=== PATIENT | female | born 1940 | race Two or more races ===

== ENCOUNTER 2017-05-28 17:39 | Inpatient (IN) | payer OTHER ==
--- NOTE | 2017-05-28 17:54 | PDOC ---
History of Present Illness - General History Source: Patient, EMS, Family Exam Limitations: No Limitations - History of Present Illness Initial Comments: 05/28/17 19:16 The patient is a 76 female with past medical history of who arrives to the ED via EMS with altered mental status that occurred today. As per patients family members they received a call from the sales expert home theater at 2:00 pm today who stated that the patient was speaking gibberish, referring to herself in third person, was not acting at her baseline, and felt feverish. The aid had stated that the patient also slipped out of bed today, at which the timing of this occurrence is not clear. She denies any LOC or head trauma. In the ED, the patients only complaint is of her chronic back pain. She denies any fever. She denies any numbness or tingling or incontinence. PCP: Dr. Anum Gee Allergies: N/A Social: Patient lives at home and has an aide <Leah Sánchez - Last Filed: 05/28/17 21:25> <Caridad Patel - Last Filed: 05/29/17 01:57> - General Chief Complaint: Injury Stated Complaint: FALL Time Seen by Provider: 05/28/17 17:53 Past History <Leah Sánchez - Last Filed: 05/28/17 21:25> - Past Medical History DVT: Yes (2 years ago, on coumadin) Diabetes: Yes GI Disorders: (colitis 07/04) HTN: Yes Hypercholesterolemia: Yes - Surgical History Cholecystectomy: Yes - Immunization History Immunization Up to Date: Yes - Psycho/Social/Smoking Cessation Hx Anxiety: No Suicidal Ideation: No Smoking Status: No Smoking History: Never smoked Have you smoked in the past 12 months: No Number of Cigarettes Smoked Daily: 0 Hx Alcohol Use: No <Caridad Patel - Last Filed: 05/29/17 01:57> - Past Medical History Allergies/Adverse Reactions: Allergies Allergy/AdvReac Type Severity Reaction Status Date / Time No Known Allergies Allergy Verified 05/28/17 17:58 Home Medications: Ambulatory Orders Ergocalciferol (Vitamin D2) [Vitamin D] 50,000 unit PO WEEKLY 01/08/15 Gabapentin 300 mg PO ASDIR 01/08/15 Insulin Glargine,Hum.rec.anlog [Lantus Solostar PEN (NF)] 20 units SQ HS Insulin NPL/Insulin Lispro [Humalog Mix 50-50 Kwikpen] 30 unit SQ BID 01/08/15 Metoprolol Tartrate [Lopressor -] 100 mg PO BID 01/08/15 Acetaminophen [Tylenol] 500 mg PO QID PRN 05/28/17 Aspirin [ASA -] 81 mg PO DAILY 05/28/17 Fluoxetine HCl 20 mg PO DAILY 05/28/17 Hydrocodone/Acetaminophen [Lorcet 5-325 mg Tablet] 1 each PO DAILY PRN 05/28/17 Memantine HCl [Namenda Xr] 7 mg PO DAILY 05/28/17 Nifedipine [Procardia Xl] 30 mg PO DAILY 05/28/17 Olmesartan Medoxomil 20 mg PO DAILY 05/28/17 Rosuvastatin [Crestor -] 20 mg PO HS 05/28/17 Tramadol HCl 50 mg PO TID 05/28/17 Review of Systems - Review of Systems Able to Perform ROS?: Yes Comments:: 05/28/17 19:18 CONSTITUTIONAL: Absent: fever, chills, diaphoresis, generalized weakness, malaise, loss of appetite HEENT: Absent: rhinorrhea, nasal congestion, throat pain, throat swelling, difficulty swallowing, mouth swelling, ear pain, eye pain, visual Changes CARDIOVASCULAR: Absent: chest pain, syncope, palpitations, irregular heart rate, lightheadedness , peripheral edema RESPIRATORY: Absent: cough, shortness of breath, dyspnea with exertion, orthopnea, wheezing, stridor, hemoptysis GASTROINTESTINAL: Absent: abdominal pain, abdominal distension, nausea, vomiting, diarrhea, constipation, melena, hematochezia GENITOURINARY: Absent: dysuria, frequency, urgency, hesitancy, hematuria, flank pain, genital pain MUSCULOSKELETAL: Present; chronic back pain SKIN: Absent: rash, itching, pallor HEMATOLOGIC/IMMUNOLOGIC: Absent: easy bleeding, easy bruising, lymphadenopathy, frequent infections ENDOCRINE: Absent: unexplained weight gain, unexplained weight loss, heat intolerance, cold intolerance NEUROLOGIC: Present: change in mental status Absent: headache,dizziness, unsteady gait, seizure, bladder or bowel incontinence PSYCHIATRIC: Absent: anxiety, depression, suicidal or homicidal ideation, hallucinations. <Leah Sánchez - Last Filed: 05/28/17 21:25> *Physical Exam - Vital Signs Last Vital Signs Temp Pulse Resp BP Pulse Ox 98.4 F 105 H 18 154/92 96 05/28/17 17:55 05/28/17 17:55 05/28/17 17:55 05/28/17 17:55 05/28/17 17:55 - Physical Exam Comments: 05/28/17 19:21 GENERAL: Obese. Awake, confused, not oriented to person. Follows commands. No acute distress. HEENT: Normocephalic, atraumatic. PERRLA, EOMI. No conjunctival pallor. Sclera are non- icteric. Moist mucous membranes. Oropharynx is clear. NECK: Supple. Full ROM. No JVD. Carotid pulses 2+ and symmetric, without bruits. No thyromegaly. No lymphadenopathy. CARDIOVASCULAR: Regular rate and rhythm. No murmurs, rubs, or gallops. Distal pulses are 2+ and symmetric. PULMONARY: No evidence of respiratory distress. Lungs clear to auscultation bilaterally. No wheezing, rales or rhonchi. ABDOMINAL: Soft. Non-tender. Non-distended. No rebound or guarding. No organomegaly. Normoactive bowel sounds. MUSCULOSKELETAL Normal range of motion at all joints. No bony deformities or tenderness. No CVA tenderness. EXTREMITIES: No cyanosis. No clubbing. No edema. No calf tenderness. SKIN: Warm and dry. Normal capillary refill. No rashes. No jaundice. NEUROLOGICAL: Alert, awake, appropriate. Cranial nerves 2-12 intact. No deficits to light touch and temperature in face, upper extremities and lower extremities. No motor deficits in the in face, upper extremities and lower extremities. Normoreflexic in the upper and lower extremities. Normal speech. Toes are down- going bilaterally. No pronator drift. No ataxia. PSYCHIATRIC: Cooperative. Good eye contact. Appropriate mood and affect. <PrincessLeah - Last Filed: 05/28/17 21:25> NIH Stroke Scale - Last Known Well Date/Time & Onset Date Last Known Well: 05/28/17 Time Last Known Well: 14:00 - Initial Evaluation Level of consciousness: Alert Ask patient the month and their age: Both incorrect Ask patient to open & close eyes; make fist and let go: Obeys both correctly Best gaze (horizontal eye movement): Normal Visual field testing: No visual field loss Facial paresis (Show teeth/raise eyebrows/close eyes tight): Normal symmetrical movement Motor Function: Left Arm: Normal Motor Function: Right Arm: Normal (extends arm 90 (or 45) degrees for 10 seconds without drift Motor Function: Left Leg: Normal (extends leg 30 degrees for 5 seconds without drift) Motor Function: Right Leg: Normal (extends leg 30 degrees for 5 seconds without drift) Limb Ataxia: No ataxia Sensory(Use pinprick test arms,legs,trunk,face/side to side): Normal Best language (Describe picture, name items, read sentences): No Aphasia Dysarthria (read several words): Mild to moderate slurring of words Extinction and Inattention: No abnormality - Total Score NIH Stroke Scale Score: 3 <Caridad Patel - Last Filed: 05/29/17 01:57> tPA Exclusion checklist 3-4.5h - Time Elapsed Date last known well: 05/28/17 Time last known well: 14:00 Elaspsed time: Day(s) and 11 Hour(s) and 55 Minutes - Thrombolytic Therapy Candidate Is patient eligible for thrombolytic therapy: No - Exclusion Criteria 3-4.5 hr SBP greater than 185 or DBP greater than 110mmHg despite tx: No Recent IC/spinal surgery,head trauma or stroke<3mos.: No Hx IC hemorrhage, IC neoplasm, AV malformation or aneurysm: No Active internal bleeding: No Blding diathesis(low plt ct, inc PTT,INR>1.7 or use of NOAC): No Symptoms suggest subarachnoid hemorrhage: No CT demonstrates multilobar infarct(>1/3 cerebral hemiphere): No Arterial puncture at noncompressible site in previous 7 days: No Blood glucose concentration less than 50mg/dL (2.7mmol/L): No - Relative Exclusion Criteria 3-4.5 hr Life expectancy <1 yr or severe co-morbid illness: No : No Patient/family refused: No Rapid improvement: No Stroke severity too mild: Yes Recent acute VA (w/in previous 3 months): No Seizure at onset with postictal residual neuro impairments: No Major surgery or serious trauma w/in previous 14 days: No Recent GI or hemorrhage (w/in previous 21 days): No - Add'l Relative Exclusion 3-4.5 hr Age > 80: No Hx of both diabetes AND prior ischemic stroke: No - Ineligibility reason(s) Reasons No tPA given: See reason(s) noted above <Caridad Patel - Last Filed: 05/29/17 01:57> Critical Care Time/MDM Note - Medical Decision Making Note: 05/28/17 19:[address] as reviewed by Dr. Carmona reports no evidence of acute intracranial pathology. Phone call placed to Dr. Santos, admitting physician for Dr. Gee. Case was discussed. Phone call placed to Dr. Greer, sewer separation designer neurologist and case was discussed. Documentation prepared by Leah Sánchez, acting as medical editor for Caridad Patel MD. <Leah Sánchez - Last Filed: 05/28/17 21:25> - Medical Decision Making Note: 05/29/17 01:55 76-year-old female brought in by ambulance due to confusion. It started at 2 PM in the afternoon. Her daughter said that her speech was garbled. The home health aide mention this when the daughter came home with in the afternoon at about 5:00. NIH score 3 No TPA due to mildness of the deficits and being out of the window for TPA CT of the head did not show any acute intracranial pathology, CBC and chemistries were reviewed. Patient does not have any infiltrates on the chest x -ray and is no evidence of a urinary tract infection Case is discussed with Dr. Hansen neurologist and the patient was given [address] Santos is the admitting physician <Caridad Patel - Last Filed: 05/29/17 01:57> Discharge Disposition <Leah Sánchez - Last Filed: 05/28/17 21:25> - Discharge Dispostion Admit: Yes <Caridad Patel - Last Filed: 05/29/17 01:57> - Diagnosis Hyperglycemia, Hypercholesteremia Altered mental status Qualifiers: Altered mental status type: unspecified Qualified Code(s): R41.82 - Altered mental status, unspecified Hypertension Qualifiers: Hypertension type: essential hypertension Qualified Code(s): I10 - Essential ( primary) hypertension TIA (transient ischemic attack) Qualifiers: Transient cerebral ischemia type: unspecified Qualified Code(s): G45.9 - Transient cerebral ischemic attack, unspecified - Discharge Dispostion Condition at time of disposition: Stable - Referrals
[2017-05-28] MEDS ORDERED: SODIUM CHLORIDE 1,000 ML IV SCH (18:00)
[2017-05-28 18:49] LABS: BASOPHIL 0.6 % (0-2.0); EOSINOPHIL 0.1 % (0-4.5); MCH 28.7 pg (25.7-33.7); MCHC 33.3 g/dl (32.0-36.0); MEAN CELL VOLUME 86.1 fl (80-96); MEAN PLT VOLUME 9.8 fl (7.5-11.1); NEUTROPHILS 76.9 % (42.8-82.8); PLATELET COUNT 170 K/MM3 (134-434); RDW 15.6 % (11.6-15.6); WHITE BLOOD COUNT 7.2 K/mm3 (4.0-10.0)
[2017-05-28 19:04] LABS: INR 1.11 (0.82-1.09); PROTHROMBIN TIME (PATIENT) 12.2 SEC (9.98-11.88)
[2017-05-28 19:22] LABS: ALBUMIN 3.6 g/dl (3.4-5.0); ALK PHOS 82 U/L (45-117); ANION GAP 8 (8-16); BILIRUBIN,TOTAL 0.4 mg/dL (0.2-1.0); CHOLESTEROL 207 mg/dL (50-200); CO2 28 mmol/L (21-32); CPK 82 IU/L (26-192); CREATININE 1.5 mg/dL (0.55-1.02); GLUCOSE,RANDOM 201 mg/dL (74-106); LDL CHOLESTEROL (ONLY SJRH) 130 mg/dL (5-100); SGOT/AST 19 U/L (15-37); SGPT/ALT 23 U/L (12-78); TOT PROT 7.1 g/dl (6.4-8.2); TROPONIN I < 0.02 ng/ml (0.00-0.05)
[2017-05-28 20:48] LABS: URINE APPEARANCE CLEAR; URINE BILIRUBIN NEGATIVE (NEGATIVE); URINE BLOOD NEGATIVE (NEGATIVE); URINE COLOR LTYELLOW; URINE GLUCOSE (UA) NEGATIVE (NEGATIVE); URINE KETONE NEGATIVE (NEGATIVE); URINE LEUK ESTERASE NEGATIVE (NEGATIVE); URINE NITRITE NEGATIVE (NEGATIVE); URINE UROBILINOGEN NEGATIVE mg/dL (0.2-1.0)
[2017-05-28 21:04] LABS: URINE PROTEIN 2+ (NEGATIVE)
[2017-05-28 21:05] LABS: URINE MUCUS RARE; URINE RBC <1 /hpf (0-3); URINE WBC <1 /hpf (3-5)
[2017-05-28] MEDS ORDERED: ASPIRIN 325 MG TABLET PO ONE (21:20)
[2017-05-28] MEDS ORDERED: ASPIRIN 325 MG TABLET ONE (21:33)
[2017-05-28] MEDS ORDERED: traMADol HCL 50 MG TABLET PO PRN (22:53)
[2017-05-28] MEDS: ACETAMINOPHEN 325 MG TABLET (FP) PO PRN (23:11)
[2017-05-28] MEDS ORDERED: ACETAMINOPHEN 325 MG TABLET (FP) ONE (23:12)
[2017-05-29 05:19] VITALS: BMI 41.1
[2017-05-29] MEDS ORDERED: METOPROLOL SUCCINATE 50 MG TAB.SR.24H (FP) ONE (05:51)
[2017-05-29] MEDS ORDERED: PROCHLORPERAZINE MALEATE 5 MG TABLET PO PRN (05:52)
[2017-05-29] MEDS ORDERED: METOPROLOL TARTRATE 50 MG TABLET (FP) PO ONE (05:52)
[2017-05-29] MEDS ORDERED: FUROSEMIDE 40 MG TABLET (FP) PO ONE (05:53)
[2017-05-29] MEDS ORDERED: FUROSEMIDE 40 MG/4 ML INJECTABLE VIAL IVPUSH ONE (05:54)
--- NOTE | 2017-05-29 06:10 | RAPID ---
<Jabari Flynn - Last Filed: 05/29/17 06:12> Physical Examination Vital Signs: Vital Signs Temperature 98.2 F 05/29/17 05:05 Pulse Rate 88 05/29/17 05:05 Respiratory Rate 20 05/29/17 05:05 Blood Pressure 142/72 05/29/17 05:05 O2 Sat by Pulse Oximetry (%) 96 05/29/17 05:05 Constitutional: Yes: Mild Distress, Obese, Other (Altered mentation) Neck: Yes: Supple, Trachea Midline Cardiovascular: Yes: Tachycardia, Other (regular rhythm) Respiratory: Yes: Regular, On Nasal O2, SOB. No: Accessory Muscle Use Neurological: Yes: Alert, Oriented (x2), Other (No focal deficits) Rapid Response - Rapid Response Assessment: Rapid response called at 0530. When team arrived pt was sitting at beside with nursing staff around her. She was mentally altered however was oriented x2. Nursing staff informed team that she had an elevated BP of 210/103, she had been vomiting, and she became short of breath. Pt confirmed increased work of breathing and was already on nasal cannula. Pt denied any chest pain. SpO2 on 2L NC: 98% EKG ordered showing sinus tachycardia with pre-existing 1st degree AV block. No ST abnormalities noted Lopressor 100mg PO standing dose was then administered Repeat BP taken was 159/94 P: Pt on admission had altered mental status which seemed unchanged on exam with being alert and oriented x2. Increased work of breathing noted; however O2sat okay on NC. 1) Hypertensive urgency with response to Lopressor 100mg PO --Repeat BP 159/94 --Troponin I ordered 2) Fluid overload on previous CXR --Lasix 40 IVP administered <Dwayne Sr - Last Filed: 05/29/17 06:15> Physical Examination Vital Signs: Vital Signs Temperature 98.2 F 05/29/17 05:05 Pulse Rate 88 05/29/17 05:05 Respiratory Rate 20 05/29/17 05:05 Blood Pressure 142/72 05/29/17 05:05 O2 Sat by Pulse Oximetry (%) 96 05/29/17 05:05 Findings/Remarks: Toprol XL 50 given BY Nurse instead of Lopressor. Will hold Metoprolol 100mg bid for now
[2017-05-29] MEDS: INSULIN SLIDING SCALE (NOVOLOG) 1 VIAL SQ SCH ×4 (06:27→22:19)
[2017-05-29] MEDS ORDERED: SODIUM CHLORIDE 0.45% 1,000 ML IV SCH (06:55)
[2017-05-29] MEDS ORDERED: ONDANSETRON 4 MG/2 ML VIAL IVPB PRN (06:55)
[2017-05-29] MEDS ORDERED: METOPROLOL TARTRATE 5 MG/5 ML VIAL IVPB PRN (07:05)
--- NOTE | 2017-05-29 08:49 | HP ---
Admitting History and Physical - Primary Care Physician PCP: Sendy Santos - Admission Chief Complaint: AMS History of Present Illness: The patient is a 76 female with past medical history of who arrives to the ED via EMS with altered mental status that occurred today. As per patients family members they received a call from the nursing home administrator at 2:00 pm today who stated that the patient was speaking gibberish, referring to herself in third person, was not acting at her baseline, and felt feverish. The aid had stated that the patient also slipped out of bed today, at which the timing of this occurrence is not clear. She denies any LOC or head trauma. In the ED, the patients only complaint is of her chronic back pain. She denies any fever. She denies any numbness or tingling or incontinence. 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 Cardiovascular: Yes: HTN Gastrointestinal: Yes: Other - Smoking History Smoking history: Never smoked Have you smoked in the past 12 months: No Aproximately how many cigarettes per day: 0 - Alcohol/Substance Use Hx Alcohol Use: No Home Medications - Allergies Allergies/Adverse Reactions: Allergies Allergy/AdvReac Type Severity Reaction Status Date / Time No Known Allergies Allergy Verified 05/28/17 17:58 - Home Medications Home Medications: Ambulatory Orders Ergocalciferol (Vitamin D2) [Vitamin D] 50,000 unit PO WEEKLY 01/08/15 Gabapentin 300 mg PO ASDIR 01/08/15 Insulin Glargine,Hum.rec.anlog [Lantus Solostar PEN (NF)] 20 units SQ HS Insulin NPL/Insulin Lispro [Humalog Mix 50-50 Kwikpen] 30 unit SQ BID 01/08/15 Metoprolol Tartrate [Lopressor -] 100 mg PO BID 01/08/15 Acetaminophen [Tylenol] 500 mg PO QID PRN 05/28/17 Aspirin [ASA -] 81 mg PO DAILY 05/28/17 Fluoxetine HCl 20 mg PO DAILY 05/28/17 Hydrocodone/Acetaminophen [Lorcet 5-325 mg Tablet] 1 each PO DAILY PRN 05/28/17 Memantine HCl [Namenda Xr] 7 mg PO DAILY 05/28/17 Nifedipine [Procardia Xl] 30 mg PO DAILY 05/28/17 Olmesartan Medoxomil 20 mg PO DAILY 05/28/17 Rosuvastatin [Crestor -] 20 mg PO HS 05/28/17 Tramadol HCl 50 mg PO TID 05/28/17 Review of Systems - Review of Systems Constitutional: reports: Weakness Eyes: reports: No Symptoms HENT: reports: No Symptoms Neck: reports: No Symptoms Cardiovascular: reports: No Symptoms Respiratory: reports: No Symptoms Gastrointestinal: reports: Abdominal Pain, Dysphagia, Nausea, Vomiting Genitourinary: reports: Incontinence Musculoskeletal: reports: Muscle Weakness Integumentary: reports: No Symptoms Neurological: reports: Pre-Existing Deficit, Unsteady Gait, Weakness Endocrine: reports: No Symptoms Hematology/Lymphatic: reports: No Symptoms Psychiatric: reports: Other Physical Examination Vital Signs: Vital Signs Temperature 98.2 F 05/29/17 05:05 Pulse Rate 88 05/29/17 05:05 Respiratory Rate 20 05/29/17 05:05 Blood Pressure 142/72 05/29/17 05:05 O2 Sat by Pulse Oximetry (%) 96 05/29/17 05:05 Constitutional: Yes: Mild Distress Eyes: Yes: WNL HENT: Yes: WNL Neck: Yes: WNL Cardiovascular: Yes: WNL Respiratory: Yes: WNL Gastrointestinal: Yes: Other Renal/: Yes: WNL Musculoskeletal: Yes: WNL Extremities: Yes: WNL Edema: No Peripheral Pulses WNL: Yes Integumentary: Yes: WNL Wound/Incision: Yes: Clean/Dry Neurological: Yes: Pre-Existing Deficit ...Motor Strength: LLE, RLE Psychiatric: Yes: Other Imaging - Results Cat Scan: Report Reviewed Problem List - Problems (1) Altered mental status Code(s): R41.82 - ALTERED MENTAL STATUS, UNSPECIFIED Qualifiers: Altered mental status type: unspecified Qualified Code(s): R41.82 - Altered mental status, unspecified (2) TIA (transient ischemic attack) Code(s): G45.9 - TRANSIENT CEREBRAL ISCHEMIC ATTACK, UNSPECIFIED Qualifiers: Transient cerebral ischemia type: unspecified Qualified Code(s): G45.9 - Transient cerebral ischemic attack, unspecified (3) Weakness Code(s): R53.1 - WEAKNESS (4) Vomiting Code(s): R11.10 - VOMITING, UNSPECIFIED Assessment/Plan ABD XRAY FOR VOMITING TRANSFER TELEMETRY CARDIO AND GI EVAL NEURO CHECKS FOR TIA LIPID PANEL PT EVAL [facility]
[2017-05-29 09:11] LABS: MCH 28.3 pg (25.7-33.7); MCHC 32.9 g/dl (32.0-36.0); MEAN CELL VOLUME 86.2 fl (80-96); MEAN PLT VOLUME 9.7 fl (7.5-11.1); PLATELET COUNT 159 K/MM3 (134-434); RDW 15.1 % (11.6-15.6); WHITE BLOOD COUNT 5.3 K/mm3 (4.0-10.0)
[2017-05-29] MEDS ORDERED: METOPROLOL SUCCINATE 50 MG TAB.SR.24H (FP) PO ONE (09:15)
[2017-05-29 09:56] LABS: ALBUMIN 3.6 g/dl (3.4-5.0); AMYLASE 30 U/L (25-115); ANION GAP 9 (8-16); CALCIUM 8.7 mg/dL (8.5-10.1); CO2 28 mmol/L (21-32); GLUCOSE,RANDOM 208 mg/dL (74-106)
[2017-05-29] MEDS ORDERED: METOPROLOL TARTRATE 50 MG TABLET (FP) PO SCH (10:00)
[2017-05-29] MEDS ORDERED: VALSARTAN 80 MG TABLET (UD) PO SCH (10:00)
[2017-05-29] MEDS ORDERED: ASPIRIN COATED 81 MG TABLET.EC PO SCH (10:00)
[2017-05-29] MEDS ORDERED: NIFEdipine E.R. 30 MG TABLET (FP) PO SCH (10:00)
[2017-05-29] MEDS ORDERED: FLUoxetine HCL 10 MG CAPSULE (FP) PO SCH (10:00)
[2017-05-29 10:03] LABS: ALK PHOS 77 U/L (45-117); BILIRUBIN,TOTAL 0.5 mg/dL (0.2-1.0); CREATININE 1.6 mg/dL (0.55-1.02); SGOT/AST 23 U/L (15-37); SGPT/ALT 26 U/L (12-78); TOT PROT 7.4 g/dl (6.4-8.2); TROPONIN I 0.02 ng/ml (0.00-0.05)
--- NOTE | 2017-05-29 10:38 | CONSULT ---
Admitting History and Physical - Primary Care Physician PCP: Sendy Santos - Admission History of Present Illness: Per EMR: "- Admission Chief Complaint: AMS History of Present Illness: The patient is a 76 female with past medical history of who arrives to the ED via EMS with altered mental status that occurred today. As per patients family members they received a call from the home service demonstrator at 2:00 pm today who stated that the patient was speaking gibberish, referring to herself in third person, was not acting at her baseline, and felt feverish. The aid had stated that the patient also slipped out of bed today, at which the timing of this occurrence is not clear. She denies any LOC or head trauma. In the ED, the patients only complaint is of her chronic back pain. She denies any fever. She denies any numbness or tingling or incontinence." Pt vomited x 3 at 5 am today. Selected Entries 05/28/17 05/28/17 05/29/17 17:55 22:34 05:05 Temperature 98.4 F 99.7 F H 98.2 F Laboratory Tests 05/28/17 05/29/17 18:20 08:30 WBC 7.2 5.3 History Source: Medical Record Limitations to Obtaining History: Clinical Condition - Past Medical History Cardiovascular: Yes: HTN Gastrointestinal: Yes: Other - Smoking History Smoking history: Never smoked Have you smoked in the past 12 months: No Aproximately how many cigarettes per day: 0 - Alcohol/Substance Use Hx Alcohol Use: No History - Admission Reason For Visit: GENERALIZED WEAKNESS,HYPERCHOLESTEROLEMIA - Diagnostics X-ray: Report Reviewed CT Scan: Report Reviewed - General Mental Status: Awake and Alert Attention: Intact Ability to Follow Directions: Fair (follows 1 stage by not simple 2 stage commands) Head/Neck Control: WFL - Hearing Hearing: Functional Hearing Aide: No Speech Evaluation - Communication 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) Communication: Yes: Simple Responses, Aphasia, Language Barrier Oral Expression Ability: Yes: Moderate Impairment - Speech Production Apraxia: No Able to Make Needs Known: Yes: Moderately Impaired - Speech Characteristics Voice Loudness: Normal Voice Pitch: Yes: Normal Voice Phonatory-based Quality: Yes: Normal Speech Pattern: Impaired Speech Clarity: < 25% Nasal Resonance: Normal Articulation: Yes: Precise - Language/Auditory Comprehension Follows: Yes: 1 Stage Simple Commands Observation: Able to respond to yes/no queries: No (inconsistent on simple level ), Comprehends Conversational Speech: No (simple ), Benefits from Slow Speech: Yes, Benefits from Repetiton: Yes, Benefits from Increased Volume of Speech: No - Language/Verbal Expression Aphasia: Yes: Paraphrasic Errors, Neologisms Able to Respond to Simple Queries: Yes: Moderately Impaired Able to Communicate Wants and Needs: Yes: Moderately Impaired Functional Communication Status: Yes: Moderately Impaired - Swallow Evaluation/Bedside Assessment Current Nutritional Intake: Regular, Thin Liquids Oral Secretions: Yes: WFL Dentition: Yes: Missing Teeth Facial Symmetry at Rest: Symmetrical Facial Symmetry on Retraction: Symmetrical Against Resistance Opening: Normal Against Resistance Closing: Normal Pucker Lips: Normal Smile: Normal Lingual Movement: Normal Lingual Speed of Movement: Normal Lingual Movement Strgth Against Opposition: Normal Lingual Movement Characteristics: Normal Velopharyngeal Movement: Normal Laryngeal Movement: Able to Palpate Labial Seal: WFL Chewing: WFL (missing dentition) Oral Prep Time: WFL A-P Transit: WFL Pocketing: None Timing of Swallow: WFL Coughing/Throat Clear: No Change in Voice: No Recommendations - Speech Evaluation, Impression/Plan Impression: Pt presents with moderate receptive and expressive language deficits - She follows 1 stage by not simple 2 stage commands. She can name and repeat, sometimes respond to simple questions eg function of a chair. Prpositional speech is impaired, generally with neologisms and paraphasic errors with occasional word interspersed in unintelligible, nonfunctional language. She demonstrates no frustration or awareness and denies difficulty. No dysarthria or dysphagia evident. She is Setswana speaking.Seems confused as well, with impaired memory and insight. Continuously getting OOB unattended. 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 First CT head (-). Pending neurology consult. - Dysphagia Impressions/Plan Swallowing Skills: WFL Dysphagia Impressions: No Impairment *Silent aspiration: cannot be R/O at bedside Dysphagia Treatment Plan: Safe Rate, 1/2 tsp. at a time, Elevate HOB during feed - Recommendations Diet Consistency: Regular (soft, easy to chew due to missing dentition) Liquids: Thin Liquids
[2017-05-29] MEDS ORDERED: PT OWN MED DRAWER 7, Y5N ONE ×2 (11:18→11:34)
[2017-05-29] MEDS: MEMANTINE HCL 5 MG TABLET (UD) PO SCH ×2 (11:23→22:19)
[2017-05-29] MEDS ORDERED: INSULIN (NOVOLOG) ASPART 100 UNITS/ML 10ML VIAL ONE ×2 (11:33→19:20)
[2017-05-29] MEDS ORDERED: PNEUMOC 13-VAL CONJ-DIP CRM/PF 0.5 ML DISP.SYRIN IM ONE (12:15)
--- NOTE | 2017-05-29 13:34 | CONSULT ---
Consultation: REQUESTING PROVIDER: CONSULT REQUEST: We have been asked to medically evaluate this patient for ( Nephrology). HISTORY OF PRESENT ILLNESS: History obtained from previous er and h/p. Patient is sinhala speaking and is restless, not oriented. The patient is a 76 female with past medical history of who arrives to the ED via EMS with altered mental status that occurred today. As per patients family members they received a call from the salesperson trailers and motor homes at 2:00 pm today who stated that the patient was speaking gibberish, referring to herself in third person, was not acting at her baseline, and felt feverish. The aid had stated that the patient also slipped out of bed today, at which the timing of this occurrence is not clear. She denies any LOC or head trauma. In the ED, the patients only complaint is of her chronic back pain. She denies any fever. She denies any numbness or tingling or incontinence. REVIEW OF SYSTEMS: unobtainable. PHYSICAL EXAMINATION Vital Signs - 24 hr 05/28/17 05/29/17 05/29/17 22:34 02:16 05:05 Temperature 99.7 F H 98.2 F Pulse Rate 88 Pulse Rate [ 111 H 92 H Apical] Respiratory 20 27 H 20 Rate Blood Pressure 142/72 Blood Pressure 127/78 [Right Arm] O2 Sat by Pulse 97 93 L 96 Oximetry (%) 05/29/17 05/29/17 09:00 11:31 Temperature 98.8 F Pulse Rate 99 H Pulse Rate [ Apical] Respiratory 20 20 Rate Blood Pressure 178/86 Blood Pressure [Right Arm] O2 Sat by Pulse 96 Oximetry (%) GENERAL: Awake, HEAD: Normal with no signs of trauma. EYES: conjunctiva clear. No lid lag. EARS, NOSE, THROAT: dry mucous membranes. LUNGS: Breath sounds equal, clear to auscultation bilaterally. No wheezes, and no crackles. No accessory muscle use. HEART: regular, s1s2 normal ABDOMEN: Soft, nontender, not distended, normoactive bowel sounds, no guarding, no rebound, MUSCULOSKELETAL: Normal range of motion at all joints. No bony deformities or tenderness. No CVA tenderness. UPPER EXTREMITIES: 2+ pulses, warm, well-perfused. No cyanosis. LOWER EXTREMITIES:warm, well-perfused. No calf tenderness. No peripheral edema. SKIN: Warm, dry, Laboratory Results - last 24 hr 05/28/17 05/29/17 05/29/17 21:21 06:27 08:30 WBC 5.3 RBC 4.80 Hgb 13.6 Hct 41.4 MCV 86.2 MCH 28.3 MCHC 32.9 RDW 15.1 Plt Count 159 MPV 9.7 Sodium Potassium Chloride Carbon Dioxide Anion Gap BUN Creatinine Creat Clearance w eGFR POC Glucometer 195 Random Glucose Hemoglobin A1c % Calcium Total Bilirubin AST ALT Alkaline Phosphatase Troponin I B-Natriuretic Peptide 773.04 H Total Protein Albumin Total Amylase Lipase Vitamin B12 Serum Folate RPR Titer 05/29/17 05/29/17 05/29/17 08:30 08:30 08:30 WBC RBC Hgb Hct MCV MCH MCHC RDW Plt Count MPV Sodium 134 L Potassium 3.7 Chloride 97 L Carbon Dioxide 28 Anion Gap 9 BUN 20 H Creatinine 1.6 H Creat Clearance w eGFR 31.51 POC Glucometer Random Glucose 208 H Hemoglobin A1c % Calcium 8.7 Total Bilirubin 0.5 D AST 23 D ALT 26 Alkaline Phosphatase 77 Troponin I 0.02 B-Natriuretic Peptide Total Protein 7.4 Albumin 3.6 Total Amylase 30 Lipase 91 Vitamin B12 604 Serum Folate 39 H RPR Titer Nonreactive 05/29/17 05/29/17 05/29/17 08:30 08:30 08:35 WBC RBC Hgb Hct MCV MCH MCHC RDW Plt Count MPV Sodium Potassium Chloride Carbon Dioxide Anion Gap BUN Creatinine Creat Clearance w eGFR POC Glucometer Random Glucose Hemoglobin A1c % 8.5 H D Calcium Total Bilirubin AST ALT Alkaline Phosphatase Troponin I Cancelled B-Natriuretic Peptide Total Protein Albumin Total Amylase Cancelled Lipase Cancelled Vitamin B12 Serum Folate RPR Titer 05/29/17 11:26 WBC RBC Hgb Hct MCV MCH MCHC RDW Plt Count MPV Sodium Potassium Chloride Carbon Dioxide Anion Gap BUN Creatinine Creat Clearance w eGFR POC Glucometer 236 Random Glucose Hemoglobin A1c % Calcium Total Bilirubin AST ALT Alkaline Phosphatase Troponin I B-Natriuretic Peptide Total Protein Albumin Total Amylase Lipase Vitamin B12 Serum Folate RPR Titer Active Medications Generic Name Dose Route Start Last Admin Trade Name Freq PRN Reason Stop Dose Admin Acetaminophen 650 mg 05/28/17 22:53 05/28/17 23:11 Tylenol - PO 650 mg Q6H PRN Administration FEVER OR PAIN Aspirin 81 mg 05/29/17 10:00 08/08/17 11:23 Ecotrin - PO 81 mg DAILY GORGE Administration Fluoxetine HCl 10 mg 05/29/17 10:00 05/29/17 12:21 Prozac - PO 10 mg DAILY GORGE Administration Sodium Chloride 1,000 mls @ 40 mls/hr 05/29/17 06:55 05/29/17 09:05 1/2 Normal Saline IV 40 mls/hr ASDIR GORGE Administration Insulin Aspart 1 vial 05/29/17 07:00 05/29/17 11:34 Novolog Vial Sliding Scale - SQ 4 unit ACHS GORGE Administration Protocol Insulin Detemir 20 units 05/29/17 22:00 Levemir Vial SQ HS GORGE Memantine 5 mg 05/29/17 10:00 05/29/17 11:23 Namenda - PO 5 mg BID GORGE Administration Metoprolol Tartrate 100 mg 05/29/17 10:00 Lopressor - PO BID GORGE Metoprolol Tartrate 5 mg 05/29/17 07:05 Lopressor Injection - IVPB Q6H PRN SBP >120 Nifedipine 30 mg 05/29/17 10:00 05/29/17 11:23 Procardia Xl - PO 30 mg DAILY GORGE Administration Ondansetron HCl 4 mg 05/29/17 06:55 05/29/17 09:05 Zofran Injection IVPB 4 mg Q6H PRN Administration NAUSEA AND/OR VOMITING Prochlorperazine Maleate 5 mg 05/29/17 05:52 Compazine - PO Q4H PRN NAUSEA AND/OR VOMITING Rosuvastatin Calcium 20 mg 05/29/17 22:00 Crestor - PO HS GORGE Tramadol HCl 50 mg 05/28/17 22:53 Ultram - PO Q8H PRN PAIN Valsartan 80 mg 05/29/17 10:00 05/29/17 11:23 Diovan - PO 80 mg DAILY GORGE Administration ASSESSMENT/PLAN: CKD Pseudohyponatremia. Altered mental status Weakness DM Dementia Plan patient is at her base line cr and bun. Her base line is 1.5-1.6 Pseudohypontremia is due to hyperglycemia, corrected Na is more than 135 Monitor renal function. Monitor electrolytes. Avoid nephrotoxic drugs. Monitor and control BP. Monitor and control blood sugar Monitor intake and output. Dispo: We will continue to follow the patient. Thank you for this consultative opportunity. Visit type - Emergency Visit Emergency Visit: Yes ED Registration Date: 05/28/17 Care time: The patient presented to the Emergency Department on the above date and was hospitalized for further evaluation of their emergent condition. - New Patient This patient is new to me today: Yes Date on this admission: 05/29/17 - Critical Care Critical Care patient: No
--- NOTE | 2017-05-29 13:56 | EKG ---
Test Reason : Blood Pressure : / mmHG Vent. Rate : 101 BPM Atrial Rate : 101 BPM P-R Int : 218 ms QRS Dur : 104 ms QT Int : 370 ms P-R-T Axes : 052 -61 080 degrees QTc Int : 479 ms SINUS TACHYCARDIA WITH 1ST DEGREE A-V BLOCK LEFT AXIS DEVIATION ( LAFB). PULMONARY DISEASE PATTERN ABNORMAL ECG WHEN COMPARED WITH ECG OF 17-MAR-2014 03:48, VENT. RATE HAS INCREASED BY 46 BPM INCOMPLETE RIGHT BUNDLE BRANCH BLOCK IS NO LONGER PRESENT T WAVE AMPLITUDE HAS INCREASED IN ANTERIOR LEADS BASELINE ARTIFACTS REPEAT EKG IF CLINICALLY INDICATED Confirmed by SADIE GRANDE MD ([id number]) on 05/29/2017 1:56:00 PM Referred By: Confirmed By:SADIE GRANDE MD
[2017-05-29 14:00] LABS: ERYTHROCYTE SEDIMENTATION RATE 35 mm/hr (0-30)
[2017-05-29] MEDS: ACETAMINOPHEN 325 MG TABLET (FP) PO PRN (15:41)
[2017-05-29] MEDS: SODIUM CHLORIDE 0.45% 1,000 ML IV SCH (15:43)
--- NOTE | 2017-05-29 16:14 | CON.CARD ---
Consult Consult Specialty:: Cardiology Reason for Consultation:: HTN. TIA - History of Present Illness Chief Complaint: Change in mental status History of Present Illness: This is a 76 year old female with a PMH of HTN. She presented to the ED with a change in mental status and an expressive aphasia. EKG showed sinus tachycardia at 101 BPM with LAD, PRWP across the anterior precordial leads, and NSSTTW changes. Initial Head CT was without acuter pathology. BP was elevated to 178/86 mmHg but reduced to 157/77 mmHg. 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 Cardio/Vascular: Yes: HTN Gastrointestinal: Yes: Other - Alcohol/Substance Use Hx Alcohol Use: No - Smoking History Smoking history: Never smoked Have you smoked in the past 12 months: No Aproximately how many cigarettes per day: 0 Home Medications - Allergies Allergies/Adverse Reactions: Allergies Allergy/AdvReac Type Severity Reaction Status Date / Time No Known Allergies Allergy Verified 05/28/17 17:58 - Home Medications Home Medications: Ambulatory Orders Ergocalciferol (Vitamin D2) [Vitamin D] 50,000 unit PO WEEKLY 01/08/15 Gabapentin 300 mg PO ASDIR 01/08/15 Insulin Glargine,Hum.rec.anlog [Lantus Solostar PEN (NF)] 20 units SQ HS Insulin NPL/Insulin Lispro [Humalog Mix 50-50 Kwikpen] 30 unit SQ BID 01/08/15 Metoprolol Tartrate [Lopressor -] 100 mg PO BID 01/08/15 Acetaminophen [Tylenol] 500 mg PO QID PRN 05/28/17 Aspirin [ASA -] 81 mg PO DAILY 05/28/17 Fluoxetine HCl 20 mg PO DAILY 05/28/17 Hydrocodone/Acetaminophen [Lorcet 5-325 mg Tablet] 1 each PO DAILY PRN 05/28/17 Memantine HCl [Namenda Xr] 7 mg PO DAILY 05/28/17 Nifedipine [Procardia Xl] 30 mg PO DAILY 05/28/17 Olmesartan Medoxomil 20 mg PO DAILY 05/28/17 Rosuvastatin [Crestor -] 20 mg PO HS 05/28/17 Tramadol HCl 50 mg PO TID 05/28/17 Review of Systems Unable to obtain ROS, reason: As per HPI Vital Signs: Vital Signs Temperature 103.7 F H 05/29/17 15:50 Pulse Rate 99 H 05/29/17 15:50 Respiratory Rate 20 05/29/17 11:31 Blood Pressure 157/77 05/29/17 15:50 O2 Sat by Pulse Oximetry (%) 96 05/29/17 09:00 Constitutional: Yes: No Distress Neck: Yes: WNL Respiratory: Yes: CTA Bilaterally Gastrointestinal: Yes: Soft Cardiovascular: Yes: Regular Rate and Rhythm Heart Sounds: Yes: S1, S2 (No MRHG) Extremities: Yes: WNL Edema: No - Other Data Labs, Other Data: CBC, BMP 05/29/17 08:30 05/29/17 08:30 INR, PTT INR 1.11 (0.82-1.09) 05/28/17 18:20 Troponin, BNP 05/28/17 05/29/17 05/29/17 21:21 08:30 08:35 Troponin I 0.02 Cancelled B-Natriuretic Peptide 773.04 H Troponin, BNP 05/28/17 05/29/17 05/29/17 21:21 08:30 08:35 Troponin I 0.02 Cancelled B-Natriuretic Peptide 773.04 H Assessment/Plan Change in Mental Status TIA/CVA Monitor for atrial arrhythmias Obtain and Echocardiogram Obtain Carotid Dopplers Current BP 157/77 mmHg and would continue current BP meds including: Metoprolol Tartate 100 mg PO BID Nifedipine XL 30 mg daily Olmesartan 20 mg daily Continue for secondary prevention: Aspirin 81 mg PO daily Crestor 20 mg PO daily Will follow with you.
--- NOTE | 2017-05-29 16:50 | CON.GI ---
Consult Consult Specialty:: GI: For Dr. Fu Referred by:: Aaliyah Botello NP Reason for Consultation:: Vomiting - History of Present Illness Chief Complaint: Patient confused, cannot give CC. Admitted for change in mental status History of Present Illness: 76F admitted through [facility] ER for evaluation of altered mental status. Patient' s family was present at bedside to give history. Her son tells me that she was in her usual state of health up until Sunday, when she began speaking incoherently at times, became more forgetful and lethargic/somnolent. While he describes Ms. Mccormick as being mildly forgetful at times as her baseline mental status, she had a major change in her overall status. While confused, she had a bowel movement in the bed and then subsequently confused, prompting further evaluation. Called now to evaluate an episode of vomiting. This occurred early this morning at around 5 AM. There has been no further vomiting today and she denies abdominal pain. She has a reported temp of 103.7 per her nurse around the time of my evaluation. Ms. Mccormick's son tells me that prior to admission, a tactile fever was described by her home health aid however a temperature was not taken. There has been no reported complaints of headache, cough, abdominal pain. She does have a chronic lower back pain and per her family, they believe that Ms. Mccormick has been complaining about it moreso of late. There has been no reported diarrhea since admission. There has been no recent travel or sick contacts with similar complaints. 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 Cardio/Vascular: Yes: HTN Gastrointestinal: Yes: Other - Past Surgical History Past Surgical History: Yes: Cholecystectomy (Laparoscopic), Tubal Ligation ( possible per the family) - Alcohol/Substance Use Hx Alcohol Use: No - Smoking History Smoking history: Never smoked Have you smoked in the past 12 months: No Aproximately how many cigarettes per day: 0 - Social History Usual Living Arrangement: Alone ADL: Support Services Place of : Other History of Recent Travel: No Home Medications - Allergies Allergies/Adverse Reactions: Allergies Allergy/AdvReac Type Severity Reaction Status Date / Time No Known Allergies Allergy Verified 05/28/17 17:58 - Home Medications Home Medications: Ambulatory Orders Ergocalciferol (Vitamin D2) [Vitamin D] 50,000 unit PO WEEKLY 01/08/15 Gabapentin 300 mg PO ASDIR 01/08/15 Insulin Glargine,Hum.rec.anlog [Lantus Solostar PEN (NF)] 20 units SQ HS Insulin NPL/Insulin Lispro [Humalog Mix 50-50 Kwikpen] 30 unit SQ BID 01/08/15 Metoprolol Tartrate [Lopressor -] 100 mg PO BID 01/08/15 Acetaminophen [Tylenol] 500 mg PO QID PRN 05/28/17 Aspirin [ASA -] 81 mg PO DAILY 05/28/17 Fluoxetine HCl 20 mg PO DAILY 05/28/17 Hydrocodone/Acetaminophen [Lorcet 5-325 mg Tablet] 1 each PO DAILY PRN 05/28/17 Memantine HCl [Namenda Xr] 7 mg PO DAILY 05/28/17 Nifedipine [Procardia Xl] 30 mg PO DAILY 05/28/17 Olmesartan Medoxomil 20 mg PO DAILY 05/28/17 Rosuvastatin [Crestor -] 20 mg PO HS 05/28/17 Tramadol HCl 50 mg PO TID 05/28/17 Family Disease History - Family Disease History Other Family History: Non-contriubuatory Review of Systems - Review of Systems Constitutional: reports: Fever, Lethargy. denies: Unintentional Wgt. Loss Cardiovascular: denies: Chest Pain Respiratory: reports: SOB (baseline, worse when laying flat) Gastrointestinal: reports: Vomiting. denies: Abdominal Pain, Constipation, Diarrhea, Melena, Rectal Bleeding, Vomiting Blood Genitourinary: denies: Frequency, Urgency Musculoskeletal: reports: Back Pain (lower back pain) Neurological: reports: Confusion Physical Exam-GI Vital Signs: Vital Signs Temperature 103.7 F H 05/29/17 15:50 Pulse Rate 99 H 05/29/17 15:50 Respiratory Rate 20 05/29/17 11:31 Blood Pressure 157/77 05/29/17 15:50 O2 Sat by Pulse Oximetry (%) 96 05/29/17 09:00 Constitutional: Yes: Calm Eyes: No: Sclera Icterus Cardiovascular: Yes: Tachycardia. No: Murmur Respiratory: Yes: CTA Bilaterally Gastrointestinal Inspection: Yes: Scars (healed trochar scars, healed small midline pelvic surgical scar) ...Auscultate: Yes: Normoactive Bowel Sounds ...Palpate: No: Tenderness ...Percussion: Yes: Tympanitic ( mild tympany LUQ) Edema: No (No LE edema) Neurological: Yes: Alert, Confusion Labs: CBC, BMP 05/29/17 08:30 05/29/17 08:30 INR, PTT INR 1.11 (0.82-1.09) 05/28/17 18:20 05/28/17 20:30 Urine Color Ltyellow Urine Appearance Clear Urine pH 7.0 D Ur Specific [place] 1.020 Urine Protein 2+ H Urine Glucose (UA) Negative Urine Ketones Negative Urine Blood Negative Urine Nitrite Negative Urine Bilirubin Negative Urine Urobilinogen Negative Ur Leukocyte Esterase Negative Urine RBC <1 Urine WBC <1 Ur Epithelial Cells Rare Urine Mucus Rare Imaging - Results X-ray: Report Reviewed (suboptimal study) Problem List - Problems (1) Vomiting Assessment/Plan: No further vomiting at this time. ? if secondary to ongoing systemic process such as infection, secondary to pain or secondary to gastroparesis elevated blood glucose in the setting of systemic process as opposed to primary GI etiology. Hold opiate analgesics Aspiration precautions CT scan of the abdomen and pelvis has been ordered to evaluate for ileus / gastric distention CT scan of the Chest / L-Spine ordered as well to assess for a source of infection in the setting of marked fever. This was discussed with Dr. Santos ID evaluation has been requested by Dr. Santos Consider neuro eval Await abd/pelvis CT scan results Clear liquids for now Code(s): R11.10 - VOMITING, UNSPECIFIED Qualifiers: Vomiting type: unspecified
--- NOTE | 2017-05-29 17:32 | PN ---
Teaching Attending Note Name of Resident: Tristan Shaikh (Nephrology) ATTENDING PHYSICIAN STATEMENT I saw and evaluated the patient. I reviewed the resident's note and discussed the case with the resident. I agree with the resident's findings and plan as documented. Nephrology Consult Please see consult filled out by resident. Called to evaluate pt for elevated creatinine. She is awake but not able to give full history. She complains of generalized malaise. She denies dysuria or hematuria. pmhx dm htn chol nkda family hx unable to obtain social neg Current Medications Generic Name Dose Route Start Last Admin Trade Name Freq PRN Reason Stop Dose Admin Acetaminophen 650 mg 05/28/17 22:53 05/29/17 15:41 Tylenol - PO 650 mg Q6H PRN Administration FEVER OR PAIN Aspirin 81 mg 05/29/17 10:00 05/29/17 11:23 Ecotrin - PO 81 mg DAILY GORGE Administration Fluoxetine HCl 10 mg 05/29/17 10:00 05/29/17 12:21 Prozac - PO 10 mg DAILY GORGE Administration Sodium Chloride 1,000 mls @ 75 mls/hr 05/29/17 15:03 05/29/17 15:43 1/2 Normal Saline IV 75 mls/hr ASDIR GORGE Administration Insulin Aspart 1 vial 05/29/17 07:00 05/29/17 11:34 Novolog Vial Sliding Scale - SQ 4 unit ACHS GORGE Administration Protocol Insulin Detemir 20 units 05/29/17 22:00 Levemir Vial SQ HS GORGE Memantine 5 mg 05/29/17 10:00 05/29/17 11:23 Namenda - PO 5 mg BID GORGE Administration Metoprolol Tartrate 100 mg 05/29/17 10:00 Lopressor - PO BID GORGE Metoprolol Tartrate 5 mg 05/29/17 07:05 Lopressor Injection - IVPB Q6H PRN SBP >120 Nifedipine 30 mg 05/29/17 10:00 05/29/17 11:23 Procardia Xl - PO 30 mg DAILY GORGE Administration Ondansetron HCl 4 mg 05/29/17 06:55 05/29/17 09:05 Zofran Injection IVPB 4 mg Q6H PRN Administration NAUSEA AND/OR VOMITING Prochlorperazine Maleate 5 mg 05/29/17 05:52 Compazine - PO Q4H PRN NAUSEA AND/OR VOMITING Rosuvastatin Calcium 20 mg 05/29/17 22:00 Crestor - PO HS GORGE Tramadol HCl 50 mg 05/28/17 22:53 Ultram - PO Q8H PRN PAIN Valsartan 80 mg 05/29/17 10:00 05/29/17 11:23 Diovan - PO 80 mg DAILY GORGE Administration Last Vital Signs Temp Pulse Resp BP Pulse Ox 103.7 F H 99 H 20 157/77 96 05/29/17 15:50 05/29/17 15:50 05/29/17 11:31 05/29/17 15:50 05/29/17 09:00 Laboratory Tests 12/18/14 01/08/15 05/28/17 13:55 22:57 18:20 WBC Hgb Creatinine 1.4 H 1.6 H 1.5 H Urine Protein 05/28/17 05/29/17 05/29/17 20:30 08:30 08:30 WBC 5.3 Hgb 13.6 Creatinine 1.6 H Urine Protein 2+ H cardio s1s2 reg pulm on nc GI soft, obese ext neg edema neuro awake skin neg rash Impression 1. CKD 2. DM 3. HTN 4. altered mental status 5. vomiting Plan - renal function is not far from baseline - monitor creatinine - gentle hydration - hold sedatives - follow cultures Dr Salmon
--- NOTE | 2017-05-29 17:47 | CON.NEURO ---
Consult - History of Present Illness History of Present Illness: brought for confusion and fall HPI 76 year old female history of DM, HTN, Alzheimer disease , brought to hospital for mental status change. Ct head was unremarkable. She was felt feverish and at hospital she is found to have 103 fever. She is sitting on chair. As per family she is confused and not able to communicate in swiss. She is more communicative in bermudian and she is not very coherent in bermudian either. 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 Cardio/Vascular: Yes: HTN Gastrointestinal: Yes: Other - Past Surgical History Past Surgical History: Yes: Cholecystectomy (Laparoscopic), Tubal Ligation ( possible per the family) - Alcohol/Substance Use Hx Alcohol Use: No - Smoking History Smoking history: Never smoked Have you smoked in the past 12 months: No Aproximately how many cigarettes per day: 0 - Social History Usual Living Arrangement: Alone ADL: Support Services History of Recent Travel: No Home Medications - Allergies Allergies/Adverse Reactions: Allergies Allergy/AdvReac Type Severity Reaction Status Date / Time No Known Allergies Allergy Verified 05/28/17 17:58 - Home Medications Home Medications: Ambulatory Orders Ergocalciferol (Vitamin D2) [Vitamin D] 50,000 unit PO WEEKLY 01/08/15 Gabapentin 300 mg PO ASDIR 01/08/15 Insulin Glargine,Hum.rec.anlog [Lantus Solostar PEN (NF)] 20 units SQ HS Insulin NPL/Insulin Lispro [Humalog Mix 50-50 Kwikpen] 30 unit SQ BID 01/08/15 Metoprolol Tartrate [Lopressor -] 100 mg PO BID 01/08/15 Acetaminophen [Tylenol] 500 mg PO QID PRN 05/28/17 Aspirin [ASA -] 81 mg PO DAILY 05/28/17 Fluoxetine HCl 20 mg PO DAILY 05/28/17 Hydrocodone/Acetaminophen [Lorcet 5-325 mg Tablet] 1 each PO DAILY PRN 05/28/17 Memantine HCl [Namenda Xr] 7 mg PO DAILY 05/28/17 Nifedipine [Procardia Xl] 30 mg PO DAILY 05/28/17 Olmesartan Medoxomil 20 mg PO DAILY 05/28/17 Rosuvastatin [Crestor -] 20 mg PO HS 05/28/17 Tramadol HCl 50 mg PO TID 05/28/17 Family Disease History - Family Disease History Other Family History: Non-contriubuatory Physical Exam-Neuro Vital Signs: Vital Signs Temperature 103.7 F H 05/29/17 15:50 Pulse Rate 99 H 05/29/17 15:50 Respiratory Rate 20 05/29/17 11:31 Blood Pressure 157/77 05/29/17 15:50 O2 Sat by Pulse Oximetry (%) 96 05/29/17 09:00 Labs: CBC, BMP 05/29/17 08:30 05/29/17 08:30 INR, PTT INR 1.11 (0.82-1.09) 05/28/17 18:20 NIH Stroke Scale - Total Score NIH Stroke Scale Score: 0 Imaging - Results Cat Scan: Report Reviewed Assessment/Plan cc brought for confusion and fall HPI 76 year old female history of DM, HTN, Alzheimer disease , brought to hospital for mental status change. Ct head was unremarkable. She was felt feverish and at hospital she is found to have 103 fever. She is sitting on chair. As per family she is confused and not able to communicate in swiss. She is more communicative in bermudian and she is not very coherent in bermudian either. Past Medical History DM, HTN and Dmentia Home Medication Ergocalciferol (Vitamin D2) [Vitamin D] 50,000 unit PO WEEKLY 01/08/15 Gabapentin 300 mg PO ASDIR 01/08/15 Insulin Glargine,Hum.rec.anlog [Lantus Solostar PEN (NF)] 20 units SQ HS Insulin NPL/Insulin Lispro [Humalog Mix 50-50 Kwikpen] 30 unit SQ BID 01/08/15 Metoprolol Tartrate [Lopressor -] 100 mg PO BID 01/08/15 Acetaminophen [Tylenol] 500 mg PO QID PRN 05/28/17 Aspirin [ASA -] 81 mg PO DAILY 05/28/17 Fluoxetine HCl 20 mg PO DAILY 05/28/17 Hydrocodone/Acetaminophen [Lorcet 5-325 mg Tablet] 1 each PO DAILY PRN 05/28/17 Memantine HCl [Namenda Xr] 7 mg PO DAILY 05/28/17 Nifedipine [Procardia Xl] 30 mg PO DAILY 05/28/17 Olmesartan Medoxomil 20 mg PO DAILY 05/28/17 Rosuvastatin [Crestor -] 20 mg PO HS 05/28/17 Tramadol HCl 50 mg PO TID 05/28/17 Physical Examination 103 temperature alert follow command, sitting in chair, able to track objects, and opens eye spontaneously she is oriented x 0 eomi, no face asymmetry, moving all extremity sensation is grossly normal ct head is unremarkable Assessment- Disorientation due to medical condition ( fever , etiology of fever is being investigated) , other possibility of stroke cant be rule out , Unlikley to be meningiits ( thereis no neck stiffness or headache ) Plan-- agree with MRI of brain - work up for fever - continue supportive treatment and current treatment Thanks for consult Jatin Greer MD Neurology Attending
[2017-05-29 20:37] LABS: BASOPHIL 0.5 % (0-2.0); EOSINOPHIL 0.1 % (0-4.5); MCH 28.9 pg (25.7-33.7); MEAN CELL VOLUME 87.6 fl (80-96); MEAN PLT VOLUME 10.7 fl (7.5-11.1); NEUTROPHILS 65.4 % (42.8-82.8); PLATELET COUNT 157 K/MM3 (134-434); RDW 15.3 % (11.6-15.6); WHITE BLOOD COUNT 5.7 K/mm3 (4.0-10.0)
[2017-05-29] MEDS ORDERED: ALPRAZolam 2 MG TABLET PO ONE (20:45)
[2017-05-29 21:07] LABS: ALBUMIN 3.5 g/dl (3.4-5.0); ANION GAP 9 (8-16); BILIRUBIN,TOTAL 0.5 mg/dL (0.2-1.0); CALCIUM 9.1 mg/dL (8.5-10.1); CO2 28 mmol/L (21-32); CREATININE 1.9 mg/dL (0.55-1.02); GLUCOSE,RANDOM 240 mg/dL (74-106); SGOT/AST 28 U/L (15-37); SGPT/ALT 27 U/L (12-78); TOT PROT 7.2 g/dl (6.4-8.2)
[2017-05-29 21:08] LABS: ALK PHOS 72 U/L (45-117)
[2017-05-29] MEDS ORDERED: ROSUVASTATIN CA 20 MG TABLET (FP) PO SCH (22:00)
[2017-05-29] MEDS ORDERED: INSULIN DETEMIR 100 UNITS/ML MDV SQ SCH (22:00)
[2017-05-30 00:27] LABS: ALLENS TEST POSITIVE; ART PUNCT SITE RIGHT RADIAL; ARTERIAL BLD GAS O2 SATURATION 28.7 % (90-98.9); ARTERIAL BLOOD GAS BASE EXCESS 3.5 meq/l (-2-2); ARTERIAL BLOOD GAS HCO3 28.4 meq/L (22-26); ARTERIAL BLOOD GAS PO2 24.3 mmHg (70-100); LPM/O2% 100; PT'S TEMP 103; PT. ON O2? YES; TYPE OF O2 NONREBREATHER
[2017-05-30 00:29] LABS: ARTERIAL BLOOD GAS pH 7.37 (7.35-7.45)
[2017-05-30] MEDS ORDERED: ACETAMINOPHEN 1000 MG/100 ML VIAL (NON FORMULARY) IVPB ONE ×3 (00:30→17:48)
--- NOTE | 2017-05-30 00:39 | HOSP ---
Subjective - Review of Symptoms Events since last encounter: Rapid response was initiated at around 12:10am for desaturation and altered mental status. Arrived at scene and found patient combative, altered, fevr 103F and hypoxic (81% on room air). For rest of the vitals, refer to the rapid sheet. Started 100% non-rebreather and sat improved to 98%. Also started on heparin gtt and obtained stat labs, UA, UX, lactic acid, stat duplex b/l LE. Physical Examination Vital Signs: Vital Signs Temperature 99.1 F 05/29/17 21:05 Pulse Rate 84 05/29/17 21:05 Respiratory Rate 20 05/29/17 21:05 Blood Pressure 124/71 05/29/17 21:05 O2 Sat by Pulse Oximetry (%) 96 05/29/17 21:00 Constitutional: Yes: Anxious, Diaphoresis, Moderate Distress Cardiovascular: Yes: Tachycardia, Murmur (ejection), S1, S2 Respiratory: Yes: CTA Bilaterally Neurological: Yes: Confusion. No: Oriented Labs: CBC, BMP 05/29/17 20:25 05/29/17 20:25 Hospitalist Encounter Assessment: Acute hypoxemic respiratory distress - sepsis vs. PE - UA and UX - f/u CT chest official report - Vanc + zosyn renally dosed x 1 - Tynelol for fever - Stat doppler for b/l LE - Start heparin gtt - Transfer to ICU Visit type - Emergency Visit Emergency Visit: No - New Patient This patient is new to me today: Yes Date on this admission: 05/30/17 - Critical Care Critical Care patient: No
[2017-05-30] MEDS ORDERED: HEPARIN NA (PORCINE) 5,000 UNITS/ML 1ML VIAL IVPUSH PRN ×2 (00:41)
--- NOTE | 2017-05-30 00:42 | HOSP ---
Subjective - Review of Symptoms Subjective: Pt. seen at bedside for AMS VS @ Bedside 02 81 RR 22 BP 157/75 T103.4, placed on 100% NRB with improvement to 98 GEN: Elderly female in moderate distress HEENT: NCAT, PERRL, CARD: RRR S1, S2 RESP: Decreased BS @bases EXT: - C/C/E CBCD WBC 5.7 K/mm3 (4.0-10.0) 05/29/17 20:25 RBC 4.73 M/mm3 (3.60-5.2) 05/29/17 20:25 Hgb 13.7 GM/dL (10.7-15.3) 05/29/17 20:25 Hct 41.4 % (32.4-45.2) 05/29/17 20:25 MCV 87.6 fl (80-96) 05/29/17 20:25 MCHC 33.0 g/dl (32.0-36.0) 05/29/17 20:25 RDW 15.3 % (11.6-15.6) 05/29/17 20:25 Plt Count 157 K/MM3 (134-434) 05/29/17 20:25 MPV 10.7 fl (7.5-11.1) D 05/29/17 20:25 CMP Sodium 132 mmol/L (136-145) L 05/29/17 20:25 Potassium 3.5 mmol/L (3.5-5.1) 05/29/17 20:25 Chloride 95 mmol/L (98-107) L 05/29/17 20:25 Carbon Dioxide 28 mmol/L (21-32) 05/29/17 20:25 Anion Gap 9 (8-16) 05/29/17 20:25 BUN 26 mg/dL (7-18) H D 05/29/17 20:25 Creatinine 1.9 mg/dL (0.55-1.02) H 05/29/17 20:25 Creat Clearance w eGFR 25.84 (>60) 05/29/17 20:25 Random Glucose 240 mg/dL (74-106) H 05/29/17 20:25 Calcium 9.1 mg/dL (8.5-10.1) 05/29/17 20:25 Total Bilirubin 0.5 mg/dL (0.2-1.0) 05/29/17 20:25 AST 28 U/L (15-37) D 05/29/17 20:25 ALT 27 U/L (12-78) 05/29/17 20:25 Alkaline Phosphatase 72 U/L (45-117) 05/29/17 20:25 Total Protein 7.2 g/dl (6.4-8.2) 05/29/17 20:25 Albumin 3.5 g/dl (3.4-5.0) 05/29/17 20:25 CARDIAC ENZYMES Creatine Kinase 82 IU/L (26-192) 05/28/17 18:20 Troponin I 0.02 ng/ml (0.00-0.05) 05/29/17 08:30 CT CHEST/ABDOMEN/PELVIS_- PENDING A/P.) AMS/Fever- DDx: SEPSIS VS. PE - ABG - [place] cx - LA - VANCO/ZOSYN- renally dosed, ID already on consult, needs UA/Ucx - REPEAT cbc/bmp - TYLENOL IV - Heparin gtt, pt. cannot get CTA (inc. Cr)- Wells 3(HR may be blunted due to BB ) - DUPLEX bilateral LE - Pt. already has MRI brain ordered fu for AMS CC Time: 30 minutes - Case discussed with ICU Warehouse Shipper and PCP Physical Examination Vital Signs: Vital Signs Temperature 99.1 F 05/29/17 21:05 Pulse Rate 84 05/29/17 21:05 Respiratory Rate 20 05/29/17 21:05 Blood Pressure 124/71 05/29/17 21:05 O2 Sat by Pulse Oximetry (%) 96 05/29/17 21:00 Labs: CBC, BMP 05/29/17 20:25 05/29/17 20:25
[2017-05-30] MEDS ORDERED: PIPERACILLIN/TAZOB 3.375 GM 3.375 GM in DEXTROSE 5%-WATER - 50 ML IVPB ONE (00:46)
[2017-05-30] MEDS ORDERED: VANCOMYCIN 1,000 MG in DEXTROSE 5%-WATER - 250 ML IVPB ONE (00:46)
[2017-05-30] MEDS ORDERED: PIPERACILLIN/TAZOB 3.375 GM/50 ML PRE-DOCKED IVPB ONE (01:00)
[2017-05-30] MEDS ORDERED: VANCOMYCIN 1 GRAM (PRE-DOCKED) 1,000 MG/250 ML BAG IVPB ONE (01:00)
[2017-05-30 01:01] LABS: ARTERIAL BLD GAS O2 SATURATION 97.3 % (90-98.9); ARTERIAL BLOOD GAS BASE EXCESS 2.7 meq/l (-2-2); ARTERIAL BLOOD GAS HCO3 26.1 meq/L (22-26); ARTERIAL BLOOD GAS pH 7.46 (7.35-7.45)
[2017-05-30 01:04] LABS: ALLENS TEST POSITIVE; ART PUNCT SITE RIGHT BRACHIAL; LPM/O2% 4 LPM; PT. ON O2? YES; TYPE OF O2 NASAL O2
--- NOTE | 2017-05-30 01:11 | CONSULT ---
Consult - text type - Consultation Consultation Note: PULM/CCM Pt seen and examined in ICU Reason for ICU admission: ? hypoxia CC: confusion HPI: Briefly Ms Mccormick is a 76 yo primarily slovenian speaking woman with hx of Alzheimers dementia, CKD and hypertension who was admitted ~ 48hrs ago with subjective fever and confusion. She was hemodynamically stable and without localizing source of infection (cxr unremarkable, UA clean). She underwent CT head which was negative and was admitted to the floor. Tonight a MEDICAL TRANSCRIPTION SUPERVISOR was called for hypoxia. She was found to have Spo2 of 81% on RA. Placed on NRB and then dropped down to 4LNC with abg on NC 7.46/37/135 (slightly elevated A-a of 68 by my calculation). She had a fever (oral) to 103. Plan made to transfer to ICU for monitoring. Abx (vanco and P/T) were ordered and repeat UA. Started on empiric anticoagulation for presumed Pulm embolism, LE duplex ordered as well. Had been seen by Neuro, GI, and Renal while on floor. On arrival in ICU pt awake, mioderately confused, hemodynamically stable, Spo2 97% on NC. 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 Other Cardio/Vascular HTN Gastrointestinal Other Past Surgical History Past Surgical History Cholecystectomy (Laparoscopic),Tubal Ligation ( possible per the family) Smoking History Smoking history Never smoked Aproximately how many 0 cigarettes per day Alcohol/Substance Use Hx Alcohol Use No Social History Usual Living Arrangement Alone ADL Support Services History of Recent Travel No Ambulatory Orders Ergocalciferol (Vitamin D2) [Vitamin D] 50,000 unit PO WEEKLY 01/08/15 Gabapentin 300 mg PO ASDIR 01/08/15 Insulin Glargine,Hum.rec.anlog [Lantus Solostar PEN (NF)] 20 units SQ HS Insulin NPL/Insulin Lispro [Humalog Mix 50-50 Kwikpen] 30 unit SQ BID 01/08/15 Metoprolol Tartrate [Lopressor -] 100 mg PO BID 01/08/15 Acetaminophen [Tylenol] 500 mg PO QID PRN 05/28/17 Aspirin [ASA -] 81 mg PO DAILY 05/28/17 Fluoxetine HCl 20 mg PO DAILY 05/28/17 Hydrocodone/Acetaminophen [Lorcet 5-325 mg Tablet] 1 each PO DAILY PRN 05/28/17 Memantine HCl [Namenda Xr] 7 mg PO DAILY 05/28/17 Nifedipine [Procardia Xl] 30 mg PO DAILY 05/28/17 Olmesartan Medoxomil 20 mg PO DAILY 05/28/17 Rosuvastatin [Crestor -] 20 mg PO HS 05/28/17 Tramadol HCl 50 mg PO TID 05/28/17 CBC, BMP 05/29/17 20:25 05/29/17 20:25 INR, PTT INR 1.11 (0.82-1.09) 05/28/17 18:20 Troponin, BNP 05/29/17 05/29/17 08:30 08:35 Troponin I 0.02 Cancelled Vital Signs Temp 103.1 F H 05/30/17 00:21 Pulse 95 H 05/30/17 00:21 Resp 22 05/30/17 00:21 BP 150/77 05/30/17 00:21 Pulse Ox 96 05/29/17 21:00 Intake & Output 05/29/17 05/29/17 05/30/17 11:59 23:59 11:59 Intake Total 126 325 Balance 126 325 Weight 119.249 kg Intake: IV 126 75 Normal Saline - 1,000 ml 126 @ 42 mls/hr IV ASDIR GORGE Rx#:[id number] 1/2 Normal Saline 1,000 75 ml @ 75 mls/hr IV ASDIR GORGE Rx#:[id number] Oral 250 Other: Voiding Method Toilet Toilet # Unmeasured Voids Void 1 Bowel Movement No Height 5 ft 7 in Body Mass Index (BMI) 41.1 Weight Measurement Method Standing Scale ROS: unable confused PE: Gen: eld woman, confused, trying to exit bed, not distressed HEENT: PERRL, no nuchal rigidity, EOMI, atraumatic PULM: diminished bases, no accessory muscle, no wheezes CV: RRR, no m/r/g appreciated ABD: obese, soft EXT: trace edema NEURO: non-focal exam, ELKINS X 4 with equal strength, no facial asymetery, No rash or breakdown EKG with LAD and poor R wave progression but no ischemic changes CXR: without focal infiltrate A/ 76 y/o woman with hx of dementia, HTN, DM p/w confusion up from baseline now with fever and intermittent hypoxia P/ -hypoxia w/u --> LE duplex, TTE - started on empirc anti-coagulation with hep gtt, holding off on CTA given rising Cr -Fio2 as needed for Spo2 93% -empiric abx for fever, covering lung/urine for now -neurology felt meningitis low likelihood and no meningeal signs but if no source found on repeat eval would tap and cover CLINIC DIRECTOR -MRI when stable -cont anti-HTN and BB -closely follow UOP and Cr, Nephrology following -ICU monitoring Mitch Torres ACNP [id number] -
[2017-05-30 02:32] LABS: BASOPHIL 0.5 % (0-2.0); EOSINOPHIL 0.1 % (0-4.5); MCH 28.8 pg (25.7-33.7); MCHC 33.4 g/dl (32.0-36.0); MEAN CELL VOLUME 86.3 fl (80-96); MEAN PLT VOLUME 9.8 fl (7.5-11.1); PLATELET COUNT 146 K/MM3 (134-434); RDW 15.6 % (11.6-15.6); WHITE BLOOD COUNT 4.6 K/mm3 (4.0-10.0)
[2017-05-30 02:34] LABS: URINE APPEARANCE SLCLOUDY; URINE BILIRUBIN NEGATIVE (NEGATIVE); URINE BLOOD 1+ (NEGATIVE); URINE COLOR YELLOW; URINE GLUCOSE (UA) NEGATIVE (NEGATIVE); URINE KETONE NEGATIVE (NEGATIVE); URINE LEUK ESTERASE NEGATIVE (NEGATIVE); URINE NITRITE NEGATIVE (NEGATIVE); URINE UROBILINOGEN NEGATIVE mg/dL (0.2-1.0)
[2017-05-30 02:44] LABS: URINE PROTEIN 2+ (NEGATIVE)
[2017-05-30 02:48] LABS: URINE BACTERIA RARE /hpf (NONE SEEN); URINE HYALINE CAST 1 /lpf; URINE MUCUS RARE; URINE RBC 1 /hpf (0-3); URINE WBC 1 /hpf (3-5)
[2017-05-30] MEDS ORDERED: PROCHLORPERAZINE MALEATE 5 MG TABLET PO PRN (03:00)
[2017-05-30] MEDS ORDERED: METOPROLOL TARTRATE 5 MG/5 ML VIAL IVPB PRN (03:00)
[2017-05-30] MEDS ORDERED: ONDANSETRON 4 MG/2 ML VIAL IVPB PRN (03:00)
[2017-05-30 03:04] LABS: ALBUMIN 3.3 g/dl (3.4-5.0); ALK PHOS 75 U/L (45-117); ANION GAP 10 (8-16); BILIRUBIN,TOTAL 0.4 mg/dL (0.2-1.0); CALCIUM 8.3 mg/dL (8.5-10.1); CO2 28 mmol/L (21-32); CREATININE 1.9 mg/dL (0.55-1.02); GLUCOSE,RANDOM 191 mg/dL (74-106); SGOT/AST 27 U/L (15-37); SGPT/ALT 27 U/L (12-78); TOT PROT 6.7 g/dl (6.4-8.2)
[2017-05-30] MEDS: HEPARIN - 25,000 UNIT in SODIUM CHLORIDE 495 ML IV SCH (04:00)
[2017-05-30] MEDS: INSULIN SLIDING SCALE (NOVOLOG) 1 VIAL SQ SCH ×4 (06:42→22:07)
[2017-05-30] MEDS: ACETAMINOPHEN 325 MG TABLET (FP) PO PRN ×2 (06:43→22:23)
[2017-05-30 07:00] LABS: MCH 28.4 pg (25.7-33.7); MCHC 32.7 g/dl (32.0-36.0); MEAN CELL VOLUME 86.8 fl (80-96); MEAN PLT VOLUME 9.9 fl (7.5-11.1); PLATELET COUNT 135 K/MM3 (134-434); RDW 15.7 % (11.6-15.6); WHITE BLOOD COUNT 6.2 K/mm3 (4.0-10.0)
[2017-05-30 07:25] LABS: ALBUMIN 3.2 g/dl (3.4-5.0); ANION GAP 10 (8-16); CALCIUM 8.7 mg/dL (8.5-10.1); CO2 30 mmol/L (21-32); GLUCOSE,RANDOM 221 mg/dL (74-106); SGPT/ALT 26 U/L (12-78)
--- NOTE | 2017-05-30 07:25 | PN ---
Progress Note (short form) - Note Progress Note: PATIENT SEEN AGAIN BECAUSE OF FEVER 103.7, I EXAMINED THE PATIENT WITH GI SPECIALIST DR PEREZ, FAMILY BEDSIDE. PHYSICAL EXAM: IN CHAIR SITTIN GUP ON NORMAL ROOM AIR NO APPARENT DISTRESS AWAKE, ALERT WITH SLOW VERBAL RESPONSES WHICH FAMILY SAYS IS BASELINE HEENT: NC, PERRLA, NECK IS SUPPLE, ABLE TO MOVE HER MOUTH NO DROOP CHEST: RR, S1S2, NO LOUD MURMURS, CLEAR LUNG FIELD ABD: SOFT OBESE, NOT MILD TENDERNESS EPIGASTRIC AREA NO MASSES EXT: NO EDEMA, POOR ROM UNSTEADY GAIT USING FAMILY TO BALANCE NEURO: NO DEFECITS, NO FACIAL DROOP PSYCH: MOOD IS GOOD, NO DEPRESSION A/P: AFTER DISCUSSING WITH FAMILY AND HER PMD DR ANNABEL ARMSTRONG ON THE PHONE, DR PEREZ AND I HAVE ORDERED AN INFECTIOUS DISEASE CONSULT, GORE CULTURE WITH BLOOD AND URINE CULTURE, CT SCAN CHEST , ABD , PELVIS, LUMBAR SPINE TO R/O AN ACUTE INFECTIOUS PROCESS. NEUROLOGY HAS SEEN PATIENT SINCE I LAST SAW PATIENT THIS AM. PATIENT REFUSES MRI BECAUSE OF OBESE BODY HABITAT AND PHOBIA OF CLOSED MRI. [facility] DOES NOT HAVE A CLOSED MRI, HOWEVER I CAN SPEAK TO ADMINISTRATION TO TRANSFER OUTPATIENT FOR OPEN MRI WHEN MEDICALLY STABLE. FAMILY BEDSIDE, I DISCUSSED WITH THEM OUR PLAN AND THEY ARE IN AGREEMENT. I WILL TRANSFER THE PATIENT TO DR TOM HOLLAND AND I HAVE SIGNED OUT TO HIM. IVF, ZOFRAN IV, LIQUID DIET, TYLENOL PRN, FALL PRECAUTIONS, NEURO CHECKS Q4HRS, CT HEAD NO ACUTE BLEED. Problem List - Problems (1) Altered mental status Code(s): R41.82 - ALTERED MENTAL STATUS, UNSPECIFIED Qualifiers: Altered mental status type: unspecified Qualified Code(s): R41.82 - Altered mental status, unspecified (2) TIA (transient ischemic attack) Code(s): G45.9 - TRANSIENT CEREBRAL ISCHEMIC ATTACK, UNSPECIFIED Qualifiers: Transient cerebral ischemia type: unspecified Qualified Code(s): G45.9 - Transient cerebral ischemic attack, unspecified (3) Weakness Code(s): R53.1 - WEAKNESS (4) Vomiting Code(s): R11.10 - VOMITING, UNSPECIFIED Qualifiers: Vomiting type: unspecified
[2017-05-30 07:30] LABS: ALK PHOS 73 U/L (45-117); BILIRUBIN,TOTAL 0.6 mg/dL (0.2-1.0); SGOT/AST 27 U/L (15-37); TOT PROT 6.5 g/dl (6.4-8.2)
--- NOTE | 2017-05-30 07:50 | PN ---
Progress Note (short form) - Note Progress Note: ID Full note dictated Brought with altered mental status couph and found to desaturate Febrile 103 Poor historian No obvious distress cannot follow directions well Selected Entries 05/30/17 05/30/17 05/30/17 00:21 06:31 07:29 Temperature 103.1 F H Pulse Rate 95 H Respiratory 22 Rate Blood Pressure 150/77 Oxygen Flow 2 Rate Weight 271 lb Neck supple full ROM Lung Clear Cor S1 S2 Abd obese nontender Ext NO edema Microbiology Laboratory Tests 05/29/17 05/30/17 05/30/17 08:30 01:00 05:20 WBC Hgb Plt Count ESR 35 H ABG pH 7.46 H Oxygen Flow Rate 4 lpm BUN 29 H Creatinine 2.0 H Creat Clearance w eGFR 24.36 Total Bilirubin 0.6 D AST 27 ALT 26 Alkaline Phosphatase 73 05/30/17 05:20 WBC 6.2 D Hgb 12.5 Plt Count 135 ESR ABG pH Oxygen Flow Rate BUN Creatinine Creat Clearance w eGFR Total Bilirubin AST ALT Alkaline Phosphatase Assessment Sepsis syndrome altered mental status ? metabolic related No obvious source Possible Viral illness NO pneumonia or UTI seen initially ABd appears benign Plan Pending cultures adequate Vancomycin and Ceftriaxone Chari VACA
--- NOTE | 2017-05-30 08:15 | PN ---
Progress Note, Physician History of Present Illness: 76 yo primarily turkmen speaking woman with hx of Alzheimers dementia, CKD and hypertension who was admitted ~ 48hrs ago with subjective fever and confusion. She was hemodynamically stable and without localizing source of infection (cxr unremarkable, UA clean). She underwent CT head which was negative and was admitted to the floor. Tonight a FUR FLOOR WORKER was called for hypoxia. She was found to have Spo2 of 81% on RA. Placed on NRB and then dropped down to 4LNC with abg on NC 7.46/37/135 (slightly elevated A-a of 68 by my calculation). She had a fever (oral) to 103. Plan made to transfer to ICU for monitoring. Abx (vanco and P/T) were ordered and repeat UA. Started on empiric anticoagulation for presumed Pulm embolism, LE duplex ordered as well. Had been seen by Neuro, GI, and Renal while on floor. On arrival in ICU pt awake, mioderately confused, hemodynamically stable, Spo2 97% on NC. - Current Medication List Current Medications: Active Medications Acetaminophen (Tylenol -) 650 mg PO Q6H PRN PRN Reason: FEVER OR PAIN Last Admin: 05/30/17 06:43 Dose: 650 mg Aspirin (Ecotrin -) 81 mg PO DAILY GORGE Fluoxetine HCl (Prozac -) 10 mg PO DAILY [facility] Heparin Sodium (Porcine) (Heparin -) 1,000 unit IVPUSH PRN PRN PRN Reason: Heparin Heparin Sodium (Porcine) (Heparin -) 5,000 unit IVPUSH PRN PRN PRN Reason: Heparin Sodium Chloride (1/2 Normal Saline) 1,000 mls @ 75 mls/hr IV ASDIR GORGE Last Admin: 05/29/17 15:43 Dose: 75 mls/hr Heparin Sodium (Porcine) 25, (000 unit/ Sodium Chloride) 500 mls @ 20 mls/hr IV TITR GORGE; 1,000 UNIT/HR PRN Reason: Protocol Last Admin: 05/30/17 04:00 Dose: 20 mls/hr Vancomycin HCl (Vancomycin (Pre-Docked)) 250 mls @ 250 mls/hr IVPB ONCE ONE PRN Reason: Protocol Stop: 05/30/17 10:59 Ceftriaxone Sodium (Rocephin 2gm Ivpb (Pre-Docked)) 100 mls @ 200 mls/hr IVPB DAILY [facility] Insulin Aspart (Novolog Vial Sliding Scale -) 1 vial SQ ACHS GORGE PRN Reason: Protocol Last Admin: 05/30/17 06:42 Dose: Not Given Insulin Detemir (Levemir Vial) 20 units SQ HS [facility] Memantine (Namenda -) 5 mg PO BID [facility] Metoprolol Tartrate (Lopressor Injection -) 5 mg IVPB Q6H PRN PRN Reason: SBP >120 Nifedipine (Procardia Xl -) 30 mg PO DAILY [facility] Ondansetron HCl (Zofran Injection) 4 mg IVPB Q6H PRN PRN Reason: NAUSEA AND/OR VOMITING Prochlorperazine Maleate (Compazine -) 5 mg PO Q4H PRN PRN Reason: NAUSEA AND/OR VOMITING Rosuvastatin Calcium (Crestor -) 20 mg PO HS [facility]OR[facility] Valsartan (Diovan -) 80 mg PO DAILY [facility] - Objective Vital Signs: Vital Signs Temperature 102.4 F H 05/30/17 08:00 Pulse Rate 82 05/30/17 08:00 Respiratory Rate 20 05/30/17 08:00 Blood Pressure 103/64 05/30/17 08:00 O2 Sat by Pulse Oximetry (%) 96 05/29/17 21:00 Cardiovascular: Yes: Murmur, S1, S2 Respiratory: Yes: Regular, CTA Bilaterally, On Nasal O2 Gastrointestinal: Yes: Normal Bowel Sounds, Soft. No: Tenderness Edema: No Neurological: Yes: Alert, Oriented, Weakness Labs: CBC, BMP 05/30/17 05:20 05/30/17 05:20 INR, PTT INR 1.11 (0.82-1.09) 05/28/17 18:20 Problem List - Problems (1) Altered mental status Assessment/Plan: CT OF HEAD NEGATIVE MRI OF HEAD NEURO FOLLOW UP POSSIBLE--TOXIC-METABOLIC Code(s): R41.82 - ALTERED MENTAL STATUS, UNSPECIFIED Qualifiers: Altered mental status type: unspecified Qualified Code(s): R41.82 - Altered mental status, unspecified (2) Hypertension Assessment/Plan: MONITOR BP Code(s): I10 - ESSENTIAL (PRIMARY) HYPERTENSION Qualifiers: Hypertension type: essential hypertension Qualified Code(s): I10 - Essential (primary) hypertension (3) Fever Assessment/Plan: CULTURES DONE-NEG TO DATE D/W DR MIRAMONTES--ABX Code(s): R50.9 - FEVER, UNSPECIFIED (4) Hypoxemia Assessment/Plan: CT OF HEAD NEGATIVE DUPLEX NEGATIVE R/O PE HEPARIN DRIP PULM CONSULT Code(s): R09.02 - HYPOXEMIA
--- NOTE | 2017-05-30 09:57 | CONS ---
DATE OF CONSULTATION: DATE OF DICTATION: 05/30/2017 HISTORY OF PRESENT ILLNESS: This is a 76-year-old [place] female with history of Alzheimer's dementia, chronic kidney disease, and hypertension, apparently brought from home with altered mental status having been found by her family. The patient is alert, but a poor historian. When asked why she was brought to the hospital, she stated she had been coughing. In fact, she had fever documented here to 103 in addition to her apparent confusion. She was hemodynamically stable, but then desaturated to pO2 of 81% on room air. She was given a nonrebreather mask and treated for possible sepsis with vancomycin and piperacillin tazobactam. Currently, the patient denies any abdominal pain or urinary complaints. PAST MEDICAL HISTORY: As noted above. SOCIAL HISTORY: She is a nonsmoker, lives alone, a [place] immigrant living in the [facility] for many years. FAMILY HISTORY: Unobtainable. REVIEW OF SYSTEMS: Respiratory: Cough, shortness of breath. No obvious sputum production. Cardiac: No chest pain, palpitations, or syncope. Gastrointestinal: Denies abdominal pain, nausea, vomiting, or diarrhea. Genitourinary: No dysuria, hematuria, or urinary frequency. MEDICATIONS AT HOME: Include gabapentin, insulin, metoprolol, aspirin, hydrocodone, Namenda, nifedipine, Crestor, tramadol. PHYSICAL EXAMINATION: General: She was an alert female, confused, with difficulty following simple commands. Vital signs: The temperature was 103, pulse 95, blood pressure 150/77, respirations 20. Neck: Supple, no adenopathy. Lungs: Clear to percussion and auscultation. Heart: S1, S2, regular rhythm, no audible murmur. Abdomen: Obese, soft, positive bowel sounds, nontender. Extremities: No clubbing, cyanosis, or edema. LABORATORY DATA: BUN 29, creatinine 2.0. Liver enzymes within normal limits. The white count 6.2, hemoglobin 12.5, platelets 135. Sedimentation rate 35. Urinalysis 1 RBC, [address] of the chest unofficially report no acute infiltrates seen. CT of the head shows no evidence of intracranial pathology. ASSESSMENT: This 76-year-old female, a diabetic, with history of hypertension, was admitted with altered mental status, cough, and 103 fever. No obvious pneumonia seen or evidence for urinary tract infection. Abdominal examination benign. Thus, source of fever unclear. Given her history of recent cough, possibility of a viral illness is considered, particularly given her normal white count. For now, she needs to be treated empirically for possible sepsis. Will give vancomycin adjusted for creatinine clearance along with ceftriaxone 2 g pending cultures. Remote likelihood of influenza, but will order a viral culture of the sputum. Will order viral culture swab. Await final blood and urine cultures. No obvious evidence of meningitis based on clinical examination. RANDY BEATTY M.D. JARED/[id number]
[2017-05-30] MEDS ORDERED: VANCOMYCIN 1 GRAM (PRE-DOCKED) 250 ML IVPB ONE (10:00)
[2017-05-30] MEDS: CEFTRIAXONE 100 ML IVPB SCH (10:20)
[2017-05-30] MEDS ORDERED: PT OWN MED DRAWER 7, Y5N ONE ×2 (10:23→21:31)
[2017-05-30] MEDS: NIFEdipine E.R. 30 MG TABLET (FP) PO SCH (10:24)
[2017-05-30] MEDS: ASPIRIN COATED 81 MG TABLET.EC PO SCH (10:24)
[2017-05-30] MEDS: VALSARTAN 80 MG TABLET (UD) PO SCH (10:25)
[2017-05-30 11:31] LABS: PLATELET ESTIMATE SLT DECREASED (NORMAL)
--- NOTE | 2017-05-30 11:45 | PN ---
GI Progress Note Subjective: Had CT scan chest performed yesterday however could not perform MRI brain / CT scan abd/pelvis and L-Spine. Continued fevers/confusions. No further vomiting - Objective Vital Signs: Vital Signs Temperature 102.5 F H 05/30/17 10:00 Pulse Rate 86 05/30/17 11:19 Respiratory Rate 24 05/30/17 10:00 Blood Pressure 127/75 05/30/17 10:00 O2 Sat by Pulse Oximetry (%) 100 05/30/17 11:19 Constitutional: Anxious Eyes: No: Sclera Icterus Cardiovascular: Yes: Regular Rate and Rhythm Respiratory: Yes: Diminished (at bases, however poor inspiratory effort) Gastrointestinal Inspection: No: Distention ...Auscultate: Yes: Normoactive Bowel Sounds ...Palpate: No: Tenderness (No grimacing upon palpation) ...Percussion: No: Tympanitic Edema: No Neurological: Yes: Other (awake) Labs: CBC, BMP 05/30/17 05:20 05/30/17 05:20 INR, PTT INR 1.11 (0.82-1.09) 05/28/17 18:20 Problem List - Problems (1) Vomiting Assessment/Plan: No further vomiting In review of [facility], her vomiting occurred when her SBP exceeded 200. Suspect that may have precipitated the event No focal GI findings to explain current clinical condition. Will likely not tolerate CT scan abd/pelvis. Can have bedside ABD US performed. Still likely needs complaints of back pain evaluated. ? infectious source. Discussed with resident Fever w/u per ID / Primary team Code(s): R11.10 - VOMITING, UNSPECIFIED Qualifiers: Vomiting type: unspecified
[2017-05-30] MEDS: MEMANTINE HCL 5 MG TABLET (UD) PO SCH ×2 (11:46→22:08)
[2017-05-30] MEDS: FLUoxetine HCL 10 MG CAPSULE (FP) PO SCH (11:46)
[2017-05-30] MEDS ORDERED: ALBUTEROL SO4 0.083% IH SOL 2.5 MG/3 ML VIAL.NEB. NEB PRN (13:28)
[2017-05-30] MEDS: SODIUM CHLORIDE 0.45% 1,000 ML IV SCH ×2 (13:31→15:03)
--- NOTE | 2017-05-30 13:49 | PN ---
Physical Exam: SUBJECTIVE: Patient seen and examined at bed side this morning. Complaints of back pain but denies chest pain, sob, cough, palpitation, abdominal pain, nausea or vomiting. Yesterday there were two rapid responses called. The first one was for Hypertensive urgency and the second one was for desaturation to 81 %, hence transferred to the ICU for further monitoring. Patient's family members at bed side (HCP-daughter Alie Moore [phone]); Daughter Cornelius and Son Dinesh Moore). They mentioned that patient lives alone at home, has 8 hours home health aid, who mentioned that she had fever since 3 days ago, was found laying on the floor by her aid, hence brought here to the ED. Daughter mentions that since few years, patient has been gaining a lot of weight, has difficulty walking due to her back but is able to walk independently with the help of a cane, also has a walker. Patient has been complaining of severe back pain for which an MRI was done [address] Anum Mendoza's office, (they don't know the report yet) will try to get records from his office. Patient has decreased socializing since few years, sleeps in the recliner and is laying most of the time, doesn't get up although she can walk. Quit smoking 35 years ago, was an occasional smoker, was diagnosed to have Asthma, uses inhalers PRN at home, hasn't had acute exacerbation of asthma for years, as per the family. Family also mentions that she is claustrophobic and will require sedatives for an MRI. HCP gave verbal consent of MRI of Lumbar and spine, will get written consent and attach it in the chart. OBJECTIVE: Vital Signs Period Temp Pulse Resp BP Sys/Francis Pulse Ox Last 24 Hr 99.1 F-103.7 F 82-99 20-26 103-157/64-89 95-100 GENERAL: The patient is awake, alert, and fully oriented, in no acute distress. HEAD: Normal with no signs of trauma. EYES: PERRL, extraocular movements intact, Mild Pallor but no icterus. ENT: Ears normal, moist mucous membranes. NECK: Trachea midline, full range of motion, supple, no JVD. LUNGS: B/L scattered wheezing, Breath sounds equal, no crackles, no accessory muscle use. HEART: Regular rate and rhythm, S1, S2 without murmur, rub or gallop. ABDOMEN: Soft, nontender, nondistended, normoactive bowel sounds, no guarding, no rebound, no hepatosplenomegaly, no masses. EXTREMITIES: 2+ pulses, warm, well-perfused, no edema. BACK: Tenderness in the lumbar area, no bruises, no erythema. NEUROLOGICAL: No facial droop, Cranial nerves II through XII grossly intact. Power 5/5 in all extremities, reflexes intact. Normal speech, gait not observed. PSYCH: Normal mood, normal affect. SKIN: Warm, dry, normal turgor, no rashes or lesions noted Laboratory Results - last 24 hr 05/29/17 05/29/17 05/29/17 08:30 16:45 19:19 WBC 5.3 RBC 4.80 Hgb 13.6 Hct 41.4 MCV 86.2 MCH 28.3 MCHC 32.9 RDW 15.1 Plt Count 159 MPV 9.7 Neutrophils % Lymphocytes % Monocytes % Eosinophils % Basophils % Differential Comment Platelet Estimate ESR 35 H PTT (Actin FS) Anticoagulation Therapy Puncture Site Patient Temperature ABG pH ABG pCO2 at Pt Temp ABG pO2 at Pt Temp ABG HCO3 ABG O2 Sat (Measured) ABG O2 Content ABG Base Excess Juanjo Test O2 Delivery Device Oxygen Flow Rate Vent Mode Vent Rate Mechanical Rate PEEP Pressure Support Vent Sodium Potassium Chloride Carbon Dioxide Anion Gap BUN Creatinine Creat Clearance w eGFR POC Glucometer 242 Random Glucose Lactic Acid 1.4 Calcium Total Bilirubin AST ALT Alkaline Phosphatase B-Natriuretic Peptide Total Protein Albumin Urine Color Urine Appearance Urine pH Ur Specific [place] Urine Protein Urine Glucose (UA) Urine Ketones Urine Blood Urine Nitrite Urine Bilirubin Urine Urobilinogen Ur Leukocyte Esterase Urine RBC Urine WBC Ur Epithelial Cells Urine Bacteria Hyaline Casts Urine Mucus U Random Total Protein Ur Random Sodium Ur Random Potassium Ur Random Chloride Urine Creatinine Protein/Creatinin Ratio 05/29/17 05/29/17 05/29/17 20:25 20:25 22:26 WBC 5.7 RBC 4.73 Hgb 13.7 Hct 41.4 MCV 87.6 MCH 28.9 MCHC 33.0 RDW 15.3 Plt Count 157 MPV 10.7 D Neutrophils % 65.4 Lymphocytes % 21.1 D Monocytes % 12.9 H Eosinophils % 0.1 Basophils % 0.5 Differential Comment Platelet Estimate ESR PTT (Actin FS) Anticoagulation Therapy Puncture Site Patient Temperature ABG pH ABG pCO2 at Pt Temp ABG pO2 at Pt Temp ABG HCO3 ABG O2 Sat (Measured) ABG O2 Content ABG Base Excess Juanjo Test O2 Delivery Device Oxygen Flow Rate Vent Mode Vent Rate Mechanical Rate PEEP Pressure Support Vent Sodium 132 L Potassium 3.5 Chloride 95 L Carbon Dioxide 28 Anion Gap 9 BUN 26 H D Creatinine 1.9 H Creat Clearance w eGFR 25.84 POC Glucometer 206 Random Glucose 240 H Lactic Acid Calcium 9.1 Total Bilirubin 0.5 AST 28 D ALT 27 Alkaline Phosphatase 72 B-Natriuretic Peptide Total Protein 7.2 Albumin 3.5 Urine Color Urine Appearance Urine pH Ur Specific [place] Urine Protein Urine Glucose (UA) Urine Ketones Urine Blood Urine Nitrite Urine Bilirubin Urine Urobilinogen Ur Leukocyte Esterase Urine RBC Urine WBC Ur Epithelial Cells Urine Bacteria Hyaline Casts Urine Mucus U Random Total Protein Ur Random Sodium Ur Random Potassium Ur Random Chloride Urine Creatinine Protein/Creatinin Ratio 05/30/17 05/30/17 05/30/17 00:14 00:22 01:00 WBC RBC Hgb Hct MCV MCH MCHC RDW Plt Count MPV Neutrophils % Lymphocytes % Monocytes % Eosinophils % Basophils % Differential Comment Platelet Estimate ESR PTT (Actin FS) Anticoagulation Therapy Y Puncture Site Right radial Right brachial Patient Temperature 103 ABG pH 7.37 7.46 H ABG pCO2 at Pt Temp 52.6 H 37.6 D ABG pO2 at Pt Temp 24.3 L* 135.0 H D ABG HCO3 28.4 H 26.1 H ABG O2 Sat (Measured) 28.7 L* 97.3 ABG O2 Content 5.1 L* 17.8 ABG Base Excess 3.5 H 2.7 H Juanjo Test Positive Positive O2 Delivery Device Nonrebreather Nasal o2 Oxygen Flow Rate 100 4 lpm Vent Mode Y Vent Rate Y Mechanical Rate Y PEEP 0.0 0.0 Pressure Support Vent Y Sodium Potassium Chloride Carbon Dioxide Anion Gap BUN Creatinine Creat Clearance w eGFR POC Glucometer 178 Random Glucose Lactic Acid Calcium Total Bilirubin AST ALT Alkaline Phosphatase B-Natriuretic Peptide Total Protein Albumin Urine Color Urine Appearance Urine pH Ur Specific [place] Urine Protein Urine Glucose (UA) Urine Ketones Urine Blood Urine Nitrite Urine Bilirubin Urine Urobilinogen Ur Leukocyte Esterase Urine RBC Urine WBC Ur Epithelial Cells Urine Bacteria Hyaline Casts Urine Mucus U Random Total Protein Ur Random Sodium Ur Random Potassium Ur Random Chloride Urine Creatinine Protein/Creatinin Ratio 05/30/17 05/30/17 05/30/17 02:00 02:00 02:00 WBC 4.6 RBC 4.32 Hgb 12.5 Hct 37.3 MCV 86.3 MCH 28.8 MCHC 33.4 RDW 15.6 Plt Count 146 MPV 9.8 Neutrophils % 65.0 Lymphocytes % 19.4 Monocytes % 15.0 H Eosinophils % 0.1 Basophils % 0.5 Differential Comment Platelet Estimate ESR PTT (Actin FS) Anticoagulation Therapy Puncture Site Patient Temperature ABG pH ABG pCO2 at Pt Temp ABG pO2 at Pt Temp ABG HCO3 ABG O2 Sat (Measured) ABG O2 Content ABG Base Excess Juanjo Test O2 Delivery Device Oxygen Flow Rate Vent Mode Vent Rate Mechanical Rate PEEP Pressure Support Vent Sodium 134 L Potassium 3.5 Chloride 96 L Carbon Dioxide 28 Anion Gap 10 BUN 27 H Creatinine 1.9 H Creat Clearance w eGFR 25.84 POC Glucometer Random Glucose 191 H D Lactic Acid Calcium 8.3 L Total Bilirubin 0.4 AST 27 ALT 27 Alkaline Phosphatase 75 B-Natriuretic Peptide Total Protein 6.7 Albumin 3.3 L Urine Color Urine Appearance Urine pH Ur Specific [place] Urine Protein 125 Urine Glucose (UA) Urine Ketones Urine Blood Urine Nitrite Urine Bilirubin Urine Urobilinogen Ur Leukocyte Esterase Urine RBC Urine WBC Ur Epithelial Cells Urine Bacteria Hyaline Casts Urine Mucus U Random Total Protein 125 H Ur Random Sodium 38 Ur Random Potassium 55.8 Ur Random Chloride 25 Urine Creatinine 239.0 Protein/Creatinin Ratio 0.52 05/30/17 05/30/17 05/30/17 02:00 02:00 05:20 WBC RBC Hgb Hct MCV MCH MCHC RDW Plt Count MPV Neutrophils % Lymphocytes % Monocytes % Eosinophils % Basophils % Differential Comment Platelet Estimate ESR PTT (Actin FS) 31.0 Anticoagulation Therapy Puncture Site Patient Temperature ABG pH ABG pCO2 at Pt Temp ABG pO2 at Pt Temp ABG HCO3 ABG O2 Sat (Measured) ABG O2 Content ABG Base Excess Juanjo Test O2 Delivery Device Oxygen Flow Rate Vent Mode Vent Rate Mechanical Rate PEEP Pressure Support Vent Sodium 135 L Potassium 4.0 Chloride 95 L Carbon Dioxide 30 Anion Gap 10 BUN 29 H Creatinine 2.0 H Creat Clearance w eGFR 24.36 POC Glucometer Random Glucose 221 H Lactic Acid Calcium 8.7 Total Bilirubin 0.6 D AST 27 ALT 26 Alkaline Phosphatase 73 B-Natriuretic Peptide 965.49 H Total Protein 6.5 Albumin 3.2 L Urine Color Yellow Urine Appearance Slcloudy Urine pH 5.0 D Ur Specific [place] 1.025 Urine Protein 2+ H Urine Glucose (UA) Negative Urine Ketones Negative Urine Blood 1+ H Urine Nitrite Negative Urine Bilirubin Negative Urine Urobilinogen Negative Ur Leukocyte Esterase Negative Urine RBC 1 Urine WBC 1 Ur Epithelial Cells Rare Urine Bacteria Rare Hyaline Casts 1 Urine Mucus Rare U Random Total Protein Ur Random Sodium Ur Random Potassium Ur Random Chloride Urine Creatinine Protein/Creatinin Ratio 05/30/17 05/30/17 05/30/17 05:20 05:20 05:20 WBC 6.2 D RBC 4.41 Hgb 12.5 Hct 38.3 MCV 86.8 MCH 28.4 MCHC 32.7 RDW 15.7 H Plt Count 135 MPV 9.9 Neutrophils % 64.0 Lymphocytes % 24.0 D Monocytes % 12.0 H Eosinophils % Basophils % Differential Comment Manual diff done Platelet Estimate Slt decreased ESR PTT (Actin FS) Anticoagulation Therapy Puncture Site Patient Temperature ABG pH ABG pCO2 at Pt Temp ABG pO2 at Pt Temp ABG HCO3 ABG O2 Sat (Measured) ABG O2 Content ABG Base Excess Juanjo Test O2 Delivery Device Oxygen Flow Rate Vent Mode Vent Rate Mechanical Rate PEEP Pressure Support Vent Sodium Potassium Chloride Carbon Dioxide Anion Gap BUN Creatinine Creat Clearance w eGFR POC Glucometer Random Glucose Lactic Acid 1.4 Calcium Total Bilirubin AST ALT Alkaline Phosphatase B-Natriuretic Peptide Cancelled Total Protein Albumin Urine Color Urine Appearance Urine pH Ur Specific [place] Urine Protein Urine Glucose (UA) Urine Ketones Urine Blood Urine Nitrite Urine Bilirubin Urine Urobilinogen Ur Leukocyte Esterase Urine RBC Urine WBC Ur Epithelial Cells Urine Bacteria Hyaline Casts Urine Mucus U Random Total Protein Ur Random Sodium Ur Random Potassium Ur Random Chloride Urine Creatinine Protein/Creatinin Ratio 05/30/17 05/30/17 05/30/17 06:38 10:29 11:10 WBC RBC Hgb Hct MCV MCH MCHC RDW Plt Count MPV Neutrophils % Lymphocytes % Monocytes % Eosinophils % Basophils % Differential Comment Platelet Estimate ESR PTT (Actin FS) 39.3 H Anticoagulation Therapy Puncture Site Patient Temperature ABG pH ABG pCO2 at Pt Temp ABG pO2 at Pt Temp ABG HCO3 ABG O2 Sat (Measured) ABG O2 Content ABG Base Excess Juanjo Test O2 Delivery Device Oxygen Flow Rate Vent Mode Vent Rate Mechanical Rate PEEP Pressure Support Vent Sodium Potassium Chloride Carbon Dioxide Anion Gap BUN Creatinine Creat Clearance w eGFR POC Glucometer 190.34938 228.54236 Random Glucose Lactic Acid Calcium Total Bilirubin AST ALT Alkaline Phosphatase B-Natriuretic Peptide Total Protein Albumin Urine Color Urine Appearance Urine pH Ur Specific [place] Urine Protein Urine Glucose (UA) Urine Ketones Urine Blood Urine Nitrite Urine Bilirubin Urine Urobilinogen Ur Leukocyte Esterase Urine RBC Urine WBC Ur Epithelial Cells Urine Bacteria Hyaline Casts Urine Mucus U Random Total Protein Ur Random Sodium Ur Random Potassium Ur Random Chloride Urine Creatinine Protein/Creatinin Ratio Active Medications Generic Name Dose Route Start Last Admin Trade Name Freq PRN Reason Stop Dose Admin Acetaminophen 650 mg 05/30/17 03:00 05/30/17 06:43 Tylenol - PO 650 mg Q6H PRN Administration FEVER OR PAIN Albuterol Sulfate 1 amp 05/30/17 13:28 Ventolin 0.083% Nebulizer Soln - NEB Q4H PRN SHORT OF BREATH/WHEEZING Aspirin 81 mg 05/30/17 10:00 05/30/17 10:24 Ecotrin - PO 81 mg DAILY GORGE Administration Fluoxetine HCl 10 mg 05/30/17 10:00 05/30/17 11:46 Prozac - PO 10 mg DAILY GORGE Administration Heparin Sodium (Porcine) 1,000 unit 05/30/17 00:41 Heparin - IVPUSH PRN PRN Heparin Heparin Sodium (Porcine) 5,000 unit 05/30/17 00:41 05/30/17 11:00 Heparin - IVPUSH 5,000 unit PRN PRN Administration Heparin Sodium Chloride 1,000 mls @ 75 mls/hr 05/29/17 15:03 05/30/17 13:31 1/2 Normal Saline IV 75 mls/hr ASDIR GORGE Administration Heparin Sodium (Porcine) 25, 500 mls @ 20 mls/hr 05/30/17 00:45 05/30/17 10:56 000 unit/ Sodium Chloride IV 1,150 unit/hr TITR GORGE Titration Protocol 1,000 UNIT/HR Ceftriaxone Sodium 100 mls @ 200 mls/hr 05/30/17 10:00 05/30/17 10:20 Rocephin 2gm Ivpb (Pre-Docked) IVPB 200 mls/hr DAILY GORGE Administration Insulin Aspart 1 vial 05/30/17 07:00 05/30/17 11:12 Novolog Vial Sliding Scale - SQ 2 units ACHS GORGE Administration Protocol Insulin Detemir 20 units 05/30/17 22:00 Levemir Vial SQ HS GORGE Memantine 5 mg 05/30/17 10:00 05/30/17 11:46 Namenda - PO 5 mg BID GORGE Administration Metoprolol Tartrate 5 mg 05/30/17 03:00 Lopressor Injection - IVPB Q6H PRN SBP >120 Nifedipine 30 mg 05/30/17 10:00 05/30/17 10:24 Procardia Xl - PO 30 mg DAILY GORGE Administration Ondansetron HCl 4 mg 05/30/17 03:00 Zofran Injection IVPB Q6H PRN NAUSEA AND/OR VOMITING Prochlorperazine Maleate 5 mg 05/30/17 03:00 Compazine - PO Q4H PRN NAUSEA AND/OR VOMITING Rosuvastatin Calcium 20 mg 05/30/17 22:00 Crestor - PO HS GORGE Valsartan 80 mg 05/30/17 10:00 05/30/17 10:25 Diovan - PO 80 mg DAILY GORGE Administration ASSESSMENT/PLAN: Patient is a 76 yo primarily german speaking woman with significant past medical hx of Alzheimers dementia, CKD and hypertension admitted for evaluation of altered mental status and fever, transferred to the ICU for evaluation of change in AMS and desaturation. Neurology Altered Mental Status: Improved as compared to this morning, AAO x 3 Now at baseline as per the family CT head negative MRI of head couldn't be done as patient was agitated and had to be returned from the radiology dept. Alzheimers COntinue Memantine 5mg PO BID Sepsis unknown etiology Fever + Tmax 103.2, UA is normal, unlikely due to UTI, less likely due to PNA Highly suspicious of spinal abscess, MRI of thoracic and lumbar spine to be ordered, consent from family attached in the chart. Less likely abdominal source since abdominal exam is benign. R.O any abd source, abdominal USG ordered. Chest CT showed B/L Atelectasis and less likely a small infiltrate. IV Fluids IV Ceftriaxone 2gm Daily and one dose of Vancomycin given today Blood culture/urine culture pending MRI of lumbar spine without contrast was done on 05/03/[address] 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 Annular disc bulging L3-L4 with facet hypertrophy and mild central spinal stenosis. Central disc herniation L4-L5 with facet hypertrophy with moerate to severe central spinal stenosis. Right lateral disc herniation also felt present at this level. Suspicious for Pulmonary Embolism Was found to be hypoxic, sob, tachycardic yesterday, CTA couldn't be done due to CKD, hence empirically treated with Heparin Drip Duplex of lower ext-negative. Cardiology Echo done, report pending Hypertensive urgency, now hypertension-Controlled Continue IV Metoprolol 5 mg IVPG Q6H PRN; Valsartain 80mg PO Daily, Nifedipine 30mg Daily CAD/Hyperlipidemia Continue Rosuvastatin 20mg PO HS; Aspirin 81mg PO daily Endocrinology HbA1c 8.5 % Continue Insulin sliding scale Finger stick glucose monitoring Watch for Hypoglycemic episodes FEN Gentle hydration Electrolytes to be repeated tomorrow Diabetic diet Prophylaxis For DVT: Already on heparin Drip For GI: On protonix 40mg Daily Code Status: Full Code Home Medication: Confirmed with pharmacy and updated in the chart. Illness, Investigation and Plan of care explained to the patient and her family. They verbalized understanding. Case seen and discussed with Dr. Grant. Visit type - Emergency Visit Emergency Visit: Yes ED Registration Date: 05/28/17 Care time: The patient presented to the Emergency Department on the above date and was hospitalized for further evaluation of their emergent condition. - New Patient This patient is new to me today: Yes Date on this admission: 05/30/17 - Critical Care Critical Care patient: Yes Total Critical Care Time (in minutes): 35 Critical Care Statement: The care of this patient involved high complexity decision making to prevent further life threatening deterioration of the patient 's condition and/or to evalute & treat vital organ system(s) failure or risk of failure.
--- NOTE | 2017-05-30 14:04 | PN ---
Teaching Attending Note Name of Resident: Yenifer Bhakta ATTENDING PHYSICIAN STATEMENT I saw and evaluated the patient. I reviewed the resident's note and discussed the case with the resident. I agree with the resident's findings and plan as documented. SUBJECTIVE: Patient seen and examined in the ICU. Awake and interactive, but very poor historian. She denies CP or SOB. Still febrile. Cultures are pending. Noted on broad spectrum ABX per ID. Intake & Output 05/27/17 05/28/17 05/29/17 05/30/17 23:59 23:59 23:59 23:59 Intake Total 451 1165 Output Total 500 Balance 451 665 Weight 252 lb 262 lb 14.4 oz 271 lb Last Vital Signs Temp Pulse Resp BP Pulse Ox 101.8 F H 83 26 H 139/72 100 05/30/17 14:00 05/30/17 14:00 05/30/17 14:00 05/30/17 14:00 05/30/17 11:19 Active Medications Acetaminophen (Tylenol -) 650 mg PO Q6H PRN PRN Reason: FEVER OR PAIN Last Admin: 05/30/17 06:43 Dose: 650 mg Albuterol Sulfate (Ventolin 0.083% Nebulizer Soln -) 1 amp NEB Q4H PRN PRN Reason: SHORT OF BREATH/WHEEZING Aspirin (Ecotrin -) 81 mg PO DAILY [facility] Last Admin: 05/30/17 10:24 Dose: 81 mg Fluoxetine HCl (Prozac -) 10 mg PO DAILY [facility] Last Admin: 05/30/17 11:46 Dose: 10 mg Heparin Sodium (Porcine) (Heparin -) 1,000 unit IVPUSH PRN PRN PRN Reason: Heparin Heparin Sodium (Porcine) (Heparin -) 5,000 unit IVPUSH PRN PRN PRN Reason: Heparin Last Admin: 05/30/17 11:00 Dose: 5,000 unit Sodium Chloride (1/2 Normal Saline) 1,000 mls @ 75 mls/hr IV ASDIR [facility] Last Admin: 05/30/17 13:31 Dose: 75 mls/hr Heparin Sodium (Porcine) 25, (000 unit/ Sodium Chloride) 500 mls @ 20 mls/hr IV TITR [facility]; 1,000 UNIT/HR PRN Reason: Protocol Last Titration: 05/30/17 10:56 Dose: 1,150 unit/hr Ceftriaxone Sodium (Rocephin 2gm Ivpb (Pre-Docked)) 100 mls @ 200 mls/hr IVPB DAILY [facility] Last Admin: 05/30/17 10:20 Dose: 200 mls/hr Insulin Aspart (Novolog Vial Sliding Scale -) 1 vial SQ ACHS [facility] PRN Reason: Protocol Last Admin: 05/30/17 11:12 Dose: 2 units Insulin Detemir (Levemir Vial) 20 units SQ HS [facility] Memantine (Namenda -) 5 mg PO BID [facility] Last Admin: 05/30/17 11:46 Dose: 5 mg Metoprolol Tartrate (Lopressor Injection -) 5 mg IVPB Q6H PRN PRN Reason: SBP >120 Nifedipine (Procardia Xl -) 30 mg PO DAILY [facility] Last Admin: 05/30/17 10:24 Dose: 30 mg Ondansetron HCl (Zofran Injection) 4 mg IVPB Q6H PRN PRN Reason: NAUSEA AND/OR VOMITING Prochlorperazine Maleate (Compazine -) 5 mg PO Q4H PRN PRN Reason: NAUSEA AND/OR VOMITING Rosuvastatin Calcium (Crestor -) 20 mg PO HS [facility] Valsartan (Diovan -) 80 mg PO DAILY [facility] Last Admin: 05/30/17 10:25 Dose: 80 mg Gen: elderly woman, mildly confused, NAD HEENT: (-) nuchal rigidity, EOMI, atraumatic PULM: diminished bases, no accessory muscle, no wheezes CV: S1S2 regular, (-) ESM ABD: obese, soft, (+) BS EXT: trace edema NEURO: non-focal exam SKIN: No rash or breakdown Laboratory Results - last 24 hr 05/29/17 05/29/17 05/29/17 16:45 19:19 20:25 WBC 5.7 RBC 4.73 Hgb 13.7 Hct 41.4 MCV 87.6 MCH 28.9 MCHC 33.0 RDW 15.3 Plt Count 157 MPV 10.7 D Neutrophils % 65.4 Lymphocytes % 21.1 D Monocytes % 12.9 H Eosinophils % 0.1 Basophils % 0.5 Differential Comment Platelet Estimate PTT (Actin FS) Anticoagulation Therapy Puncture Site Patient Temperature ABG pH ABG pCO2 at Pt Temp ABG pO2 at Pt Temp ABG HCO3 ABG O2 Sat (Measured) ABG O2 Content ABG Base Excess Juanjo Test O2 Delivery Device Oxygen Flow Rate Vent Mode Vent Rate Mechanical Rate PEEP Pressure Support Vent Sodium Potassium Chloride Carbon Dioxide Anion Gap BUN Creatinine Creat Clearance w eGFR POC Glucometer 242 Random Glucose Lactic Acid 1.4 Calcium Total Bilirubin AST ALT Alkaline Phosphatase B-Natriuretic Peptide Total Protein Albumin Urine Color Urine Appearance Urine pH Ur Specific [place] Urine Protein Urine Glucose (UA) Urine Ketones Urine Blood Urine Nitrite Urine Bilirubin Urine Urobilinogen Ur Leukocyte Esterase Urine RBC Urine WBC Ur Epithelial Cells Urine Bacteria Hyaline Casts Urine Mucus U Random Total Protein Ur Random Sodium Ur Random Potassium Ur Random Chloride Urine Creatinine Protein/Creatinin Ratio 05/29/17 05/29/17 05/30/17 20:25 22:26 00:14 WBC RBC Hgb Hct MCV MCH MCHC RDW Plt Count MPV Neutrophils % Lymphocytes % Monocytes % Eosinophils % Basophils % Differential Comment Platelet Estimate PTT (Actin FS) Anticoagulation Therapy Puncture Site Patient Temperature ABG pH ABG pCO2 at Pt Temp ABG pO2 at Pt Temp ABG HCO3 ABG O2 Sat (Measured) ABG O2 Content ABG Base Excess Juanjo Test O2 Delivery Device Oxygen Flow Rate Vent Mode Vent Rate Mechanical Rate PEEP Pressure Support Vent Sodium 132 L Potassium 3.5 Chloride 95 L Carbon Dioxide 28 Anion Gap 9 BUN 26 H D Creatinine 1.9 H Creat Clearance w eGFR 25.84 POC Glucometer 206 178 Random Glucose 240 H Lactic Acid Calcium 9.1 Total Bilirubin 0.5 AST 28 D ALT 27 Alkaline Phosphatase 72 B-Natriuretic Peptide Total Protein 7.2 Albumin 3.5 Urine Color Urine Appearance Urine pH Ur Specific [place] Urine Protein Urine Glucose (UA) Urine Ketones Urine Blood Urine Nitrite Urine Bilirubin Urine Urobilinogen Ur Leukocyte Esterase Urine RBC Urine WBC Ur Epithelial Cells Urine Bacteria Hyaline Casts Urine Mucus U Random Total Protein Ur Random Sodium Ur Random Potassium Ur Random Chloride Urine Creatinine Protein/Creatinin Ratio 05/30/17 05/30/17 05/30/17 00:22 01:00 02:00 WBC RBC Hgb Hct MCV MCH MCHC RDW Plt Count MPV Neutrophils % Lymphocytes % Monocytes % Eosinophils % Basophils % Differential Comment Platelet Estimate PTT (Actin FS) Anticoagulation Therapy Y Puncture Site Right radial Right brachial Patient Temperature 103 ABG pH 7.37 7.46 H ABG pCO2 at Pt Temp 52.6 H 37.6 D ABG pO2 at Pt Temp 24.3 L* 135.0 H D ABG HCO3 28.4 H 26.1 H ABG O2 Sat (Measured) 28.7 L* 97.3 ABG O2 Content 5.1 L* 17.8 ABG Base Excess 3.5 H 2.7 H Juanjo Test Positive Positive O2 Delivery Device Nonrebreather Nasal o2 Oxygen Flow Rate 100 4 lpm Vent Mode Y Vent Rate Y Mechanical Rate Y PEEP 0.0 0.0 Pressure Support Vent Y Sodium Potassium Chloride Carbon Dioxide Anion Gap BUN Creatinine Creat Clearance w eGFR POC Glucometer Random Glucose Lactic Acid Calcium Total Bilirubin AST ALT Alkaline Phosphatase B-Natriuretic Peptide Total Protein Albumin Urine Color Urine Appearance Urine pH Ur Specific [place] Urine Protein 125 Urine Glucose (UA) Urine Ketones Urine Blood Urine Nitrite Urine Bilirubin Urine Urobilinogen Ur Leukocyte Esterase Urine RBC Urine WBC Ur Epithelial Cells Urine Bacteria Hyaline Casts Urine Mucus U Random Total Protein 125 H Ur Random Sodium 38 Ur Random Potassium 55.8 Ur Random Chloride 25 Urine Creatinine 239.0 Protein/Creatinin Ratio 0.52 05/30/17 05/30/17 05/30/17 02:00 02:00 02:00 WBC 4.6 RBC 4.32 Hgb 12.5 Hct 37.3 MCV 86.3 MCH 28.8 MCHC 33.4 RDW 15.6 Plt Count 146 MPV 9.8 Neutrophils % 65.0 Lymphocytes % 19.4 Monocytes % 15.0 H Eosinophils % 0.1 Basophils % 0.5 Differential Comment Platelet Estimate PTT (Actin FS) Anticoagulation Therapy Puncture Site Patient Temperature ABG pH ABG pCO2 at Pt Temp ABG pO2 at Pt Temp ABG HCO3 ABG O2 Sat (Measured) ABG O2 Content ABG Base Excess Juanjo Test O2 Delivery Device Oxygen Flow Rate Vent Mode Vent Rate Mechanical Rate PEEP Pressure Support Vent Sodium 134 L Potassium 3.5 Chloride 96 L Carbon Dioxide 28 Anion Gap 10 BUN 27 H Creatinine 1.9 H Creat Clearance w eGFR 25.84 POC Glucometer Random Glucose 191 H D Lactic Acid Calcium 8.3 L Total Bilirubin 0.4 AST 27 ALT 27 Alkaline Phosphatase 75 B-Natriuretic Peptide Total Protein 6.7 Albumin 3.3 L Urine Color Yellow Urine Appearance Slcloudy Urine pH 5.0 D Ur Specific [place] 1.025 Urine Protein 2+ H Urine Glucose (UA) Negative Urine Ketones Negative Urine Blood 1+ H Urine Nitrite Negative Urine Bilirubin Negative Urine Urobilinogen Negative Ur Leukocyte Esterase Negative Urine RBC 1 Urine WBC 1 Ur Epithelial Cells Rare Urine Bacteria Rare Hyaline Casts 1 Urine Mucus Rare U Random Total Protein Ur Random Sodium Ur Random Potassium Ur Random Chloride Urine Creatinine Protein/Creatinin Ratio 05/30/17 05/30/17 05/30/17 02:00 05:20 05:20 WBC 6.2 D RBC 4.41 Hgb 12.5 Hct 38.3 MCV 86.8 MCH 28.4 MCHC 32.7 RDW 15.7 H Plt Count 135 MPV 9.9 Neutrophils % 64.0 Lymphocytes % 24.0 D Monocytes % 12.0 H Eosinophils % Basophils % Differential Comment Manual diff done Platelet Estimate Slt decreased PTT (Actin FS) 31.0 Anticoagulation Therapy Puncture Site Patient Temperature ABG pH ABG pCO2 at Pt Temp ABG pO2 at Pt Temp ABG HCO3 ABG O2 Sat (Measured) ABG O2 Content ABG Base Excess Juanjo Test O2 Delivery Device Oxygen Flow Rate Vent Mode Vent Rate Mechanical Rate PEEP Pressure Support Vent Sodium 135 L Potassium 4.0 Chloride 95 L Carbon Dioxide 30 Anion Gap 10 BUN 29 H Creatinine 2.0 H Creat Clearance w eGFR 24.36 POC Glucometer Random Glucose 221 H Lactic Acid Calcium 8.7 Total Bilirubin 0.6 D AST 27 ALT 26 Alkaline Phosphatase 73 B-Natriuretic Peptide 965.49 H Total Protein 6.5 Albumin 3.2 L Urine Color Urine Appearance Urine pH Ur Specific [place] Urine Protein Urine Glucose (UA) Urine Ketones Urine Blood Urine Nitrite Urine Bilirubin Urine Urobilinogen Ur Leukocyte Esterase Urine RBC Urine WBC Ur Epithelial Cells Urine Bacteria Hyaline Casts Urine Mucus U Random Total Protein Ur Random Sodium Ur Random Potassium Ur Random Chloride Urine Creatinine Protein/Creatinin Ratio 05/30/17 05/30/17 05/30/17 05:20 05:20 06:38 WBC RBC Hgb Hct MCV MCH MCHC RDW Plt Count MPV Neutrophils % Lymphocytes % Monocytes % Eosinophils % Basophils % Differential Comment Platelet Estimate PTT (Actin FS) Anticoagulation Therapy Puncture Site Patient Temperature ABG pH ABG pCO2 at Pt Temp ABG pO2 at Pt Temp ABG HCO3 ABG O2 Sat (Measured) ABG O2 Content ABG Base Excess Juanjo Test O2 Delivery Device Oxygen Flow Rate Vent Mode Vent Rate Mechanical Rate PEEP Pressure Support Vent Sodium Potassium Chloride Carbon Dioxide Anion Gap BUN Creatinine Creat Clearance w eGFR POC Glucometer [phone] Random Glucose Lactic Acid 1.4 Calcium Total Bilirubin AST ALT Alkaline Phosphatase B-Natriuretic Peptide Cancelled Total Protein Albumin Urine Color Urine Appearance Urine pH Ur Specific [place] Urine Protein Urine Glucose (UA) Urine Ketones Urine Blood Urine Nitrite Urine Bilirubin Urine Urobilinogen Ur Leukocyte Esterase Urine RBC Urine WBC Ur Epithelial Cells Urine Bacteria Hyaline Casts Urine Mucus U Random Total Protein Ur Random Sodium Ur Random Potassium Ur Random Chloride Urine Creatinine Protein/Creatinin Ratio 05/30/17 05/30/17 10:29 11:10 WBC RBC Hgb Hct MCV MCH MCHC RDW Plt Count MPV Neutrophils % Lymphocytes % Monocytes % Eosinophils % Basophils % Differential Comment Platelet Estimate PTT (Actin FS) 39.3 H Anticoagulation Therapy Puncture Site Patient Temperature ABG pH ABG pCO2 at Pt Temp ABG pO2 at Pt Temp ABG HCO3 ABG O2 Sat (Measured) ABG O2 Content ABG Base Excess Juanjo Test O2 Delivery Device Oxygen Flow Rate Vent Mode Vent Rate Mechanical Rate PEEP Pressure Support Vent Sodium Potassium Chloride Carbon Dioxide Anion Gap BUN Creatinine Creat Clearance w eGFR POC Glucometer [phone] Random Glucose Lactic Acid Calcium Total Bilirubin AST ALT Alkaline Phosphatase B-Natriuretic Peptide Total Protein Albumin Urine Color Urine Appearance Urine pH Ur Specific [place] Urine Protein Urine Glucose (UA) Urine Ketones Urine Blood Urine Nitrite Urine Bilirubin Urine Urobilinogen Ur Leukocyte Esterase Urine RBC Urine WBC Ur Epithelial Cells Urine Bacteria Hyaline Casts Urine Mucus U Random Total Protein Ur Random Sodium Ur Random Potassium Ur Random Chloride Urine Creatinine Protein/Creatinin Ratio IMP: Fever -> Etiology to be determined (?) Viral Illness Bibasilar atelectasis -> Hypoxemia Do not have a high clinical suspicion of VTE Do not suspect PNA Thoracic spine abnormality noted on CT imaging -> needs further elucidation Morbid obesity Suspected OSAS (?) confusion DM HTN PLAN: MRI IVF ABX per ID Follow cultures O2 as needed Will need full sleep workup after discharge May need to hold ARB Dr Grant Critical Care Time Total Critical Care Time: 35 Critical Care Statement: The care of this patient involved high complexity decision making to prevent further life threatening deterioration of the patient 's condition and/or to evaluate & treat vital organ system(s) failure or risk of failure.
[2017-05-30 15:54] LABS: CPK 267 IU/L (26-192)
[2017-05-30] MEDS ORDERED: methylPREDNISolone NA SUCC 125 MG/2 ML VIAL IVPB ONE (16:03)
--- NOTE | 2017-05-30 16:26 | PN ---
Progress Note, Physician Chief Complaint: Presently resting comfortably History of Present Illness: This is a 76 year old female with a PMH of HTN. She presented to the ED with a change in mental status and an expressive aphasia. EKG showed sinus tachycardia at 101 BPM with LAD, PRWP across the anterior precordial leads, and NSSTTW changes. Initial Head CT was without acuter pathology. BP was elevated to 178/86 mmHg but reduced to 157/77 mmHg. 05/30/17 Rapid response called and found to be hypoxic with an O2 sat of 81 % on room air. Also found to have a fever to 103. Echocardiogram pending. - Current Medication List Current Medications: Active Medications Acetaminophen (Tylenol -) 650 mg PO Q6H PRN PRN Reason: FEVER OR PAIN Last Admin: 05/30/17 06:43 Dose: 650 mg Albuterol Sulfate (Ventolin 0.083% Nebulizer Soln -) 1 amp NEB Q4H PRN PRN Reason: SHORT OF BREATH/WHEEZING Aspirin (Ecotrin -) 81 mg PO DAILY [facility] Last Admin: 05/30/17 10:24 Dose: 81 mg Fluoxetine HCl (Prozac -) 10 mg PO DAILY [facility] Last Admin: 05/30/17 11:46 Dose: 10 mg Heparin Sodium (Porcine) (Heparin -) 1,000 unit IVPUSH PRN PRN PRN Reason: Heparin Heparin Sodium (Porcine) (Heparin -) 5,000 unit IVPUSH PRN PRN PRN Reason: Heparin Last Admin: 05/30/17 11:00 Dose: 5,000 unit Sodium Chloride (1/2 Normal Saline) 1,000 mls @ 75 mls/hr IV ASDIR [facility] Last Admin: 05/30/17 15:03 Dose: Not Given Heparin Sodium (Porcine) 25, (000 unit/ Sodium Chloride) 500 mls @ 20 mls/hr IV TITR [facility]; 1,000 UNIT/HR PRN Reason: Protocol Last Titration: 05/30/17 10:56 Dose: 1,150 unit/hr Ceftriaxone Sodium (Rocephin 2gm Ivpb (Pre-Docked)) 100 mls @ 200 mls/hr IVPB DAILY [facility] Last Admin: 05/30/17 10:20 Dose: 200 mls/hr Insulin Aspart (Novolog Vial Sliding Scale -) 1 vial SQ ACHS [facility] PRN Reason: Protocol Last Admin: 05/30/17 11:12 Dose: 2 units Insulin Detemir (Levemir Vial) 20 units SQ HS [facility] Memantine (Namenda -) 5 mg PO BID [facility] Last Admin: 05/30/17 11:46 Dose: 5 mg Metoprolol Tartrate (Lopressor Injection -) 5 mg IVPB Q6H PRN PRN Reason: SBP >120 Nifedipine (Procardia Xl -) 30 mg PO DAILY [facility] Last Admin: 05/30/17 10:24 Dose: 30 mg Ondansetron HCl (Zofran Injection) 4 mg IVPB Q6H PRN PRN Reason: NAUSEA AND/OR VOMITING Pantoprazole Sodium (Protonix -) 40 mg PO DAILY [facility] Prochlorperazine Maleate (Compazine -) 5 mg PO Q4H PRN PRN Reason: NAUSEA AND/OR VOMITING Rosuvastatin Calcium (Crestor -) 20 mg PO HS [facility] Valsartan (Diovan -) 80 mg PO DAILY [facility] Last Admin: 05/30/17 10:25 Dose: 80 mg - Objective Vital Signs: Vital Signs Temperature 103.3 F H 05/30/17 16:00 Pulse Rate 117 H 05/30/17 16:00 Respiratory Rate 32 H 05/30/17 16:00 Blood Pressure 166/91 05/30/17 16:00 O2 Sat by Pulse Oximetry (%) 100 05/30/17 11:19 Constitutional: Yes: No Distress Neck: Yes: WNL Cardiovascular: Yes: Regular Rate and Rhythm, S1, S2 (No MRHG) Respiratory: Yes: Other (Bibasilar crackles) Gastrointestinal: Yes: Soft Edema: LLE: Trace, RLE: Trace Neurological: Yes: Oriented (Speaks appropriately) Labs: CBC, BMP 05/30/17 05:20 05/30/17 05:20 INR, PTT INR 1.11 (0.82-1.09) 05/28/17 18:20 Assessment/Plan 76 year old female with a PMH of HTN. She presented to the ED with a change in mental status and an expressive aphasia. EKG showed sinus tachycardia at 101 BPM with LAD, PRWP across the anterior precordial leads, and NSSTTW changes. Initial Head CT was without acuter pathology. BP was elevated to 178/86 mmHg but reduced to 157/77 mmHg. 05/30/17 Rapid response called and found to be hypoxic with an O2 sat of 81 % on room air. Also found to have a fever to 103. ABX continued BNP 965 Given low BNP, no need for aggressive diuresis at this time Echocardiogram pending. Change in Mental Status Obtain Carotid Dopplers Current BP 166/91 mmHg Would increase Nifedipine XL to 60 mg daily Continue Diovan 80 mg daily Would also continue Metoprolol Tartrate Continue for secondary prevention: Aspirin 81 mg PO daily Crestor 20 mg PO daily Will follow with you.
--- NOTE | 2017-05-30 17:11 | PN ---
Progress Note, Physician History of Present Illness: Pt seen and examined at bedside. She was transferred to the ICU for hypoxia and closer monitoring. She however is more awake today than yesterday. She does complain of lower back pain. - Current Medication List Current Medications: Active Medications Acetaminophen (Tylenol -) 650 mg PO Q6H PRN PRN Reason: FEVER OR PAIN Last Admin: 05/30/17 06:43 Dose: 650 mg Albuterol Sulfate (Ventolin 0.083% Nebulizer Soln -) 1 amp NEB Q4H PRN PRN Reason: SHORT OF BREATH/WHEEZING Aspirin (Ecotrin -) 81 mg PO DAILY [facility] Last Admin: 05/30/17 10:24 Dose: 81 mg Fluoxetine HCl (Prozac -) 10 mg PO DAILY [facility] Last Admin: 05/30/17 11:46 Dose: 10 mg Heparin Sodium (Porcine) (Heparin -) 1,000 unit IVPUSH PRN PRN PRN Reason: Heparin Heparin Sodium (Porcine) (Heparin -) 5,000 unit IVPUSH PRN PRN PRN Reason: Heparin Last Admin: 05/30/17 11:00 Dose: 5,000 unit Sodium Chloride (1/2 Normal Saline) 1,000 mls @ 75 mls/hr IV ASDIR [facility] Last Admin: 05/30/17 15:03 Dose: Not Given Heparin Sodium (Porcine) 25, (000 unit/ Sodium Chloride) 500 mls @ 20 mls/hr IV TITR [facility]; 1,000 UNIT/HR PRN Reason: Protocol Last Titration: 05/30/17 10:56 Dose: 1,150 unit/hr Ceftriaxone Sodium (Rocephin 2gm Ivpb (Pre-Docked)) 100 mls @ 200 mls/hr IVPB DAILY [facility] Last Admin: 05/30/17 10:20 Dose: 200 mls/hr Insulin Aspart (Novolog Vial Sliding Scale -) 1 vial SQ ACHS [facility] PRN Reason: Protocol Last Admin: 05/30/17 16:30 Dose: Not Given Insulin Detemir (Levemir Vial) 20 units SQ HS [facility] Memantine (Namenda -) 5 mg PO BID [facility] Last Admin: 05/30/17 11:46 Dose: 5 mg Metoprolol Tartrate (Lopressor Injection -) 5 mg IVPB Q6H PRN PRN Reason: SBP >120 Nifedipine (Procardia Xl -) 30 mg PO DAILY [facility] Last Admin: 05/30/17 10:24 Dose: 30 mg Ondansetron HCl (Zofran Injection) 4 mg IVPB Q6H PRN PRN Reason: NAUSEA AND/OR VOMITING Pantoprazole Sodium (Protonix -) 40 mg PO DAILY [facility] Prochlorperazine Maleate (Compazine -) 5 mg PO Q4H PRN PRN Reason: NAUSEA AND/OR VOMITING Rosuvastatin Calcium (Crestor -) 20 mg PO [facility] Valsartan (Diovan -) 80 mg PO DAILY [facility] Last Admin: 05/30/17 10:25 Dose: 80 mg - Objective Vital Signs: Vital Signs Temperature 103.3 F H 05/30/17 16:00 Pulse Rate 117 H 05/30/17 16:00 Respiratory Rate 32 H 05/30/17 16:00 Blood Pressure 166/91 05/30/17 16:00 O2 Sat by Pulse Oximetry (%) 100 05/30/17 11:19 Constitutional: Yes: Calm Eyes: Yes: Conjunctiva Clear HENT: Yes: Atraumatic Neck: Yes: Supple Cardiovascular: Yes: S1, S2 Respiratory: Yes: CTA Bilaterally Gastrointestinal: Yes: Soft, Abdomen, Obese Musculoskeletal: Yes: WNL Edema: No Neurological: Yes: Oriented Labs: CBC, BMP 05/30/17 05:20 05/30/17 05:20 INR, PTT INR 1.11 (0.82-1.09) 05/28/17 18:20 Problem List - Problems (1) Altered mental status Code(s): R41.82 - ALTERED MENTAL STATUS, UNSPECIFIED Qualifiers: Altered mental status type: unspecified Qualified Code(s): R41.82 - Altered mental status, unspecified (2) Hypercholesteremia Code(s): E78.00 - PURE HYPERCHOLESTEROLEMIA, UNSPECIFIED (3) Hyperglycemia Code(s): R73.9 - HYPERGLYCEMIA, UNSPECIFIED (4) Hypertension Code(s): I10 - ESSENTIAL (PRIMARY) HYPERTENSION Qualifiers: Hypertension type: essential hypertension Qualified Code(s): I10 - Essential (primary) hypertension (5) Hypoxemia Code(s): R09.02 - HYPOXEMIA (6) CKD (chronic kidney disease) Code(s): N18.9 - CHRONIC KIDNEY DISEASE, UNSPECIFIED Assessment/Plan Current Medications Generic Name Dose Route Start Last Admin Trade Name Freq PRN Reason Stop Dose Admin Acetaminophen 650 mg 05/30/17 03:00 05/30/17 06:43 Tylenol - PO 650 mg Q6H PRN Administration FEVER OR PAIN Albuterol Sulfate 1 amp 05/30/17 13:28 Ventolin 0.083% Nebulizer Soln - NEB Q4H PRN SHORT OF BREATH/WHEEZING Aspirin 81 mg 05/30/17 10:00 05/30/17 10:24 Ecotrin - PO 81 mg DAILY [facility] Administration Fluoxetine HCl 10 mg 05/30/17 10:00 05/30/17 11:46 Prozac - PO 10 mg DAILY [facility] Administration Heparin Sodium (Porcine) 1,000 unit 05/30/17 00:41 Heparin - IVPUSH PRN PRN Heparin Heparin Sodium (Porcine) 5,000 unit 05/30/17 00:41 05/30/17 11:00 Heparin - IVPUSH 5,000 unit PRN PRN Administration Heparin Sodium Chloride 1,000 mls @ 75 mls/hr 05/29/17 15:03 05/30/17 15:03 1/2 Normal Saline IV Not Given ASDIR [facility] Heparin Sodium (Porcine) 25, 500 mls @ 20 mls/hr 05/30/17 00:45 05/30/17 10:56 000 unit/ Sodium Chloride IV 1,150 unit/hr TITR [facility] Titration Protocol 1,000 UNIT/HR Ceftriaxone Sodium 100 mls @ 200 mls/hr 05/30/17 10:00 05/30/17 10:20 Rocephin 2gm Ivpb (Pre-Docked) IVPB 200 mls/hr DAILY [facility] Administration Insulin Aspart 1 vial 05/30/17 07:00 05/30/17 16:30 Novolog Vial Sliding Scale - SQ Not Given ACHS [facility] Protocol Insulin Detemir 20 units 05/30/17 22:00 Levemir Vial SQ HS [facility] Memantine 5 mg 05/30/17 10:00 05/30/17 11:46 Namenda - PO 5 mg BID [facility] Administration Metoprolol Tartrate 5 mg 05/30/17 03:00 Lopressor Injection - IVPB Q6H PRN SBP >120 Nifedipine 30 mg 05/30/17 10:00 05/30/17 10:24 Procardia Xl - PO 30 mg DAILY [facility] Administration Ondansetron HCl 4 mg 05/30/17 03:00 Zofran Injection IVPB Q6H PRN NAUSEA AND/OR VOMITING Pantoprazole Sodium 40 mg 05/30/17 15:00 Protonix - PO DAILY [facility] Prochlorperazine Maleate 5 mg 05/30/17 03:00 Compazine - PO Q4H PRN NAUSEA AND/OR VOMITING Rosuvastatin Calcium 20 mg 05/30/17 22:00 Crestor - PO HS [facility] Valsartan 80 mg 05/30/17 10:00 05/30/17 10:25 Diovan - PO 80 mg DAILY [facility] Administration Impression 1. CKD 2. DM 3. HTN 4. altered mental status 5. vomiting 6. r/p sepsis 7. fever Plan - renal function is worsening - will hold diovan if renal function is worse in am - follow urine lytes to calc fena - asked family to bring in records - gentle hydration - hold sedatives - follow cultures - discussed with ICU team Dr Salmon
[2017-05-30] MEDS: PANTOPRAZOLE 40 MG TABLET (FP) PO SCH (17:56)
--- NOTE | 2017-05-30 20:10 | PN ---
Progress Note (short form) - Note Progress Note: HPI 76 year old female history of DM, HTN, Alzheimer disease , brought to hospital for mental status change adn fall. Inital Ct head was unremarkable. She was felt feverish at home and later at hospital she is found to have 103 fever. Last night she become hpoxic and was brought to icu for possible PE. She continue to spike fever. She is on iv heparin at this time. Patient is quite sleepy and on stimulating her she wakes up and then go back to sleep again Past Medical History DM, HTN and Dmentia Physical Examination 103 temperature 103 early at 4 pm and now 100.8 sleepy and have to stimulate her and she is able follow command, she is netta to tell it is 2017, and she is at [facility] she is able to tell her age and she denies any headhace eomi, no face asymmetry, moving all extremity ct head is unremarkable Assessment- Disorientation due to medical condition ( ? PE and Fever ), possibility of stroke cant be ruled out, 2. Less likely to be Meningitis ( no headhace, neck is supple) Plan-- mri of brain once stable - continue supportive treatment and consider LP ( IR Guided, given her size) if no other source cant identified and she continue to spike fever, clinically at this time less likely Jatin Greer MD Neurology Attending
[2017-05-30] MEDS ORDERED: INSULIN DETEMIR 100 UNITS/ML MDV SQ SCH (22:00)
[2017-05-30] MEDS ORDERED: ROSUVASTATIN CA 20 MG TABLET (FP) PO SCH (22:00)
[2017-05-31] MEDS: HEPARIN - 25,000 UNIT in SODIUM CHLORIDE 495 ML IV SCH ×2 (00:45→21:21)
[2017-05-31] MEDS ORDERED: HEMOQUE CONTROL SOLUTION ONE ×2 (03:05→06:40)
[2017-05-31] MEDS ORDERED: HEPARIN INFUSION - 500 ML IVPB ONE (03:15)
[2017-05-31 06:31] LABS: MCHC 33.3 g/dl (32.0-36.0); MEAN PLT VOLUME 10.2 fl (7.5-11.1); PLATELET COUNT 153 K/MM3 (134-434); RDW 15.1 % (11.6-15.6); WHITE BLOOD COUNT 4.1 K/mm3 (4.0-10.0)
[2017-05-31] MEDS: INSULIN SLIDING SCALE (NOVOLOG) 1 VIAL SQ SCH ×4 (06:52→21:27)
--- NOTE | 2017-05-31 07:28 | PN ---
Progress Note, Physician History of Present Illness: ID Degree of improvement today is remarkable Alert much more conversive and oriented though the etiology of 103 fever unclear. She is afebrile today. Ceftriaxone day 2 Rx Offers no complaints - Current Medication List Current Medications: Active Medications Acetaminophen (Tylenol -) 650 mg PO Q6H PRN PRN Reason: FEVER OR PAIN Last Admin: 05/30/17 22:23 Dose: 650 mg Albuterol Sulfate (Ventolin 0.083% Nebulizer Soln -) 1 amp NEB Q4H PRN PRN Reason: SHORT OF BREATH/WHEEZING Last Admin: 05/30/17 17:27 Dose: 1 amp Aspirin (Ecotrin -) 81 mg PO DAILY [facility] Last Admin: 05/30/17 10:24 Dose: 81 mg Fluoxetine HCl (Prozac -) 10 mg PO DAILY [facility] Last Admin: 05/30/17 11:46 Dose: 10 mg Heparin Sodium (Porcine) (Heparin -) 1,000 unit IVPUSH PRN PRN PRN Reason: Heparin Heparin Sodium (Porcine) (Heparin -) 5,000 unit IVPUSH PRN PRN PRN Reason: Heparin Last Admin: 05/30/17 11:00 Dose: 5,000 unit Sodium Chloride (1/2 Normal Saline) 1,000 mls @ 75 mls/hr IV ASDIR [facility] Last Admin: 05/30/17 15:03 Dose: Not Given Heparin Sodium (Porcine) 25, (000 unit/ Sodium Chloride) 500 mls @ 20 mls/hr IV TITR GORGE; 1,000 UNIT/HR PRN Reason: Protocol Last Admin: 05/31/17 00:45 Dose: 23 mls/hr Ceftriaxone Sodium (Rocephin 2gm Ivpb (Pre-Docked)) 100 mls @ 200 mls/hr IVPB DAILY [facility] Last Admin: 05/30/17 10:20 Dose: 200 mls/hr Insulin Aspart (Novolog Vial Sliding Scale -) 1 vial SQ ACHS [facility] PRN Reason: Protocol Last Admin: 05/31/17 06:52 Dose: 6 units Insulin Detemir (Levemir Vial) 20 units SQ HS [facility] Last Admin: 05/30/17 22:07 Dose: 20 units Memantine (Namenda -) 5 mg PO BID [facility] Last Admin: 05/30/17 22:08 Dose: 5 mg Metoprolol Tartrate (Lopressor Injection -) 5 mg IVPB Q6H PRN PRN Reason: SBP >120 Nifedipine (Procardia Xl -) 30 mg PO DAILY [facility] Last Admin: 05/30/17 10:24 Dose: 30 mg Ondansetron HCl (Zofran Injection) 4 mg IVPB Q6H PRN PRN Reason: NAUSEA AND/OR VOMITING Pantoprazole Sodium (Protonix -) 40 mg PO DAILY [facility] Last Admin: 05/30/17 17:56 Dose: Not Given Prochlorperazine Maleate (Compazine -) 5 mg PO Q4H PRN PRN Reason: NAUSEA AND/OR VOMITING Rosuvastatin Calcium (Crestor -) 20 mg PO HS [facility] Last Admin: 05/30/17 22:07 Dose: 20 mg Valsartan (Diovan -) 80 mg PO DAILY [facility] Last Admin: 05/30/17 10:25 Dose: 80 mg - Objective Vital Signs: Vital Signs Temperature 97.9 F 05/31/17 06:00 Pulse Rate 79 05/31/17 06:00 Respiratory Rate 16 05/31/17 06:00 Blood Pressure 106/55 05/31/17 06:00 O2 Sat by Pulse Oximetry (%) 95 05/30/17 20:27 Constitutional: Yes: No Distress, Obese Neck: Yes: WNL, Supple Cardiovascular: Yes: Regular Rate and Rhythm, S1, S2. No: Bruit, Gallop, Murmur Respiratory: Yes: WNL, Regular, CTA Bilaterally Gastrointestinal: Yes: WNL, Normal Bowel Sounds, Soft Extremities: No: Cold, Cool, Cyanosis Edema: No Labs: CBC, BMP 05/31/17 05:15 INR, PTT INR 1.11 (0.82-1.09) 05/28/17 18:20 Problem List - Problems (1) Altered mental status Code(s): R41.82 - ALTERED MENTAL STATUS, UNSPECIFIED Qualifiers: Altered mental status type: unspecified Qualified Code(s): R41.82 - Altered mental status, unspecified (2) Fever Code(s): R50.9 - FEVER, UNSPECIFIED (3) Diabetes Code(s): E11.9 - TYPE 2 DIABETES MELLITUS WITHOUT COMPLICATIONS (4) Sepsis Code(s): A41.9 - SEPSIS, UNSPECIFIED ORGANISM Assessment/Plan Microbiology 05/30/17 14:40 Nasopharyngeal Swab Influenza Types A,B Antigen (JENNIFER) - Final 05/30/17 14:40 Nasopharyngeal Swab - Final 05/29/17 16:45 Blood - Peripheral Venous Blood Culture - Preliminary NO GROWTH OBTAINED AFTER 24 HOURS, INCUBATION TO CONTINUE FOR 4 DAYS. 05/29/17 16:40 Blood - Peripheral Venous Blood Culture - Preliminary NO GROWTH OBTAINED AFTER 24 HOURS, INCUBATION TO CONTINUE FOR 4 DAYS. Laboratory Tests 05/30/17 05/31/17 01:00 05:15 WBC 4.1 D Plt Count 153 ABG pH 7.46 H ABG pCO2 at Pt Temp 37.6 D ABG pO2 at Pt Temp 135.0 H D Oxygen Flow Rate 4 lpm Assessment Sepsis syndrome unspecified etiology Consider viral illness with fever couph and thrombocytopenia Fever 103.7 resolved Metabolic encephalopathy severe improved Dementia Diabetes Plan Continue Ceftriaxone another 24 hours then stop depending on cultures Critical care time spent YES 39 minutes Chari VACA
[2017-05-31 07:33] LABS: ALBUMIN 2.8 g/dl (3.4-5.0); ALK PHOS 59 U/L (45-117); ANION GAP 10 (8-16); BILIRUBIN,TOTAL 0.4 mg/dL (0.2-1.0); CALCIUM 8.3 mg/dL (8.5-10.1); CO2 26 mmol/L (21-32); CREATININE 1.9 mg/dL (0.55-1.02); MAGNESIUM 2.1 mg/dL (1.8-2.4); PHOSPHOROUS 4.9 mg/dL (2.5-4.9); SGOT/AST 24 U/L (15-37); SGPT/ALT 27 U/L (12-78); TOT PROT 6.4 g/dl (6.4-8.2)
[2017-05-31 07:40] LABS: GLUCOSE,RANDOM 339 mg/dL (74-106)
--- NOTE | 2017-05-31 08:32 | PN ---
Progress Note, Physician History of Present Illness: 76 yo primarily greenlandic speaking woman with hx of Alzheimers dementia, CKD and hypertension who was admitted ~ 48hrs ago with subjective fever and confusion. She was hemodynamically stable and without localizing source of infection (cxr unremarkable, UA clean). She underwent CT head which was negative and was admitted to the floor. 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 She was found to have Spo2 of 81% on RA. Placed on NRB and then dropped down to 4LNC with abg on NC 7.46/37/135 (slightly elevated A-a of 68 by my calculation). She had a fever (oral) to 103. Plan made to transfer to ICU for monitoring. Abx (vanco and P/T) were ordered and repeat UA. Started on empiric anticoagulation for presumed Pulm embolism, LE duplex ordered as well. Had been seen by Neuro, GI, and Renal while on floor. On arrival in ICU pt awake, mioderately confused, hemodynamically stable, Spo2 97% on NC. This am pt feels better no cp or sob no connelly - Current Medication List Current Medications: Active Medications Acetaminophen (Tylenol -) 650 mg PO Q6H PRN PRN Reason: FEVER OR PAIN Last Admin: 05/30/17 22:23 Dose: 650 mg Albuterol Sulfate (Ventolin 0.083% Nebulizer Soln -) 1 amp NEB Q4H PRN PRN Reason: SHORT OF BREATH/WHEEZING Last Admin: 05/30/17 17:27 Dose: 1 amp Aspirin (Ecotrin -) 81 mg PO DAILY [facility] Last Admin: 05/30/17 10:24 Dose: 81 mg Fluoxetine HCl (Prozac -) 10 mg PO DAILY [facility] Last Admin: 05/30/17 11:46 Dose: 10 mg Heparin Sodium (Porcine) (Heparin -) 1,000 unit IVPUSH PRN PRN PRN Reason: Heparin Heparin Sodium (Porcine) (Heparin -) 5,000 unit IVPUSH PRN PRN PRN Reason: Heparin Last Admin: 05/30/17 11:00 Dose: 5,000 unit Sodium Chloride (1/2 Normal Saline) 1,000 mls @ 75 mls/hr IV ASDIR [facility] Last Admin: 05/30/17 15:03 Dose: Not Given Heparin Sodium (Porcine) 25, (000 unit/ Sodium Chloride) 500 mls @ 20 mls/hr IV TITR GORGE; 1,000 UNIT/HR PRN Reason: Protocol Last Admin: 05/31/17 00:45 Dose: 23 mls/hr Ceftriaxone Sodium (Rocephin 2gm Ivpb (Pre-Docked)) 100 mls @ 200 mls/hr IVPB DAILY [facility] Last Admin: 05/30/17 10:20 Dose: 200 mls/hr Insulin Aspart (Novolog Vial Sliding Scale -) 1 vial SQ ACHS [facility] PRN Reason: Protocol Last Admin: 05/31/17 06:52 Dose: 6 units Insulin Detemir (Levemir Vial) 20 units SQ HS [facility] Last Admin: 05/30/17 22:07 Dose: 20 units Memantine (Namenda -) 5 mg PO BID [facility] Last Admin: 05/30/17 22:08 Dose: 5 mg Metoprolol Tartrate (Lopressor Injection -) 5 mg IVPB Q6H PRN PRN Reason: SBP >120 Nifedipine (Procardia Xl -) 30 mg PO DAILY [facility] Last Admin: 05/30/17 10:24 Dose: 30 mg Ondansetron HCl (Zofran Injection) 4 mg IVPB Q6H PRN PRN Reason: NAUSEA AND/OR VOMITING Pantoprazole Sodium (Protonix -) 40 mg PO DAILY [facility] Last Admin: 05/30/17 17:56 Dose: Not Given Prochlorperazine Maleate (Compazine -) 5 mg PO Q4H PRN PRN Reason: NAUSEA AND/OR VOMITING Rosuvastatin Calcium (Crestor -) 20 mg PO [facility] Last Admin: 05/30/17 22:07 Dose: 20 mg Valsartan (Diovan -) 80 mg PO DAILY [facility] Last Admin: 05/30/17 10:25 Dose: 80 mg - Objective Vital Signs: Vital Signs Temperature 98.3 F 05/31/17 08:00 Pulse Rate 79 05/31/17 08:00 Respiratory Rate 16 05/31/17 08:00 Blood Pressure 123/72 05/31/17 08:00 O2 Sat by Pulse Oximetry (%) 95 05/30/17 20:27 Cardiovascular: Yes: Regular Rate and Rhythm, Murmur Respiratory: Yes: Regular, CTA Bilaterally Gastrointestinal: Yes: Normal Bowel Sounds, Soft Edema: No Labs: CBC, BMP 05/31/17 05:15 05/31/17 05:15 INR, PTT INR 1.11 (0.82-1.09) 05/28/17 18:20 Problem List - Problems (1) Altered mental status Assessment/Plan: IMPROVED CT OF HEAD NEGATIVE MRI OF HEAD--PENDING NEURO FOLLOW UP POSSIBLE--TOXIC-METABOLIC Code(s): R41.82 - ALTERED MENTAL STATUS, UNSPECIFIED Qualifiers: Altered mental status type: unspecified Qualified Code(s): R41.82 - Altered mental status, unspecified (2) Hypertension Assessment/Plan: MONITOR BP Code(s): I10 - ESSENTIAL (PRIMARY) HYPERTENSION Qualifiers: Hypertension type: essential hypertension Qualified Code(s): I10 - Essential (primary) hypertension (3) Fever Assessment/Plan: AFEBRILE THIS AM' ECHO NOTED--CARDIO F/U CULTURES DONE-NEG TO DATE D/W DR MIRAMONTES--ABX Code(s): R50.9 - FEVER, UNSPECIFIED (4) Hypoxemia Assessment/Plan: DUPLEX NEGATIVE R/O PE HEPARIN DRIP PULM CONSULT Code(s): R09.02 - HYPOXEMIA
--- NOTE | 2017-05-31 08:40 | PN ---
Progress Note (short form) - Note Progress Note: HPI 76 year old female history of DM, HTN, Alzheimer disease , brought to hospital for mental status change adn fall. Inital Ct head was unremarkable.She has high grade fever ( upto 103 f at hospital). day before yesterday she became hypoxic and was started on iv heparin on possible PE Today she looks very bright , and sitting in bed, opens her eye spontaneously. has been afebrile over night Physical Examination temp 98.3 and bp 123/72 alert and bright and able to follow command , she was able to tell me it is may, and name of hospital, hre name and her age she told me today si . She denies any headache no neck stiffness moving all extremity CN all intact ct head is unremarkable Assessment-Delirium due to medical condition ( ? PE and Fever ), as she has history of Dementia 2. Less likely to be Meningitis ( no headhace, neck is supple) now has been afebrile Plan-- mri of brain once stable - continue rest of treatment Jatin Greer MD Neurology Attending
[2017-05-31] MEDS ORDERED: PT OWN MED DRAWER 7, Y5N ONE ×2 (09:10→09:37)
[2017-05-31] MEDS: MEMANTINE HCL 5 MG TABLET (UD) PO SCH ×2 (09:16→21:20)
[2017-05-31] MEDS: PANTOPRAZOLE 40 MG TABLET (FP) PO SCH (09:16)
[2017-05-31] MEDS: NIFEdipine E.R. 30 MG TABLET (FP) PO SCH (09:16)
[2017-05-31] MEDS: VALSARTAN 80 MG TABLET (UD) PO SCH (09:16)
[2017-05-31] MEDS: ASPIRIN COATED 81 MG TABLET.EC PO SCH (09:16)
[2017-05-31] MEDS: CEFTRIAXONE 100 ML IVPB SCH (09:17)
[2017-05-31] MEDS: FLUoxetine HCL 10 MG CAPSULE (FP) PO SCH (09:17)
[2017-05-31] MEDS: ACETAMINOPHEN 325 MG TABLET (FP) PO PRN ×3 (09:38→22:30)
--- NOTE | 2017-05-31 11:02 | PN ---
Progress Note, APPRENTICE STYLIST - Note Progress Note: Selected Entries Pt was transferred to ICU for persistent temp and hypoxemia to 80's% 05/30/17 05/30/17 05/30/17 00:21 08:00 10:00 Breakfast Lunch 50% Temperature 103.1 F H 102.4 F H 102.5 F H 05/30/17 05/30/17 05/30/17 12:00 14:00 16:00 Breakfast Lunch Temperature 103.2 F H 101.8 F H 99.2 F 05/30/17 05/31/17 05/31/17 18:00 02:00 06:00 Breakfast Lunch Temperature 100.2 F H 97.9 F 97.9 F 05/31/17 08:00 Breakfast 25% Lunch 50% Temperature 98.3 F Laboratory Tests 05/29/17 05/30/17 05/31/17 08:30 02:00 05:15 WBC 5.3 4.6 4.1 D Spontaneous recovery of language deficits. Pt is verbal, fluent, appropriate, o x 3 (,Trump,76). 3 oz water test (-). Pt is on clear liquids. Diet upgrade per PMD/GI. No swallowing deficits suspected.
[2017-05-31] MEDS ORDERED: HEMOQUE TEST 1 EACH EACH ONE (11:16)
[2017-05-31] MEDS: SODIUM CHLORIDE 0.45% 1,000 ML IV SCH ×2 (13:30→15:03)
--- NOTE | 2017-05-31 14:48 | PN ---
Physical Exam: SUBJECTIVE: Patient seen and examined at bed side this morning. No complaints except for back pain. No acute overnight events. No fever. OBJECTIVE: Vital Signs Period Temp Pulse Resp BP Sys/Francis Pulse Ox Last 24 Hr 97.6 F-103.3 F 66-117 16-34 100-166/55-91 95-100 GENERAL: The patient is awake, alert, and fully oriented, in no acute distress. HEAD: Normal with no signs of trauma. EYES: PERRL, extraocular movements intact, Mild Pallor but no icterus. ENT: Ears normal, moist mucous membranes. NECK: Trachea midline, full range of motion, supple, no JVD. LUNGS: B/L scattered wheezing, Breath sounds equal, no crackles, no accessory muscle use. HEART: Regular rate and rhythm, S1, S2 without murmur, rub or gallop. ABDOMEN: Soft, nontender, nondistended, normoactive bowel sounds, no guarding, no rebound, no hepatosplenomegaly, no masses. EXTREMITIES: 2+ pulses, warm, well-perfused, no edema. BACK: Tenderness in the lumbar area, no bruises, no erythema. NEUROLOGICAL: No facial droop, Cranial nerves II through XII grossly intact. Power 5/5 in all extremities, reflexes intact. Normal speech, gait not observed. PSYCH: Normal mood, normal affect. SKIN: Warm, dry, normal turgor, no rashes or lesions noted Laboratory Results - last 24 hr 05/30/17 05/30/17 05/30/17 05:20 16:45 17:31 WBC RBC Hgb Hct MCV MCH MCHC RDW Plt Count MPV PTT (Actin FS) 67.7 H D Sodium 135 L Potassium 4.0 Chloride 95 L Carbon Dioxide 30 Anion Gap 10 BUN 29 H Creatinine 2.0 H Creat Clearance w eGFR 24.36 POC Glucometer 198.02221 Random Glucose 221 H Calcium 8.7 Phosphorus Magnesium Total Bilirubin 0.6 D AST 27 ALT 26 Alkaline Phosphatase 73 Creatine Kinase 267 H Creatine Kinase Index 0.4 CK-MB (CK-2) 1.099 B-Natriuretic Peptide 965.49 H Total Protein 6.5 Albumin 3.2 L 05/30/17 05/31/17 05/31/17 21:51 05:15 05:15 WBC 4.1 D RBC 4.24 Hgb 12.3 Hct 36.9 MCV 87.0 MCH 29.0 MCHC 33.3 RDW 15.1 Plt Count 153 MPV 10.2 PTT (Actin FS) Sodium 131 L Potassium 3.7 Chloride 95 L Carbon Dioxide 26 Anion Gap 10 BUN 29 H Creatinine 1.9 H Creat Clearance w eGFR 25.84 POC Glucometer [phone] Random Glucose 339 H* D Calcium 8.3 L Phosphorus 4.9 Magnesium 2.1 Total Bilirubin 0.4 D AST 24 ALT 27 Alkaline Phosphatase 59 Creatine Kinase Creatine Kinase Index CK-MB (CK-2) B-Natriuretic Peptide Total Protein 6.4 Albumin 2.8 L 05/31/17 05/31/17 05:15 06:48 WBC RBC Hgb Hct MCV MCH MCHC RDW Plt Count MPV PTT (Actin FS) 75.3 H Sodium Potassium Chloride Carbon Dioxide Anion Gap BUN Creatinine Creat Clearance w eGFR POC Glucometer [phone] Random Glucose Calcium Phosphorus Magnesium Total Bilirubin AST ALT Alkaline Phosphatase Creatine Kinase Creatine Kinase Index CK-MB (CK-2) B-Natriuretic Peptide Total Protein Albumin Active Medications Generic Name Dose Route Start Last Admin Trade Name Freq PRN Reason Stop Dose Admin Acetaminophen 650 mg 05/30/17 03:00 05/31/17 09:38 Tylenol - PO 650 mg Q6H PRN Administration FEVER OR PAIN Albuterol Sulfate 1 amp 05/30/17 13:28 05/30/17 17:27 Ventolin 0.083% Nebulizer Soln - NEB 1 amp Q4H PRN Administration SHORT OF BREATH/WHEEZING Aspirin 81 mg 05/30/17 10:00 05/31/17 09:16 Ecotrin - PO 81 mg DAILY [facility] Administration Fluoxetine HCl 10 mg 05/30/17 10:00 05/31/17 09:17 Prozac - PO 10 mg DAILY [facility] Administration Heparin Sodium (Porcine) 1,000 unit 05/30/17 00:41 Heparin - IVPUSH PRN PRN Heparin Heparin Sodium (Porcine) 5,000 unit 05/30/17 00:41 05/30/17 11:00 Heparin - IVPUSH 5,000 unit PRN PRN Administration Heparin Sodium Chloride 1,000 mls @ 75 mls/hr 05/29/17 15:03 05/31/17 13:30 1/2 Normal Saline IV 75 mls/hr ASDIR [facility] Administration Heparin Sodium (Porcine) 25, 500 mls @ 20 mls/hr 05/30/17 00:45 05/31/17 09:18 000 unit/ Sodium Chloride IV 1,150 unit/hr TITR GORGE Titration Protocol 1,000 UNIT/HR Ceftriaxone Sodium 100 mls @ 200 mls/hr 05/30/17 10:00 05/31/17 09:17 Rocephin 2gm Ivpb (Pre-Docked) IVPB 200 mls/hr DAILY [facility] Administration Insulin Aspart 1 vial 05/30/17 07:00 05/31/17 11:00 Novolog Vial Sliding Scale - SQ 6 units ACHS [facility] Administration Protocol Insulin Detemir 25 units 05/31/17 22:00 Levemir Vial SQ HS [facility] Memantine 5 mg 05/30/17 10:00 05/31/17 09:16 Namenda - PO 5 mg BID [facility] Administration Metoprolol Tartrate 5 mg 05/30/17 03:00 Lopressor Injection - IVPB Q6H PRN SBP >120 Nifedipine 30 mg 05/30/17 10:00 05/31/17 09:16 Procardia Xl - PO 30 mg DAILY [facility] Administration Ondansetron HCl 4 mg 05/30/17 03:00 Zofran Injection IVPB Q6H PRN NAUSEA AND/OR VOMITING Pantoprazole Sodium 40 mg 05/30/17 15:00 05/31/17 09:16 Protonix - PO 40 mg DAILY [facility] Administration Prochlorperazine Maleate 5 mg 05/30/17 03:00 Compazine - PO Q4H PRN NAUSEA AND/OR VOMITING Rosuvastatin Calcium 20 mg 05/30/17 22:00 05/30/17 22:07 Crestor - PO 20 mg HS [facility] Administration Valsartan 80 mg 05/30/17 10:00 05/31/17 09:16 Diovan - PO 80 mg DAILY [facility] Administration ASSESSMENT/PLAN: Patient is a 76 yo primarily turkish speaking woman with significant past medical hx of Alzheimers dementia, CKD and hypertension admitted for evaluation of altered mental status and fever, transferred to the ICU for evaluation of change in AMS and desaturation. Neurology Altered Mental Status:Improving AMS most likely related to high grade fevers as her mental status worsened with high grade fevers. Now at baseline as per the family CT head negative MRI of head couldn't be done as patient was agitated and had to be returned from the radiology dept. Alzheimers COntinue Memantine 5mg PO BID Sepsis unknown etiology Afebrile overnight and today. Highly suspicious of spinal abscess, MRI of thoracic and lumbar spine to be done today, consent from family attached in the chart. Less likely abdominal source, Abdominal USG showed diffuse fatty infiltration Chest CT showed B/L Atelectasis and less likely a small infiltrate. IV Fluids IV Ceftriaxone 2gm Daily Day 2 and one dose of Vancomycin given on 2016 Blood culture/urine culture negative MRI of lumbar spine without contrast was done on 05/03/[address] 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 Annular disc bulging L3-L4 with facet hypertrophy and mild central spinal stenosis. Central disc herniation L4-L5 with facet hypertrophy with moerate to severe central spinal stenosis. Right lateral disc herniation also felt present at this level. Suspicious for Pulmonary Embolism Was found to be hypoxic, sob, tachycardic- rapid response was called on 05/30/17, CTA couldn't be done due to CKD, hence empirically treated with Heparin Drip Duplex of lower ext-negative. Cardiology Echo done on 05/30/17- Focal nodular calcification on mitral valve leaflets, cannot r/o vegetation Given the negative blood cutlures, less likey patient has endocarditis, would consider a TONI. Hypertensive urgency, now hypertension-Controlled Continue IV Metoprolol 5 mg IVPG Q6H PRN; Valsartain 80mg PO Daily, Nifedipine 30mg Daily CAD/Hyperlipidemia Continue Rosuvastatin 20mg PO HS; Aspirin 81mg PO daily Endocrinology HbA1c 8.5 %, sugar above 300 in multiple readings. increased Levemir 20 to 25 U daily Takes Tresiba 100 U Am daily and Trulicity once a week at home. Continue Insulin sliding scale Finger stick glucose monitoring Watch for Hypoglycemic episodes FEN Gentle hydration Electrolytes to be repeated tomorrow Diabetic diet Prophylaxis For DVT: Already on heparin Drip For GI: On protonix 40mg Daily Code Status: Full Code Home Medication: Confirmed with pharmacy and updated in the chart. Illness, Investigation and Plan of care explained to the patient and her family. They verbalized understanding. Case seen and discussed with Dr. Grant. Visit type - Emergency Visit Emergency Visit: Yes ED Registration Date: 05/28/17 Care time: The patient presented to the Emergency Department on the above date and was hospitalized for further evaluation of their emergent condition. - New Patient This patient is new to me today: No - Critical Care Critical Care patient: Yes Total Critical Care Time (in minutes): 35 Critical Care Statement: The care of this patient involved high complexity decision making to prevent further life threatening deterioration of the patient 's condition and/or to evalute & treat vital organ system(s) failure or risk of failure.
--- NOTE | 2017-05-31 15:07 | PN ---
Teaching Attending Note Name of Resident: Yenifer Bhakta ATTENDING PHYSICIAN STATEMENT I saw and evaluated the patient. I reviewed the resident's note and discussed the case with the resident. I agree with the resident's findings and plan as documented. SUBJECTIVE: Patient seen and examined in the ICU. More awake and interactive. She denies CP or SOB. Fever curve has improved. Still with LBP. Intake & Output 05/28/17 05/29/17 05/30/17 05/31/17 23:59 23:59 23:59 23:59 Intake Total 451 2479 1065.2 Output Total 2300 250 Balance 451 179 815.2 Weight 252 lb 262 lb 14.4 oz 271 lb 274 lb 7.608 oz Last Vital Signs Temp Pulse Resp BP Pulse Ox 97.6 F 66 19 100/88 100 05/31/17 14:00 05/31/17 14:00 05/31/17 14:00 05/31/17 14:00 05/31/17 08:00 Active Medications Acetaminophen (Tylenol -) 650 mg PO Q6H PRN PRN Reason: FEVER OR PAIN Last Admin: 05/31/17 09:38 Dose: 650 mg Albuterol Sulfate (Ventolin 0.083% Nebulizer Soln -) 1 amp NEB Q4H PRN PRN Reason: SHORT OF BREATH/WHEEZING Last Admin: 05/30/17 17:27 Dose: 1 amp Aspirin (Ecotrin -) 81 mg PO DAILY [facility] Last Admin: 05/31/17 09:16 Dose: 81 mg Fluoxetine HCl (Prozac -) 10 mg PO DAILY [facility] Last Admin: 05/31/17 09:17 Dose: 10 mg Heparin Sodium (Porcine) (Heparin -) 1,000 unit IVPUSH PRN PRN PRN Reason: Heparin Heparin Sodium (Porcine) (Heparin -) 5,000 unit IVPUSH PRN PRN PRN Reason: Heparin Last Admin: 05/30/17 11:00 Dose: 5,000 unit Sodium Chloride (1/2 Normal Saline) 1,000 mls @ 75 mls/hr IV ASDIR [facility] Last Admin: 05/31/17 13:30 Dose: 75 mls/hr Heparin Sodium (Porcine) 25, (000 unit/ Sodium Chloride) 500 mls @ 20 mls/hr IV TITR [facility]; 1,000 UNIT/HR PRN Reason: Protocol Last Titration: 05/31/17 09:18 Dose: 1,150 unit/hr Ceftriaxone Sodium (Rocephin 2gm Ivpb (Pre-Docked)) 100 mls @ 200 mls/hr IVPB DAILY [facility] Last Admin: 05/31/17 09:17 Dose: 200 mls/hr Insulin Aspart (Novolog Vial Sliding Scale -) 1 vial SQ ACHS [facility] PRN Reason: Protocol Last Admin: 05/31/17 11:00 Dose: 6 units Insulin Detemir (Levemir Vial) 25 units SQ [facility] Memantine (Namenda -) 5 mg PO BID [facility] Last Admin: 05/31/17 09:16 Dose: 5 mg Metoprolol Tartrate (Lopressor Injection -) 5 mg IVPB Q6H PRN PRN Reason: SBP >120 Nifedipine (Procardia Xl -) 30 mg PO DAILY [facility] Last Admin: 05/31/17 09:16 Dose: 30 mg Ondansetron HCl (Zofran Injection) 4 mg IVPB Q6H PRN PRN Reason: NAUSEA AND/OR VOMITING Pantoprazole Sodium (Protonix -) 40 mg PO DAILY [facility] Last Admin: 05/31/17 09:16 Dose: 40 mg Prochlorperazine Maleate (Compazine -) 5 mg PO Q4H PRN PRN Reason: NAUSEA AND/OR VOMITING Rosuvastatin Calcium (Crestor -) 20 mg PO [facility] Last Admin: 05/30/17 22:07 Dose: 20 mg Valsartan (Diovan -) 80 mg PO DAILY [facility] Last Admin: 05/31/17 09:16 Dose: 80 mg Gen: elderly woman, Less confused, NAD HEENT: (-) nuchal rigidity, EOMI, atraumatic PULM: diminished bases, no accessory muscle, no wheezes CV: S1S2 regular, (-) ESM ABD: obese, soft, (+) BS EXT: trace edema NEURO: non-focal exam SKIN: No rash or breakdown Laboratory Results - last 24 hr 05/30/17 05/30/17 05/30/17 05:20 16:45 17:31 WBC RBC Hgb Hct MCV MCH MCHC RDW Plt Count MPV PTT (Actin FS) 67.7 H D Sodium 135 L Potassium 4.0 Chloride 95 L Carbon Dioxide 30 Anion Gap 10 BUN 29 H Creatinine 2.0 H Creat Clearance w eGFR 24.36 POC Glucometer [phone] Random Glucose 221 H Calcium 8.7 Phosphorus Magnesium Total Bilirubin 0.6 D AST 27 ALT 26 Alkaline Phosphatase 73 Creatine Kinase 267 H Creatine Kinase Index 0.4 CK-MB (CK-2) 1.099 B-Natriuretic Peptide 965.49 H Total Protein 6.5 Albumin 3.2 L 05/30/17 05/31/17 05/31/17 21:51 05:15 05:15 WBC 4.1 D RBC 4.24 Hgb 12.3 Hct 36.9 MCV 87.0 MCH 29.0 MCHC 33.3 RDW 15.1 Plt Count 153 MPV 10.2 PTT (Actin FS) Sodium 131 L Potassium 3.7 Chloride 95 L Carbon Dioxide 26 Anion Gap 10 BUN 29 H Creatinine 1.9 H Creat Clearance w eGFR 25.84 POC Glucometer [phone] Random Glucose 339 H* D Calcium 8.3 L Phosphorus 4.9 Magnesium 2.1 Total Bilirubin 0.4 D AST 24 ALT 27 Alkaline Phosphatase 59 Creatine Kinase Creatine Kinase Index CK-MB (CK-2) B-Natriuretic Peptide Total Protein 6.4 Albumin 2.8 L 05/31/17 05/31/17 05:15 06:48 WBC RBC Hgb Hct MCV MCH MCHC RDW Plt Count MPV PTT (Actin FS) 75.3 H Sodium Potassium Chloride Carbon Dioxide Anion Gap BUN Creatinine Creat Clearance w eGFR POC Glucometer [phone] Random Glucose Calcium Phosphorus Magnesium Total Bilirubin AST ALT Alkaline Phosphatase Creatine Kinase Creatine Kinase Index CK-MB (CK-2) B-Natriuretic Peptide Total Protein Albumin IMP: Fever -> Etiology to be determined (?) Viral Illness Bibasilar atelectasis -> Hypoxemia Do not have a high clinical suspicion of VTE Do not suspect PNA Thoracic spine abnormality noted on CT imaging -> needs further elucidation Morbid obesity Suspected OSAS (?) confusion DM HTN PLAN: MRI if family/patient is willing IVF ABX per ID Follow cultures O2 as needed Will need full sleep workup after discharge May need to hold ARB Dr Grant Critical Care Time Total Critical Care Time: 35 Critical Care Statement: The care of this patient involved high complexity decision making to prevent further life threatening deterioration of the patient 's condition and/or to evaluate & treat vital organ system(s) failure or risk of failure.
--- NOTE | 2017-05-31 16:29 | PN ---
Progress Note, Physician Chief Complaint: Presently resting comfortably History of Present Illness: This is a 76 year old female with a PMH of HTN. She presented to the ED with a change in mental status and an expressive aphasia. EKG showed sinus tachycardia at 101 BPM with LAD, PRWP across the anterior precordial leads, and NSSTTW changes. Initial Head CT was without acuter pathology. BP was elevated to 178/86 mmHg but reduced to 157/77 mmHg. 05/30/17 Rapid response called and found to be hypoxic with an O2 sat of 81 % on room air. Also found to have a fever to 103. Echocardiogram 05/30/17 Normal LV function. mild LVH, mild MR, 05/31/17 Clinically improved, sitting in a chair in no distress. - Current Medication List Current Medications: Active Medications Acetaminophen (Tylenol -) 650 mg PO Q6H PRN PRN Reason: FEVER OR PAIN Last Admin: 05/31/17 09:38 Dose: 650 mg Albuterol Sulfate (Ventolin 0.083% Nebulizer Soln -) 1 amp NEB Q4H PRN PRN Reason: SHORT OF BREATH/WHEEZING Last Admin: 05/30/17 17:27 Dose: 1 amp Aspirin (Ecotrin -) 81 mg PO DAILY [facility] Last Admin: 05/31/17 09:16 Dose: 81 mg Fluoxetine HCl (Prozac -) 10 mg PO DAILY [facility] Last Admin: 05/31/17 09:17 Dose: 10 mg Heparin Sodium (Porcine) (Heparin -) 1,000 unit IVPUSH PRN PRN PRN Reason: Heparin Heparin Sodium (Porcine) (Heparin -) 5,000 unit IVPUSH PRN PRN PRN Reason: Heparin Last Admin: 05/30/17 11:00 Dose: 5,000 unit Sodium Chloride (1/2 Normal Saline) 1,000 mls @ 75 mls/hr IV ASDIR [facility] Last Admin: 05/31/17 13:30 Dose: 75 mls/hr Heparin Sodium (Porcine) 25, (000 unit/ Sodium Chloride) 500 mls @ 20 mls/hr IV TITR [facility]; 1,000 UNIT/HR PRN Reason: Protocol Last Titration: 05/31/17 09:18 Dose: 1,150 unit/hr Ceftriaxone Sodium (Rocephin 2gm Ivpb (Pre-Docked)) 100 mls @ 200 mls/hr IVPB DAILY [facility] Last Admin: 05/31/17 09:17 Dose: 200 mls/hr Insulin Aspart (Novolog Vial Sliding Scale -) 1 vial SQ ACHS [facility] PRN Reason: Protocol Last Admin: 05/31/17 11:00 Dose: 6 units Insulin Detemir (Levemir Vial) 25 units SQ [facility] Memantine (Namenda -) 5 mg PO BID [facility] Last Admin: 05/31/17 09:16 Dose: 5 mg Metoprolol Tartrate (Lopressor Injection -) 5 mg IVPB Q6H PRN PRN Reason: SBP >120 Nifedipine (Procardia Xl -) 30 mg PO DAILY [facility] Last Admin: 05/31/17 09:16 Dose: 30 mg Ondansetron HCl (Zofran Injection) 4 mg IVPB Q6H PRN PRN Reason: NAUSEA AND/OR VOMITING Pantoprazole Sodium (Protonix -) 40 mg PO DAILY [facility] Last Admin: 05/31/17 09:16 Dose: 40 mg Prochlorperazine Maleate (Compazine -) 5 mg PO Q4H PRN PRN Reason: NAUSEA AND/OR VOMITING Rosuvastatin Calcium (Crestor -) 20 mg PO HS [facility] Last Admin: 05/30/17 22:07 Dose: 20 mg Valsartan (Diovan -) 80 mg PO DAILY [facility] Last Admin: 05/31/17 09:16 Dose: 80 mg - Objective Vital Signs: Vital Signs Temperature 97.7 F 05/31/17 16:00 Pulse Rate 71 05/31/17 16:00 Respiratory Rate 19 05/31/17 16:00 Blood Pressure 108/71 05/31/17 16:00 O2 Sat by Pulse Oximetry (%) 100 05/31/17 08:00 Constitutional: Yes: No Distress Neck: Yes: WNL Cardiovascular: Yes: Regular Rate and Rhythm, S1, S2 (No MRHG) Respiratory: Yes: CTA Bilaterally Gastrointestinal: Yes: Soft Edema: LLE: Trace, RLE: Trace Neurological: Yes: Alert (Non focal) Psychiatric: Yes: WNL Labs: CBC, BMP 05/31/17 05:15 05/31/17 05:15 INR, PTT INR 1.11 (0.82-1.09) 05/28/17 18:20 Assessment/Plan 76 year old female with a PMH of HTN. She presented to the ED with a change in mental status and an expressive aphasia. EKG showed sinus tachycardia at 101 BPM with LAD, PRWP across the anterior precordial leads, and NSSTTW changes. Initial Head CT was without acuter pathology. BP was elevated to 178/86 mmHg but reduced to 157/77 mmHg. 05/30/17 Rapid response called and found to be hypoxic with an O2 sat of 81 % on room air. Also found to have a fever to 103. ABX continued BNP 965 Given low BNP, no need for aggressive diuresis at this time Change in Mental Status, now improved Consider obtaining Carotid Dopplers Continue cardiac meds: Aspirin (Ecotrin -) 81 mg PO DAILY [facility] Last Admin: 05/31/17 09:16 Dose: 81 mg Metoprolol Tartrate (Lopressor Injection -) 5 mg IVPB Q6H PRN PRN Reason: SBP >120 Nifedipine (Procardia Xl -) 30 mg PO DAILY [facility] Last Admin: 05/31/17 09:16 Dose: 30 mg Rosuvastatin Calcium (Crestor -) 20 mg PO HS [facility] Last Admin: 05/30/17 22:07 Dose: 20 mg Valsartan (Diovan -) 80 mg PO DAILY [facility] Last Admin: 05/31/17 09:16 Dose: 80 mg Will follow with you.
--- NOTE | 2017-05-31 16:48 | PN ---
Progress Note, Physician History of Present Illness: Pt seen and examined at bedside. She is much more awake and alert today. - Current Medication List Current Medications: Active Medications Acetaminophen (Tylenol -) 650 mg PO Q6H PRN PRN Reason: FEVER OR PAIN Last Admin: 05/31/17 16:30 Dose: 650 mg Albuterol Sulfate (Ventolin 0.083% Nebulizer Soln -) 1 amp NEB Q4H PRN PRN Reason: SHORT OF BREATH/WHEEZING Last Admin: 05/30/17 17:27 Dose: 1 amp Aspirin (Ecotrin -) 81 mg PO DAILY [facility] Last Admin: 05/31/17 09:16 Dose: 81 mg Fluoxetine HCl (Prozac -) 10 mg PO DAILY [facility] Last Admin: 05/31/17 09:17 Dose: 10 mg Heparin Sodium (Porcine) (Heparin -) 1,000 unit IVPUSH PRN PRN PRN Reason: Heparin Heparin Sodium (Porcine) (Heparin -) 5,000 unit IVPUSH PRN PRN PRN Reason: Heparin Last Admin: 05/30/17 11:00 Dose: 5,000 unit Sodium Chloride (1/2 Normal Saline) 1,000 mls @ 75 mls/hr IV ASDIR [facility] Last Admin: 05/31/17 15:03 Dose: Not Given Heparin Sodium (Porcine) 25, (000 unit/ Sodium Chloride) 500 mls @ 20 mls/hr IV TITR [facility]; 1,000 UNIT/HR PRN Reason: Protocol Last Titration: 05/31/17 09:18 Dose: 1,150 unit/hr Ceftriaxone Sodium (Rocephin 2gm Ivpb (Pre-Docked)) 100 mls @ 200 mls/hr IVPB DAILY [facility] Last Admin: 05/31/17 09:17 Dose: 200 mls/hr Insulin Aspart (Novolog Vial Sliding Scale -) 1 vial SQ ACHS [facility] PRN Reason: Protocol Last Admin: 05/31/17 16:30 Dose: 4 units Insulin Detemir (Levemir Vial) 25 units SQ HS [facility] Memantine (Namenda -) 5 mg PO BID [facility] Last Admin: 05/31/17 09:16 Dose: 5 mg Metoprolol Tartrate (Lopressor Injection -) 5 mg IVPB Q6H PRN PRN Reason: SBP >120 Nifedipine (Procardia Xl -) 30 mg PO DAILY [facility] Last Admin: 05/31/17 09:16 Dose: 30 mg Ondansetron HCl (Zofran Injection) 4 mg IVPB Q6H PRN PRN Reason: NAUSEA AND/OR VOMITING Pantoprazole Sodium (Protonix -) 40 mg PO DAILY [facility] Last Admin: 05/31/17 09:16 Dose: 40 mg Prochlorperazine Maleate (Compazine -) 5 mg PO Q4H PRN PRN Reason: NAUSEA AND/OR VOMITING Rosuvastatin Calcium (Crestor -) 20 mg PO HS [facility] Last Admin: 05/30/17 22:07 Dose: 20 mg Valsartan (Diovan -) 80 mg PO DAILY [facility] Last Admin: 05/31/17 09:16 Dose: 80 mg - Objective Vital Signs: Vital Signs Temperature 97.7 F 05/31/17 16:00 Pulse Rate 71 05/31/17 16:00 Respiratory Rate 19 05/31/17 16:00 Blood Pressure 108/71 05/31/17 16:00 O2 Sat by Pulse Oximetry (%) 100 05/31/17 08:00 Constitutional: Yes: Calm Eyes: Yes: Conjunctiva Clear HENT: Yes: Atraumatic Neck: Yes: Supple Cardiovascular: Yes: S1, S2 Respiratory: Yes: CTA Bilaterally Gastrointestinal: Yes: Normal Bowel Sounds, Soft, Abdomen, Obese Genitourinary: Yes: Howard Present Edema: No Neurological: Yes: Oriented Psychiatric: Yes: Oriented Labs: CBC, BMP 05/31/17 05:15 05/31/17 05:15 INR, PTT INR 1.11 (0.82-1.09) 05/28/17 18:20 Problem List - Problems (1) Altered mental status Code(s): R41.82 - ALTERED MENTAL STATUS, UNSPECIFIED Qualifiers: Altered mental status type: unspecified Qualified Code(s): R41.82 - Altered mental status, unspecified (2) Hypercholesteremia Code(s): E78.00 - PURE HYPERCHOLESTEROLEMIA, UNSPECIFIED (3) Hyperglycemia Code(s): R73.9 - HYPERGLYCEMIA, UNSPECIFIED (4) Hypertension Code(s): I10 - ESSENTIAL (PRIMARY) HYPERTENSION Qualifiers: Hypertension type: essential hypertension Qualified Code(s): I10 - Essential (primary) hypertension (5) Hypoxemia Code(s): R09.02 - HYPOXEMIA (6) CKD (chronic kidney disease) Code(s): N18.9 - CHRONIC KIDNEY DISEASE, UNSPECIFIED Assessment/Plan Current Medications Generic Name Dose Route Start Last Admin Trade Name Freq PRN Reason Stop Dose Admin Acetaminophen 650 mg 05/30/17 03:00 05/31/17 16:30 Tylenol - PO 650 mg Q6H PRN Administration FEVER OR PAIN Albuterol Sulfate 1 amp 05/30/17 13:28 05/30/17 17:27 Ventolin 0.083% Nebulizer Soln - NEB 1 amp Q4H PRN Administration SHORT OF BREATH/WHEEZING Aspirin 81 mg 05/30/17 10:00 05/31/17 09:16 Ecotrin - PO 81 mg DAILY [facility] Administration Fluoxetine HCl 10 mg 05/30/17 10:00 05/31/17 09:17 Prozac - PO 10 mg DAILY [facility] Administration Heparin Sodium (Porcine) 1,000 unit 05/30/17 00:41 Heparin - IVPUSH PRN PRN Heparin Heparin Sodium (Porcine) 5,000 unit 05/30/17 00:41 05/30/17 11:00 Heparin - IVPUSH 5,000 unit PRN PRN Administration Heparin Sodium Chloride 1,000 mls @ 75 mls/hr 05/29/17 15:03 05/31/17 15:03 1/2 Normal Saline IV Not Given ASDIR [facility] Heparin Sodium (Porcine) 25, 500 mls @ 20 mls/hr 05/30/17 00:45 05/31/17 09:18 000 unit/ Sodium Chloride IV 1,150 unit/hr TITR [facility] Titration Protocol 1,000 UNIT/HR Ceftriaxone Sodium 100 mls @ 200 mls/hr 05/30/17 10:00 05/31/17 09:17 Rocephin 2gm Ivpb (Pre-Docked) IVPB 200 mls/hr DAILY [facility] Administration Insulin Aspart 1 vial 05/30/17 07:00 05/31/17 16:30 Novolog Vial Sliding Scale - SQ 4 units ACHS [facility] Administration Protocol Insulin Detemir 25 units 05/31/17 22:00 Levemir Vial SQ HS [facility] Memantine 5 mg 05/30/17 10:00 05/31/17 09:16 Namenda - PO 5 mg BID [facility] Administration Metoprolol Tartrate 5 mg 05/30/17 03:00 Lopressor Injection - IVPB Q6H PRN SBP >120 Nifedipine 30 mg 05/30/17 10:00 05/31/17 09:16 Procardia Xl - PO 30 mg DAILY [facility] Administration Ondansetron HCl 4 mg 05/30/17 03:00 Zofran Injection IVPB Q6H PRN NAUSEA AND/OR VOMITING Pantoprazole Sodium 40 mg 05/30/17 15:00 05/31/17 09:16 Protonix - PO 40 mg DAILY [facility] Administration Prochlorperazine Maleate 5 mg 05/30/17 03:00 Compazine - PO Q4H PRN NAUSEA AND/OR VOMITING Rosuvastatin Calcium 20 mg 05/30/17 22:00 05/30/17 22:07 Crestor - PO 20 mg HS [facility] Administration Valsartan 80 mg 05/30/17 10:00 05/31/17 09:16 Diovan - PO 80 mg DAILY [facility] Administration Impression 1. CKD 2. DM 3. HTN 4. altered mental status 5. vomiting 6. r/p sepsis 7. fever Plan - repeat bmp in am - cont with valsartan - follow cultures - ID input appreciated - can d/c howard - gentle hydration - hold sedatives - discussed with ICU team Dr Salmon
[2017-05-31] MEDS ORDERED: PROCHLORPERAZINE MALEATE 5 MG TABLET PO PRN (19:15)
[2017-05-31] MEDS ORDERED: HEPARIN NA (PORCINE) 5,000 UNITS/ML 1ML VIAL IVPUSH PRN ×4 (19:15)
[2017-05-31] MEDS ORDERED: ONDANSETRON 4 MG/2 ML VIAL IVPB PRN (19:15)
[2017-05-31] MEDS ORDERED: SODIUM CHLORIDE 0.45% 1,000 ML IV SCH (19:15)
[2017-05-31] MEDS ORDERED: METOPROLOL TARTRATE 5 MG/5 ML VIAL IVPB PRN (19:15)
[2017-05-31] MEDS: ROSUVASTATIN CA 20 MG TABLET (FP) PO SCH (21:20)
[2017-05-31] MEDS: INSULIN DETEMIR 100 UNITS/ML MDV SQ SCH (21:24)
[2017-05-31] MEDS ORDERED: INSULIN DETEMIR 100 UNITS/ML MDV SQ SCH (22:00)
[2017-05-31] MEDS: ALBUTEROL SO4 0.083% IH SOL 2.5 MG/3 ML VIAL.NEB. NEB PRN (23:33)
[2017-06-01] MEDS: INSULIN SLIDING SCALE (NOVOLOG) 1 VIAL SQ SCH ×4 (06:29→21:37)
[2017-06-01] MEDS: ALBUTEROL SO4 0.083% IH SOL 2.5 MG/3 ML VIAL.NEB. NEB PRN (06:52)
[2017-06-01 07:52] LABS: MCH 28.1 pg (25.7-33.7); MCHC 32.8 g/dl (32.0-36.0); MEAN CELL VOLUME 85.8 fl (80-96); MEAN PLT VOLUME 10.5 fl (7.5-11.1); PLATELET COUNT 140 K/MM3 (134-434); RDW 15.2 % (11.6-15.6); WHITE BLOOD COUNT 4.8 K/mm3 (4.0-10.0)
--- NOTE | 2017-06-01 08:10 | PN ---
Progress Note (short form) - Note Progress Note: HPI 76 year old female history of DM, HTN, Alzheimer disease , brought to hospital for mental status change adn fall. Inital Ct head was unremarkable.She has high grade fever ( upto 103 f at hospital), later she became hypoxic and was started on iv heparin on presumptive diagnosis of PE. Today she looks very bright , and sitting in chair , able talk and was afebrile over night Physical Examination temp 97 and rest of vital stable alert and bright and able to follow command , Denies any headhace no neck stiffness moving all extremity ct head was unremarkable Assessment-Delirium due to medical condition ( ? PE and Fever ), as she has history of Dementia , no improving. 2. Less likely to be Meningitis ( no headhace, neck is supple) now has been afebrile Plan-- mri of brain can be obtained if possible - would see prn and call industrial relations worker team if any issue , over the weekend. Jatin Greer MD Neurology Attending
[2017-06-01] MEDS: ACETAMINOPHEN 325 MG TABLET (FP) PO PRN ×3 (08:24→21:18)
[2017-06-01 08:27] LABS: ALBUMIN 2.9 g/dl (3.4-5.0); CALCIUM 8.6 mg/dL (8.5-10.1); GLUCOSE,RANDOM 195 mg/dL (74-106); MAGNESIUM 2.3 mg/dL (1.8-2.4)
[2017-06-01 08:32] LABS: ALK PHOS 61 U/L (45-117); ANION GAP 11 (8-16); BILIRUBIN,TOTAL 0.6 mg/dL (0.2-1.0); CO2 27 mmol/L (21-32); CREATININE 1.8 mg/dL (0.55-1.02); PHOSPHOROUS 2.6 mg/dL (2.5-4.9); SGOT/AST 25 U/L (15-37); SGPT/ALT 30 U/L (12-78); TOT PROT 6.4 g/dl (6.4-8.2)
[2017-06-01] MEDS ORDERED: PT OWN MED DRAWER 7, Y5N ONE (09:33)
[2017-06-01] MEDS ORDERED: HEPARIN INFUSION - 500 ML IVPB ONE (09:37)
[2017-06-01] MEDS: HEPARIN - 25,000 UNIT in SODIUM CHLORIDE 495 ML IV SCH ×2 (09:49→19:15)
[2017-06-01] MEDS: PANTOPRAZOLE 40 MG TABLET (FP) PO SCH (09:50)
[2017-06-01] MEDS: ASPIRIN COATED 81 MG TABLET.EC PO SCH (09:50)
[2017-06-01] MEDS: VALSARTAN 80 MG TABLET (UD) PO SCH (09:50)
[2017-06-01] MEDS: MEMANTINE HCL 5 MG TABLET (UD) PO SCH ×2 (09:50→21:19)
[2017-06-01] MEDS: FLUoxetine HCL 10 MG CAPSULE (FP) PO SCH (09:50)
[2017-06-01] MEDS: NIFEdipine E.R. 30 MG TABLET (FP) PO SCH (09:50)
[2017-06-01] MEDS ORDERED: CEFTRIAXONE 100 ML IVPB SCH (10:00)
--- NOTE | 2017-06-01 10:54 | PN ---
Progress Note, Physician History of Present Illness: pulmonary alert,oob-chair,-sob - Current Medication List Current Medications: Active Medications Acetaminophen (Tylenol -) 650 mg PO Q6H PRN PRN Reason: FEVER OR PAIN Last Admin: 06/01/17 08:24 Dose: 650 mg Albuterol Sulfate (Ventolin 0.083% Nebulizer Soln -) 1 amp NEB Q4H PRN PRN Reason: SHORT OF BREATH/WHEEZING Last Admin: 06/01/17 06:52 Dose: 1 amp Aspirin (Ecotrin -) 81 mg PO DAILY [facility] Last Admin: 06/01/17 09:50 Dose: 81 mg Fluoxetine HCl (Prozac -) 10 mg PO DAILY [facility] Last Admin: 06/01/17 09:50 Dose: 10 mg Heparin Sodium (Porcine) (Heparin -) 1,000 unit IVPUSH PRN PRN PRN Reason: Heparin Heparin Sodium (Porcine) (Heparin -) 5,000 unit IVPUSH PRN PRN PRN Reason: Heparin Sodium Chloride (1/2 Normal Saline) 1,000 mls @ 75 mls/hr IV ASDIR [facility] Last Admin: 05/31/17 21:21 Dose: 75 mls/hr Ceftriaxone Sodium (Rocephin 2gm Ivpb (Pre-Docked)) 100 mls @ 200 mls/hr IVPB DAILY [facility] Last Admin: 06/01/17 09:50 Dose: 200 mls/hr Heparin Sodium (Porcine) 25, (000 unit/ Sodium Chloride) 500 mls @ 20 mls/hr IV TITR [facility]; 1,000 UNIT/HR PRN Reason: Protocol Last Admin: 06/01/17 09:49 Dose: 23 mls/hr Insulin Aspart (Novolog Vial Sliding Scale -) 1 vial SQ ACHS [facility] PRN Reason: Protocol Last Admin: 06/01/17 06:29 Dose: 2 units Insulin Detemir (Levemir Vial) 25 units SQ HS [facility] Last Admin: 05/31/17 21:24 Dose: 25 units Memantine (Namenda -) 5 mg PO BID [facility] Last Admin: 06/01/17 09:50 Dose: 5 mg Metoprolol Tartrate (Lopressor Injection -) 5 mg IVPB Q6H PRN PRN Reason: SBP >120 Nifedipine (Procardia Xl -) 30 mg PO DAILY [facility] Last Admin: 06/01/17 09:50 Dose: 30 mg Ondansetron HCl (Zofran Injection) 4 mg IVPB Q6H PRN PRN Reason: NAUSEA AND/OR VOMITING Pantoprazole Sodium (Protonix -) 40 mg PO DAILY [facility] Last Admin: 06/01/17 09:50 Dose: 40 mg Prochlorperazine Maleate (Compazine -) 5 mg PO Q4H PRN PRN Reason: NAUSEA AND/OR VOMITING Rosuvastatin Calcium (Crestor -) 20 mg PO HS [facility] Last Admin: 05/31/17 21:20 Dose: 20 mg Valsartan (Diovan -) 80 mg PO DAILY [facility] Last Admin: 06/01/17 09:50 Dose: 80 mg - Objective Vital Signs: Vital Signs Temperature 97.0 F L 06/01/17 05:42 Pulse Rate 84 06/01/17 05:42 Respiratory Rate 21 06/01/17 05:42 Blood Pressure 101/55 06/01/17 05:42 O2 Sat by Pulse Oximetry (%) 98 05/31/17 21:00 Constitutional: Yes: Well Nourished, Calm Eyes: Yes: WNL, Other Neck: Yes: Supple Cardiovascular: Yes: Regular Rate and Rhythm, S1, S2 Respiratory: Yes: Diminished Gastrointestinal: Yes: Normal Bowel Sounds, Soft Extremities: Yes: WNL Edema: No Labs: CBC, BMP 06/01/17 05:50 06/01/17 05:50 INR, PTT INR 1.11 (0.82-1.09) 05/28/17 18:20 Problem List - Problems (1) Altered mental status Code(s): R41.82 - ALTERED MENTAL STATUS, UNSPECIFIED Qualifiers: Altered mental status type: unspecified Qualified Code(s): R41.82 - Altered mental status, unspecified (2) CKD (chronic kidney disease) Code(s): N18.9 - CHRONIC KIDNEY DISEASE, UNSPECIFIED (3) Fever Code(s): R50.9 - FEVER, UNSPECIFIED (4) Hypercholesteremia Code(s): E78.00 - PURE HYPERCHOLESTEROLEMIA, UNSPECIFIED (5) Hypertension Code(s): I10 - ESSENTIAL (PRIMARY) HYPERTENSION Qualifiers: Hypertension type: essential hypertension Qualified Code(s): I10 - Essential (primary) hypertension (6) Hypoxemia Code(s): R09.02 - HYPOXEMIA Assessment/Plan IMP: Fever -> Etiology to be determined currently afebrile (?) Viral Illness Bibasilar atelectasis -> Hypoxemia Do not have a high clinical suspicion of VTE Do not suspect PNA Thoracic spine abnormality noted on CT imaging -> needs further elucidation Morbid obesity Suspected OSAS (?) confusion improving DM HTN PLAN: IVF ABX per ID O2 as needed replete lytes Will need full sleep workup after discharge DR QUIJANO
[2017-06-01] MEDS ORDERED: INSULIN (NOVOLOG) ASPART 100 UNITS/ML 10ML VIAL ONE ×3 (11:47→21:14)
--- NOTE | 2017-06-01 11:49 | PN ---
Progress Note, POLITICAL SCIENCE RESEARCH ASSISTANT - Note Progress Note: Selected Entries 05/31/17 05/31/17 05/31/17 02:00 06:00 08:00 Breakfast 25% Lunch 50% Temperature 97.9 F 97.9 F 98.3 F 05/31/17 05/31/17 05/31/17 10:00 12:00 14:00 Breakfast Lunch Temperature 98.6 F 98.3 F 97.6 F 05/31/17 05/31/17 05/31/17 16:00 18:00 18:14 Breakfast Lunch Temperature 97.7 F 98.1 F 98.1 F 05/31/17 06/01/17 06/01/17 21:18 02:00 05:42 Breakfast Lunch Temperature 98.2 F 97.9 F 97.0 F L Laboratory Tests 06/01/17 05:50 WBC 4.8 Spontaneous recovery of language deficits. Pt is verbal, fluent, appropriate, o x 3 (,Trump,76). 3 oz water test (-). Pt is on clear liquids. Diet upgrade per PMD/GI. No swallowing deficits suspected.
[2017-06-01] MEDS ORDERED: POTASSIUM CHLORIDE TABS 20 MEQ TABLET.ER (FP) PO ONE (12:15)
--- NOTE | 2017-06-01 12:22 | PN ---
Progress Note, Physician Chief Complaint: awake alert no distress on heparin drip - Current Medication List Current Medications: Active Medications Acetaminophen (Tylenol -) 650 mg PO Q6H PRN PRN Reason: FEVER OR PAIN Last Admin: 06/01/17 08:24 Dose: 650 mg Albuterol Sulfate (Ventolin 0.083% Nebulizer Soln -) 1 amp NEB Q4H PRN PRN Reason: SHORT OF BREATH/WHEEZING Last Admin: 06/01/17 06:52 Dose: 1 amp Aspirin (Ecotrin -) 81 mg PO DAILY [facility] Last Admin: 06/01/17 09:50 Dose: 81 mg Fluoxetine HCl (Prozac -) 10 mg PO DAILY [facility] Last Admin: 06/01/17 09:50 Dose: 10 mg Heparin Sodium (Porcine) (Heparin -) 1,000 unit IVPUSH PRN PRN PRN Reason: Heparin Heparin Sodium (Porcine) (Heparin -) 5,000 unit IVPUSH PRN PRN PRN Reason: Heparin Sodium Chloride (1/2 Normal Saline) 1,000 mls @ 75 mls/hr IV ASDIR [facility] Last Admin: 05/31/17 21:21 Dose: 75 mls/hr Ceftriaxone Sodium (Rocephin 2gm Ivpb (Pre-Docked)) 100 mls @ 200 mls/hr IVPB DAILY [facility] Last Admin: 06/01/17 09:50 Dose: 200 mls/hr Heparin Sodium (Porcine) 25, (000 unit/ Sodium Chloride) 500 mls @ 20 mls/hr IV TITR [facility]; 1,000 UNIT/HR PRN Reason: Protocol Last Admin: 06/01/17 09:49 Dose: 23 mls/hr Insulin Aspart (Novolog Vial Sliding Scale -) 1 vial SQ ACHS [facility] PRN Reason: Protocol Last Admin: 06/01/17 11:49 Dose: 2 units Insulin Detemir (Levemir Vial) 25 units SQ HS [facility] Last Admin: 05/31/17 21:24 Dose: 25 units Memantine (Namenda -) 5 mg PO BID [facility] Last Admin: 06/01/17 09:50 Dose: 5 mg Metoprolol Tartrate (Lopressor Injection -) 5 mg IVPB Q6H PRN PRN Reason: SBP >120 Nifedipine (Procardia Xl -) 30 mg PO DAILY [facility] Last Admin: 08/11/17 09:50 Dose: 30 mg Ondansetron HCl (Zofran Injection) 4 mg IVPB Q6H PRN PRN Reason: NAUSEA AND/OR VOMITING Pantoprazole Sodium (Protonix -) 40 mg PO DAILY [facility] Last Admin: 06/01/17 09:50 Dose: 40 mg Prochlorperazine Maleate (Compazine -) 5 mg PO Q4H PRN PRN Reason: NAUSEA AND/OR VOMITING Rosuvastatin Calcium (Crestor -) 20 mg PO HS [facility] Last Admin: 05/31/17 21:20 Dose: 20 mg Valsartan (Diovan -) 80 mg PO DAILY [facility] Last Admin: 06/01/17 09:50 Dose: 80 mg - Objective Vital Signs: Vital Signs Temperature 97.0 F L 06/01/17 05:42 Pulse Rate 84 06/01/17 05:42 Respiratory Rate 21 06/01/17 05:42 Blood Pressure 101/55 06/01/17 05:42 O2 Sat by Pulse Oximetry (%) 98 05/31/17 21:00 Constitutional: Yes: Calm Cardiovascular: Yes: Regular Rate and Rhythm, S1, S2 Respiratory: Yes: CTA Bilaterally, Diminished (at bases) Gastrointestinal: Yes: Normal Bowel Sounds, Soft Neurological: Yes: Alert, Oriented Labs: CBC, BMP 06/01/17 05:50 06/01/17 05:50 INR, PTT INR 1.11 (0.82-1.09) 05/28/17 18:20 Problem List - Problems (1) Altered mental status Assessment/Plan: ct head negative improving mental status possible toxic metabolic neuro FU appreciated carotid doppler ordered r/o stenosis CT scan of abdomen /pelvis pendng urine culture negative will stop rocephin brain MRI pending Code(s): R41.82 - ALTERED MENTAL STATUS, UNSPECIFIED Qualifiers: Altered mental status type: unspecified Qualified Code(s): R41.82 - Altered mental status, unspecified (2) CKD (chronic kidney disease) Assessment/Plan: renal evaluation Code(s): N18.9 - CHRONIC KIDNEY DISEASE, UNSPECIFIED (3) Diabetes Assessment/Plan: on levemir hga1c Code(s): E11.9 - TYPE 2 DIABETES MELLITUS WITHOUT COMPLICATIONS Qualifiers: Diabetes mellitus type: type 2 (4) Hypoxemia Assessment/Plan: on heparin drip pulm on board given elevated cr cannot do VQ scan Code(s): R09.02 - HYPOXEMIA (5) Hypertension Assessment/Plan: on metoprolol prn procardio and diovan asa and statin for secondary prevention Code(s): I10 - ESSENTIAL (PRIMARY) HYPERTENSION Qualifiers: Hypertension type: essential hypertension Qualified Code(s): I10 - Essential (primary) hypertension
--- NOTE | 2017-06-01 14:31 | PN ---
Progress Note, Physician History of Present Illness: Pt seen and examined at bedside. She is out of bed to chair. She denies shortness of breath. - Current Medication List Current Medications: Active Medications Acetaminophen (Tylenol -) 650 mg PO Q6H PRN PRN Reason: FEVER OR PAIN Last Admin: 06/01/17 08:24 Dose: 650 mg Albuterol Sulfate (Ventolin 0.083% Nebulizer Soln -) 1 amp NEB Q4H PRN PRN Reason: SHORT OF BREATH/WHEEZING Last Admin: 06/01/17 06:52 Dose: 1 amp Aspirin (Ecotrin -) 81 mg PO DAILY [facility] Last Admin: 06/01/17 09:50 Dose: 81 mg Fluoxetine HCl (Prozac -) 10 mg PO DAILY [facility] Last Admin: 06/01/17 09:50 Dose: 10 mg Heparin Sodium (Porcine) (Heparin -) 1,000 unit IVPUSH PRN PRN PRN Reason: Heparin Heparin Sodium (Porcine) (Heparin -) 5,000 unit IVPUSH PRN PRN PRN Reason: Heparin Sodium Chloride (1/2 Normal Saline) 1,000 mls @ 75 mls/hr IV ASDIR [facility] Last Admin: 05/31/17 21:21 Dose: 75 mls/hr Heparin Sodium (Porcine) 25, (000 unit/ Sodium Chloride) 500 mls @ 20 mls/hr IV TITR [facility]; 1,000 UNIT/HR PRN Reason: Protocol Last Admin: 06/01/17 09:49 Dose: 23 mls/hr Insulin Aspart (Novolog Vial Sliding Scale -) 1 vial SQ ACHS [facility] PRN Reason: Protocol Last Admin: 06/01/17 11:49 Dose: 2 units Insulin Detemir (Levemir Vial) 25 units SQ HS [facility] Last Admin: 05/31/17 21:24 Dose: 25 units Memantine (Namenda -) 5 mg PO BID [facility] Last Admin: 06/01/17 09:50 Dose: 5 mg Metoprolol Tartrate (Lopressor Injection -) 5 mg IVPB Q6H PRN PRN Reason: SBP >120 Nifedipine (Procardia Xl -) 30 mg PO DAILY [facility] Last Admin: 06/01/17 09:50 Dose: 30 mg Ondansetron HCl (Zofran Injection) 4 mg IVPB Q6H PRN PRN Reason: NAUSEA AND/OR VOMITING Pantoprazole Sodium (Protonix -) 40 mg PO DAILY [facility] Last Admin: 06/01/17 09:50 Dose: 40 mg Prochlorperazine Maleate (Compazine -) 5 mg PO Q4H PRN PRN Reason: NAUSEA AND/OR VOMITING Rosuvastatin Calcium (Crestor -) 20 mg PO HS [facility] Last Admin: 05/31/17 21:20 Dose: 20 mg Valsartan (Diovan -) 80 mg PO DAILY [facility] Last Admin: 06/01/17 09:50 Dose: 80 mg - Objective Vital Signs: Vital Signs Temperature 98.7 F 06/01/17 10:00 Pulse Rate 93 H 06/01/17 10:00 Respiratory Rate 20 06/01/17 10:00 Blood Pressure 155/63 06/01/17 10:00 O2 Sat by Pulse Oximetry (%) 93 L 06/01/17 09:00 Constitutional: Yes: Calm Eyes: Yes: Conjunctiva Clear HENT: Yes: Atraumatic Neck: Yes: Supple Cardiovascular: Yes: S1, S2 Respiratory: Yes: CTA Bilaterally Gastrointestinal: Yes: Soft, Abdomen, Obese Genitourinary: Yes: WNL Musculoskeletal: Yes: WNL Edema: No Neurological: Yes: Oriented Psychiatric: Yes: Oriented Labs: CBC, BMP 06/01/17 05:50 06/01/17 05:50 INR, PTT INR 1.11 (0.82-1.09) 05/28/17 18:20 Problem List - Problems (1) Altered mental status Code(s): R41.82 - ALTERED MENTAL STATUS, UNSPECIFIED Qualifiers: Altered mental status type: unspecified Qualified Code(s): R41.82 - Altered mental status, unspecified (2) Hypercholesteremia Code(s): E78.00 - PURE HYPERCHOLESTEROLEMIA, UNSPECIFIED (3) Hyperglycemia Code(s): R73.9 - HYPERGLYCEMIA, UNSPECIFIED (4) Hypertension Code(s): I10 - ESSENTIAL (PRIMARY) HYPERTENSION Qualifiers: Hypertension type: essential hypertension Qualified Code(s): I10 - Essential (primary) hypertension (5) Hypoxemia Code(s): R09.02 - HYPOXEMIA (6) CKD (chronic kidney disease) Code(s): N18.9 - CHRONIC KIDNEY DISEASE, UNSPECIFIED Assessment/Plan Current Medications Generic Name Dose Route Start Last Admin Trade Name Freq PRN Reason Stop Dose Admin Acetaminophen 650 mg 05/31/17 19:15 06/01/17 08:24 Tylenol - PO 650 mg Q6H PRN Administration FEVER OR PAIN Albuterol Sulfate 1 amp 05/31/17 19:15 06/01/17 06:52 Ventolin 0.083% Nebulizer Soln - NEB 1 amp Q4H PRN Administration SHORT OF BREATH/WHEEZING Aspirin 81 mg 06/01/17 10:00 06/01/17 09:50 Ecotrin - PO 81 mg DAILY [facility] Administration Fluoxetine HCl 10 mg 06/01/17 10:00 06/01/17 09:50 Prozac - PO 10 mg DAILY [facility] Administration Heparin Sodium (Porcine) 1,000 unit 05/31/17 19:15 Heparin - IVPUSH PRN PRN Heparin Heparin Sodium (Porcine) 5,000 unit 05/31/17 19:15 Heparin - IVPUSH PRN PRN Heparin Sodium Chloride 1,000 mls @ 75 mls/hr 05/31/17 19:15 05/31/17 21:21 1/2 Normal Saline IV 75 mls/hr ASDIR [facility] Administration Heparin Sodium (Porcine) 25, 500 mls @ 20 mls/hr 05/31/17 19:15 06/01/17 09:49 000 unit/ Sodium Chloride IV 23 mls/hr TITR [facility] Administration Protocol 1,000 UNIT/HR Insulin Aspart 1 vial 05/31/17 22:00 06/01/17 11:49 Novolog Vial Sliding Scale - SQ 2 units ACHS [facility] Administration Protocol Insulin Detemir 25 units 05/31/17 22:00 05/31/17 21:24 Levemir Vial SQ 25 units HS [facility] Administration Memantine 5 mg 05/31/17 22:00 06/01/17 09:50 Namenda - PO 5 mg BID [facility] Administration Metoprolol Tartrate 5 mg 05/31/17 19:15 Lopressor Injection - IVPB Q6H PRN SBP >120 Nifedipine 30 mg 06/01/17 10:00 06/01/17 09:50 Procardia Xl - PO 30 mg DAILY [facility] Administration Ondansetron HCl 4 mg 05/31/17 19:15 Zofran Injection IVPB Q6H PRN NAUSEA AND/OR VOMITING Pantoprazole Sodium 40 mg 06/01/17 10:00 06/01/17 09:50 Protonix - PO 40 mg DAILY [facility] Administration Prochlorperazine Maleate 5 mg 05/31/17 19:15 Compazine - PO Q4H PRN NAUSEA AND/OR VOMITING Rosuvastatin Calcium 20 mg 05/31/17 22:00 05/31/17 21:20 Crestor - PO 20 mg HS [facility] Administration Valsartan 80 mg 06/01/17 10:00 06/01/17 09:50 Diovan - PO 80 mg DAILY [facility] Administration Impression 1. CKD 2. DM 3. HTN 4. altered mental status 5. vomiting 6. r/p sepsis 7. fever Plan - renal function stabilizing - decrease rate of fluids - repeat labs in am - replace potassium - cont to follow cultures - avoid sedatives - will follow Dr Salmon
[2017-06-01] MEDS ORDERED: SODIUM CHLORIDE 0.45% 1,000 ML IV SCH (14:45)
--- NOTE | 2017-06-01 15:03 | PN ---
Progress Note, Physician Chief Complaint: Afebrile NAD - Current Medication List Current Medications: Active Medications Acetaminophen (Tylenol -) 650 mg PO Q6H PRN PRN Reason: FEVER OR PAIN Last Admin: 06/01/17 08:24 Dose: 650 mg Albuterol Sulfate (Ventolin 0.083% Nebulizer Soln -) 1 amp NEB Q4H PRN PRN Reason: SHORT OF BREATH/WHEEZING Last Admin: 06/01/17 06:52 Dose: 1 amp Aspirin (Ecotrin -) 81 mg PO DAILY [facility] Last Admin: 06/01/17 09:50 Dose: 81 mg Fluoxetine HCl (Prozac -) 10 mg PO DAILY [facility] Last Admin: 06/01/17 09:50 Dose: 10 mg Heparin Sodium (Porcine) (Heparin -) 1,000 unit IVPUSH PRN PRN PRN Reason: Heparin Heparin Sodium (Porcine) (Heparin -) 5,000 unit IVPUSH PRN PRN PRN Reason: Heparin Heparin Sodium (Porcine) 25, (000 unit/ Sodium Chloride) 500 mls @ 20 mls/hr IV TITR [facility]; 1,000 UNIT/HR PRN Reason: Protocol Last Admin: 06/01/17 09:49 Dose: 23 mls/hr Sodium Chloride (1/2 Normal Saline) 1,000 mls @ 40 mls/hr IV ASDIR [facility] Insulin Aspart (Novolog Vial Sliding Scale -) 1 vial SQ ACHS [facility] PRN Reason: Protocol Last Admin: 06/01/17 11:49 Dose: 2 units Insulin Detemir (Levemir Vial) 25 units SQ HS [facility] Last Admin: 05/31/17 21:24 Dose: 25 units Memantine (Namenda -) 5 mg PO BID [facility] Last Admin: 06/01/17 09:50 Dose: 5 mg Metoprolol Tartrate (Lopressor Injection -) 5 mg IVPB Q6H PRN PRN Reason: SBP >120 Nifedipine (Procardia Xl -) 30 mg PO DAILY [facility] Last Admin: 06/01/17 09:50 Dose: 30 mg Ondansetron HCl (Zofran Injection) 4 mg IVPB Q6H PRN PRN Reason: NAUSEA AND/OR VOMITING Pantoprazole Sodium (Protonix -) 40 mg PO DAILY [facility] Last Admin: 06/01/17 09:50 Dose: 40 mg Prochlorperazine Maleate (Compazine -) 5 mg PO Q4H PRN PRN Reason: NAUSEA AND/OR VOMITING Rosuvastatin Calcium (Crestor -) 20 mg PO HS [facility] Last Admin: 05/31/17 21:20 Dose: 20 mg Valsartan (Diovan -) 80 mg PO DAILY [facility] Last Admin: 06/01/17 09:50 Dose: 80 mg - Objective Vital Signs: Vital Signs Temperature 98.7 F 06/01/17 10:00 Pulse Rate 93 H 06/01/17 10:00 Respiratory Rate 20 06/01/17 10:00 Blood Pressure 155/63 06/01/17 10:00 O2 Sat by Pulse Oximetry (%) 93 L 06/01/17 09:00 Constitutional: Yes: Obese HENT: Yes: WNL, Atraumatic Neck: Yes: WNL, Supple Cardiovascular: Yes: Regular Rate and Rhythm, S1, S2 Respiratory: Yes: WNL, Regular, CTA Bilaterally Gastrointestinal: Yes: WNL, Normal Bowel Sounds, Soft. No: Tenderness Labs: CBC, BMP 06/01/17 05:50 06/01/17 05:50 INR, PTT INR 1.11 (0.82-1.09) 05/28/17 18:20 Problem List - Problems (1) Altered mental status Code(s): R41.82 - ALTERED MENTAL STATUS, UNSPECIFIED Qualifiers: Altered mental status type: unspecified Qualified Code(s): R41.82 - Altered mental status, unspecified (2) Fever Code(s): R50.9 - FEVER, UNSPECIFIED (3) Diabetes Code(s): E11.9 - TYPE 2 DIABETES MELLITUS WITHOUT COMPLICATIONS Qualifiers: Diabetes mellitus type: type 2 (4) Sepsis Code(s): A41.9 - SEPSIS, UNSPECIFIED ORGANISM Assessment/Plan Microbiology 05/30/17 14:40 Nasopharyngeal Swab Influenza Types A,B Antigen (JENNIFER) - Final 05/30/17 14:40 Nasopharyngeal Swab - Final 05/30/17 02:00 Urine - Urine Kumar Urine Culture - Final NO GROWTH OBTAINED 05/29/17 16:45 Blood - Peripheral Venous Blood Culture - Preliminary NO GROWTH OBTAINED AFTER 48 HOURS, INCUBATION TO CONTINUE FOR 3 DAYS. 05/29/17 16:40 Blood - Peripheral Venous Blood Culture - Preliminary NO GROWTH OBTAINED AFTER 48 HOURS, INCUBATION TO CONTINUE FOR 3 DAYS. Laboratory Tests 06/01/17 06/01/17 05:50 05:50 WBC 4.8 Hgb 12.3 Plt Count 140 BUN 29 H Creatinine 1.8 H Assesment Fever resolved negative cultures Plan Observe off antibiotic Chari VACA
--- NOTE | 2017-06-01 15:15 | PN ---
Progress Note, Physician Chief Complaint: Presently resting comfortably History of Present Illness: This is a 76 year old female with a PMH of HTN. She presented to the ED with a change in mental status and an expressive aphasia. EKG showed sinus tachycardia at 101 BPM with LAD, PRWP across the anterior precordial leads, and NSSTTW changes. Initial Head CT was without acuter pathology. BP was elevated to 178/86 mmHg but reduced to 157/77 mmHg. 05/30/17 Rapid response called and found to be hypoxic with an O2 sat of 81 % on room air. Also found to have a fever to 103. Echocardiogram 05/30/17 Normal LV function. mild LVH, mild MR, 06/01/17 Continues to clinically improved, sitting in a chair in no distress. - Current Medication List Current Medications: Active Medications Acetaminophen (Tylenol -) 650 mg PO Q6H PRN PRN Reason: FEVER OR PAIN Last Admin: 06/01/17 08:24 Dose: 650 mg Albuterol Sulfate (Ventolin 0.083% Nebulizer Soln -) 1 amp NEB Q4H PRN PRN Reason: SHORT OF BREATH/WHEEZING Last Admin: 06/01/17 06:52 Dose: 1 amp Aspirin (Ecotrin -) 81 mg PO DAILY [facility] Last Admin: 06/01/17 09:50 Dose: 81 mg Fluoxetine HCl (Prozac -) 10 mg PO DAILY [facility] Last Admin: 06/01/17 09:50 Dose: 10 mg Heparin Sodium (Porcine) (Heparin -) 1,000 unit IVPUSH PRN PRN PRN Reason: Heparin Heparin Sodium (Porcine) (Heparin -) 5,000 unit IVPUSH PRN PRN PRN Reason: Heparin Heparin Sodium (Porcine) 25, (000 unit/ Sodium Chloride) 500 mls @ 20 mls/hr IV TITR [facility]; 1,000 UNIT/HR PRN Reason: Protocol Last Admin: 06/01/17 09:49 Dose: 23 mls/hr Sodium Chloride (1/2 Normal Saline) 1,000 mls @ 40 mls/hr IV ASDIR [facility] Insulin Aspart (Novolog Vial Sliding Scale -) 1 vial SQ ACHS [facility] PRN Reason: Protocol Last Admin: 06/01/17 11:49 Dose: 2 units Insulin Detemir (Levemir Vial) 25 units SQ HS [facility] Last Admin: 05/31/17 21:24 Dose: 25 units Memantine (Namenda -) 5 mg PO BID [facility] Last Admin: 06/01/17 09:50 Dose: 5 mg Metoprolol Tartrate (Lopressor Injection -) 5 mg IVPB Q6H PRN PRN Reason: SBP >120 Nifedipine (Procardia Xl -) 30 mg PO DAILY [facility] Last Admin: 06/01/17 09:50 Dose: 30 mg Ondansetron HCl (Zofran Injection) 4 mg IVPB Q6H PRN PRN Reason: NAUSEA AND/OR VOMITING Pantoprazole Sodium (Protonix -) 40 mg PO DAILY [facility] Last Admin: 06/01/17 09:50 Dose: 40 mg Prochlorperazine Maleate (Compazine -) 5 mg PO Q4H PRN PRN Reason: NAUSEA AND/OR VOMITING Rosuvastatin Calcium (Crestor -) 20 mg PO HS [facility] Last Admin: 05/31/17 21:20 Dose: 20 mg Valsartan (Diovan -) 80 mg PO DAILY [facility] Last Admin: 06/01/17 09:50 Dose: 80 mg - Objective Vital Signs: Vital Signs Temperature 98.7 F 06/01/17 10:00 Pulse Rate 93 H 06/01/17 10:00 Respiratory Rate 20 06/01/17 10:00 Blood Pressure 155/63 06/01/17 10:00 O2 Sat by Pulse Oximetry (%) 93 L 06/01/17 09:00 Constitutional: Yes: No Distress Neck: Yes: WNL Cardiovascular: Yes: Regular Rate and Rhythm, S1, S2 (No MRHG) Respiratory: Yes: CTA Bilaterally Gastrointestinal: Yes: Soft Extremities: Yes: WNL Edema: LLE: Trace, RLE: Trace Neurological: Yes: Alert, Oriented (No MRHG) Psychiatric: Yes: WNL Labs: CBC, BMP 06/01/17 05:50 06/01/17 05:50 INR, PTT INR 1.11 (0.82-1.09) 05/28/17 18:20 Assessment/Plan 76 year old female with a PMH of HTN. She presented to the ED with a change in mental status and an expressive aphasia. EKG showed sinus tachycardia at 101 BPM with LAD, PRWP across the anterior precordial leads, and NSSTTW changes. Initial Head CT was without acuter pathology. BP was elevated to 178/86 mmHg but reduced to 157/77 mmHg. Current BP 155/63 mmHg, She may require additional BLAINE agents. 05/30/17 Rapid response called and found to be hypoxic with an O2 sat of 81 % on room air. Also found to have a fever to 103. ABX continued BNP 965 Given low BNP, no need for aggressive diuresis Change in Mental Status, now improved Continue cardiac meds: Aspirin (Ecotrin -) 81 mg PO DAILY [facility] Last Admin: 05/31/17 09:16 Dose: 81 mg Nifedipine (Procardia Xl -) 30 mg PO DAILY [facility] Last Admin: 05/31/17 09:16 Dose: 30 mg Rosuvastatin Calcium (Crestor -) 20 mg PO HS [facility] Last Admin: 05/30/17 22:07 Dose: 20 mg Valsartan (Diovan -) 80 mg PO DAILY [facility] Last Admin: 05/31/17 09:16 Dose: 80 m Will follow with you.
[2017-06-01] MEDS: ROSUVASTATIN CA 20 MG TABLET (FP) PO SCH (21:19)
[2017-06-01] MEDS: INSULIN DETEMIR 100 UNITS/ML MDV SQ SCH (21:37)
[2017-06-02] MEDS: ALBUTEROL SO4 0.083% IH SOL 2.5 MG/3 ML VIAL.NEB. NEB PRN (04:28)
[2017-06-02] MEDS ORDERED: INSULIN (NOVOLOG) ASPART 100 UNITS/ML 10ML VIAL ONE ×4 (06:41→21:27)
[2017-06-02] MEDS: INSULIN SLIDING SCALE (NOVOLOG) 1 VIAL SQ SCH ×4 (06:47→21:47)
[2017-06-02 07:26] LABS: MCH 28.1 pg (25.7-33.7); MCHC 32.6 g/dl (32.0-36.0); MEAN CELL VOLUME 86.1 fl (80-96); PLATELET COUNT 156 K/MM3 (134-434); RDW 15.1 % (11.6-15.6); WHITE BLOOD COUNT 3.8 K/mm3 (4.0-10.0)
[2017-06-02 07:41] LABS: ALBUMIN 2.8 g/dl (3.4-5.0); ANION GAP 9 (8-16); CALCIUM 8.2 mg/dL (8.5-10.1); CO2 27 mmol/L (21-32); GLUCOSE,RANDOM 230 mg/dL (74-106); SGOT/AST 22 U/L (15-37); SGPT/ALT 28 U/L (12-78)
[2017-06-02 07:43] LABS: ALK PHOS 67 U/L (45-117); BILIRUBIN,TOTAL 0.3 mg/dL (0.2-1.0); CREATININE 1.6 mg/dL (0.55-1.02); TOT PROT 6.1 g/dl (6.4-8.2)
[2017-06-02] MEDS ORDERED: PT OWN MED DRAWER 7, Y5N ONE (09:33)
[2017-06-02] MEDS: ASPIRIN COATED 81 MG TABLET.EC PO SCH (09:35)
[2017-06-02] MEDS: MEMANTINE HCL 5 MG TABLET (UD) PO SCH ×2 (09:35→21:46)
[2017-06-02] MEDS: FLUoxetine HCL 10 MG CAPSULE (FP) PO SCH (09:35)
[2017-06-02] MEDS: VALSARTAN 80 MG TABLET (UD) PO SCH (09:35)
[2017-06-02] MEDS: PANTOPRAZOLE 40 MG TABLET (FP) PO SCH (09:35)
[2017-06-02] MEDS: NIFEdipine E.R. 30 MG TABLET (FP) PO SCH (09:35)
--- NOTE | 2017-06-02 10:49 | PN ---
Progress Note, Physician History of Present Illness: 76 yo primarily syriac speaking woman with hx of Alzheimers dementia, CKD and hypertension who was admitted ~ 48hrs ago with subjective fever and confusion. She was hemodynamically stable and without localizing source of infection (cxr unremarkable, UA clean). She underwent CT head which was negative and was admitted to the floor. Tonight a [employer] was called for hypoxia. She was found to have Spo2 of 81% on RA. Placed on NRB and then dropped down to 4LNC with abg on NC 7.46/37/135 (slightly elevated A-a of 68 by my calculation). She had a fever (oral) to 103. Plan made to transfer to ICU for monitoring. Abx (vanco and P/T) were ordered and repeat UA. Started on empiric anticoagulation for presumed Pulm embolism, LE duplex ordered as well. Had been seen by Neuro, GI, and Renal while on floor. On arrival in ICU pt awake, mioderately confused, hemodynamically stable, Spo2 97% on NC. This am pt feels better no cp or sob no connelly - Current Medication List Current Medications: Active Medications Acetaminophen (Tylenol -) 650 mg PO Q6H PRN PRN Reason: FEVER OR PAIN Last Admin: 06/01/17 21:18 Dose: 650 mg Albuterol Sulfate (Ventolin 0.083% Nebulizer Soln -) 1 amp NEB Q4H PRN PRN Reason: SHORT OF BREATH/WHEEZING Last Admin: 06/02/17 04:28 Dose: 1 amp Aspirin (Ecotrin -) 81 mg PO DAILY [facility] Last Admin: 06/02/17 09:35 Dose: 81 mg Fluoxetine HCl (Prozac -) 10 mg PO DAILY [facility] Last Admin: 06/02/17 09:35 Dose: 10 mg Sodium Chloride (1/2 Normal Saline) 1,000 mls @ 40 mls/hr IV ASDIR [facility] Last Admin: 06/01/17 15:13 Dose: 40 mls/hr Insulin Aspart (Novolog Vial Sliding Scale -) 1 vial SQ ACHS [facility] PRN Reason: Protocol Last Admin: 06/02/17 06:47 Dose: 2 units Memantine (Namenda -) 5 mg PO BID [facility] Last Admin: 06/02/17 09:35 Dose: 5 mg Nifedipine (Procardia Xl -) 30 mg PO DAILY [facility] Last Admin: 06/02/17 09:35 Dose: 30 mg Ondansetron HCl (Zofran Injection) 4 mg IVPB Q6H PRN PRN Reason: NAUSEA AND/OR VOMITING Pantoprazole Sodium (Protonix -) 40 mg PO DAILY [facility] Last Admin: 06/02/17 09:35 Dose: 40 mg Prochlorperazine Maleate (Compazine -) 5 mg PO Q4H PRN PRN Reason: NAUSEA AND/OR VOMITING Rosuvastatin Calcium (Crestor -) 20 mg PO HS [facility] Last Admin: 06/01/17 21:19 Dose: 20 mg Valsartan (Diovan -) 80 mg PO DAILY [facility] Last Admin: 06/02/17 09:35 Dose: 80 mg - Objective Vital Signs: Vital Signs Temperature 98.6 F 06/02/17 05:00 Pulse Rate 88 06/02/17 05:00 Respiratory Rate 20 06/02/17 05:00 Blood Pressure 146/85 06/02/17 05:00 O2 Sat by Pulse Oximetry (%) 99 06/01/17 21:00 Cardiovascular: Yes: Murmur, S1, S2 Respiratory: Yes: Regular, CTA Bilaterally Gastrointestinal: Yes: Normal Bowel Sounds, Soft Edema: No Labs: CBC, BMP 06/02/17 05:35 06/02/17 05:35 INR, PTT INR 1.11 (0.82-1.09) 05/28/17 18:20 Problem List - Problems (1) Altered mental status Assessment/Plan: IMPROVED--NORMAL CT OF HEAD NEGATIVE MRI OF HEAD--UNABLE TO DO NEURO FOLLOW UP POSSIBLE--TOXIC-METABOLIC Code(s): R41.82 - ALTERED MENTAL STATUS, UNSPECIFIED Qualifiers: Altered mental status type: unspecified Qualified Code(s): R41.82 - Altered mental status, unspecified (2) Hypertension Assessment/Plan: MONITOR BP ON DIOVAN Code(s): I10 - ESSENTIAL (PRIMARY) HYPERTENSION Qualifiers: Hypertension type: essential hypertension Qualified Code(s): I10 - Essential (primary) hypertension (3) Fever Assessment/Plan: AFEBRILE THIS AM' ECHO NOTED--CARDIO F/U NOTED CULTURES DONE-NEG TO DATE D/W DR MIRAMONTES--OFF ABX Code(s): R50.9 - FEVER, UNSPECIFIED (4) Hypoxemia Assessment/Plan: DUPLEX NEGATIVE R/O PE--PULM ON CASE--LOW SUSP--D/W DR QUIJANO--DC HEPARIN HEPARIN SQ PULM CONSULT NOTED Code(s): R09.02 - HYPOXEMIA (5) Acute respiratory failure with hypoxemia Assessment/Plan: oxygen diuretics iv abx per id Code(s): J96.01 - ACUTE RESPIRATORY FAILURE WITH HYPOXIA
[2017-06-02] MEDS ORDERED: POTASSIUM CHLORIDE TABS 20 MEQ TABLET.ER (FP) PO ONE (11:20)
--- NOTE | 2017-06-02 13:09 | EKG ---
Test Reason : Blood Pressure : / mmHG Vent. Rate : 095 BPM Atrial Rate : 095 BPM P-R Int : 236 ms QRS Dur : 114 ms QT Int : 386 ms P-R-T Axes : 057 -46 069 degrees QTc Int : 485 ms SINUS RHYTHM WITH 1ST DEGREE A-V BLOCK LEFT AXIS DEVIATION ABNORMAL ECG WHEN COMPARED WITH ECG OF 28-MAY-2017 19:18, NO SIGNIFICANT CHANGE WAS FOUND Confirmed by VIKAS VACA, KATHRYN ([id number]) on 06/02/2017 1:08:45 PM Referred By: Jarrell ANGEL Confirmed By:KATHRYN BEAN MD
[2017-06-02] MEDS: ACETAMINOPHEN 325 MG TABLET (FP) PO PRN (14:00)
--- NOTE | 2017-06-02 14:10 | PN ---
Progress Note (short form) - Note Progress Note: Resting in NAD. Feels better. No CP or SOB. Intake & Output 05/30/17 05/31/17 06/01/17 06/02/17 23:59 23:59 23:59 23:59 Intake Total 2479 2981.2 1955 1115 Output Total 2300 450 Balance 179 2531.2 1955 111 Weight 271 lb 274 lb 7.608 oz 266 lb 266 lb 9.6 oz Last Vital Signs Temp Pulse Resp BP Pulse Ox 99.1 F 94 H 20 153/78 96 06/02/17 09:00 06/02/17 09:00 06/02/17 09:00 06/02/17 09:00 06/02/17 09:00 Active Medications Acetaminophen (Tylenol -) 650 mg PO Q6H PRN PRN Reason: FEVER OR PAIN Last Admin: 06/02/17 14:00 Dose: 650 mg Albuterol Sulfate (Ventolin 0.083% Nebulizer Soln -) 1 amp NEB Q4H PRN PRN Reason: SHORT OF BREATH/WHEEZING Last Admin: 06/02/17 04:28 Dose: 1 amp Aspirin (Ecotrin -) 81 mg PO DAILY [facility] Last Admin: 06/02/17 09:35 Dose: 81 mg Fluoxetine HCl (Prozac -) 10 mg PO DAILY [facility] Last Admin: 06/02/17 09:35 Dose: 10 mg Heparin Sodium (Porcine) (Heparin -) 5,000 unit SQ BID [facility] Insulin Aspart (Novolog Vial Sliding Scale -) 1 vial SQ ACHS [facility] PRN Reason: Protocol Last Admin: 06/02/17 12:15 Dose: 2 units Insulin Detemir (Levemir Vial) 35 units SQ HS [facility] Memantine (Namenda -) 5 mg PO BID [facility] Last Admin: 06/02/17 09:35 Dose: 5 mg Nifedipine (Procardia Xl -) 30 mg PO DAILY [facility] Last Admin: 06/02/17 09:35 Dose: 30 mg Ondansetron HCl (Zofran Injection) 4 mg IVPB Q6H PRN PRN Reason: NAUSEA AND/OR VOMITING Pantoprazole Sodium (Protonix -) 40 mg PO DAILY [facility] Last Admin: 06/02/17 09:35 Dose: 40 mg Prochlorperazine Maleate (Compazine -) 5 mg PO Q4H PRN PRN Reason: NAUSEA AND/OR VOMITING Rosuvastatin Calcium (Crestor -) 20 mg PO HS [facility] Last Admin: 06/01/17 21:19 Dose: 20 mg Valsartan (Diovan -) 80 mg PO DAILY [facility] Last Admin: 06/02/17 09:35 Dose: 80 mg Constitutional: Yes: NAD Eyes: Yes: WNL, Other Neck: Yes: Supple Cardiovascular: Yes: Regular Rate and Rhythm, S1, S2 Respiratory: Yes: Diminished Gastrointestinal: Yes: Normal Bowel Sounds, Soft Extremities: Yes: WNL Edema: No Labs: Laboratory Results - last 24 hr 06/01/17 06/01/17 06/02/17 17:12 21:25 05:35 WBC 3.8 L RBC 4.11 Hgb 11.5 Hct 35.4 MCV 86.1 MCH 28.1 MCHC 32.6 RDW 15.1 Plt Count 156 MPV 10.0 PTT (Actin FS) Sodium Potassium Chloride Carbon Dioxide Anion Gap BUN Creatinine Creat Clearance w eGFR POC Glucometer 204 239 Random Glucose Calcium Magnesium Total Bilirubin AST ALT Alkaline Phosphatase Total Protein Albumin 06/02/17 06/02/17 06/02/17 05:35 05:35 06:38 WBC RBC Hgb Hct MCV MCH MCHC RDW Plt Count MPV PTT (Actin FS) 54.6 H Sodium 137 Potassium 3.4 L Chloride 101 Carbon Dioxide 27 Anion Gap 9 BUN 20 H D Creatinine 1.6 H Creat Clearance w eGFR 31.51 POC Glucometer 249 Random Glucose 230 H Calcium 8.2 L Magnesium 2.0 Total Bilirubin 0.3 D AST 22 ALT 28 Alkaline Phosphatase 67 Total Protein 6.1 L Albumin 2.8 L 06/02/17 12:10 WBC RBC Hgb Hct MCV MCH MCHC RDW Plt Count MPV PTT (Actin FS) Sodium Potassium Chloride Carbon Dioxide Anion Gap BUN Creatinine Creat Clearance w eGFR POC Glucometer 250 Random Glucose Calcium Magnesium Total Bilirubin AST ALT Alkaline Phosphatase Total Protein Albumin Problem List - Problems (1) Altered mental status Code(s): R41.82 - ALTERED MENTAL STATUS, UNSPECIFIED Qualifiers: Altered mental status type: unspecified Qualified Code(s): R41.82 - Altered mental status, unspecified (2) CKD (chronic kidney disease) Code(s): N18.9 - CHRONIC KIDNEY DISEASE, UNSPECIFIED (3) Fever Code(s): R50.9 - FEVER, UNSPECIFIED (4) Hypercholesteremia Code(s): E78.00 - PURE HYPERCHOLESTEROLEMIA, UNSPECIFIED (5) Hypertension Code(s): I10 - ESSENTIAL (PRIMARY) HYPERTENSION Qualifiers: Hypertension type: essential hypertension Qualified Code(s): I10 - Essential (primary) hypertension (6) Hypoxemia Code(s): R09.02 - HYPOXEMIA Assessment/Plan IMP: Fever -> Etiology to be determined currently afebrile (?) Viral Illness Bibasilar atelectasis -> Hypoxemia Do not have a high clinical suspicion of VTE Do not suspect PNA Thoracic spine abnormality noted on CT imaging -> needs further elucidation Morbid obesity Suspected OSAS (?) confusion improving DM HTN PLAN: Off ABX per ID O2 as needed replete lytes Will need full sleep workup after discharge Fall precautions Dr Grant
--- NOTE | 2017-06-02 14:36 | PN ---
Progress Note, Physician History of Present Illness: Pt seen and examined at bedside. She is awake and alert. She denies shortness of breath. - Current Medication List Current Medications: Active Medications Acetaminophen (Tylenol -) 650 mg PO Q6H PRN PRN Reason: FEVER OR PAIN Last Admin: 06/02/17 14:00 Dose: 650 mg Albuterol Sulfate (Ventolin 0.083% Nebulizer Soln -) 1 amp NEB Q4H PRN PRN Reason: SHORT OF BREATH/WHEEZING Last Admin: 06/02/17 04:28 Dose: 1 amp Aspirin (Ecotrin -) 81 mg PO DAILY [facility] Last Admin: 06/02/17 09:35 Dose: 81 mg Fluoxetine HCl (Prozac -) 10 mg PO DAILY [facility] Last Admin: 06/02/17 09:35 Dose: 10 mg Heparin Sodium (Porcine) (Heparin -) 5,000 unit SQ BID [facility] Insulin Aspart (Novolog Vial Sliding Scale -) 1 vial SQ ACHS [facility] PRN Reason: Protocol Last Admin: 06/02/17 12:15 Dose: 2 units Insulin Detemir (Levemir Vial) 35 units SQ HS [facility] Memantine (Namenda -) 5 mg PO BID [facility] Last Admin: 06/02/17 09:35 Dose: 5 mg Nifedipine (Procardia Xl -) 30 mg PO DAILY [facility] Last Admin: 06/02/17 09:35 Dose: 30 mg Ondansetron HCl (Zofran Injection) 4 mg IVPB Q6H PRN PRN Reason: NAUSEA AND/OR VOMITING Pantoprazole Sodium (Protonix -) 40 mg PO DAILY [facility] Last Admin: 06/02/17 09:35 Dose: 40 mg Prochlorperazine Maleate (Compazine -) 5 mg PO Q4H PRN PRN Reason: NAUSEA AND/OR VOMITING Rosuvastatin Calcium (Crestor -) 20 mg PO HS [facility] Last Admin: 06/01/17 21:19 Dose: 20 mg Valsartan (Diovan -) 80 mg PO DAILY [facility] Last Admin: 06/02/17 09:35 Dose: 80 mg - Objective Vital Signs: Vital Signs Temperature 100.4 F H 06/02/17 14:00 Pulse Rate 97 H 06/02/17 14:00 Respiratory Rate 20 06/02/17 14:00 Blood Pressure 132/76 06/02/17 14:00 O2 Sat by Pulse Oximetry (%) 96 06/02/17 09:00 Constitutional: Yes: Calm Eyes: Yes: Conjunctiva Clear HENT: Yes: Atraumatic Neck: Yes: Supple Cardiovascular: Yes: S1, S2 Respiratory: Yes: CTA Bilaterally Gastrointestinal: Yes: Soft, Abdomen, Obese Genitourinary: Yes: WNL Musculoskeletal: Yes: WNL Edema: No Neurological: Yes: Oriented Labs: CBC, BMP 06/02/17 05:35 06/02/17 05:35 INR, PTT INR 1.11 (0.82-1.09) 05/28/17 18:20 Problem List - Problems (1) Altered mental status Code(s): R41.82 - ALTERED MENTAL STATUS, UNSPECIFIED Qualifiers: Altered mental status type: unspecified Qualified Code(s): R41.82 - Altered mental status, unspecified (2) Hypercholesteremia Code(s): E78.00 - PURE HYPERCHOLESTEROLEMIA, UNSPECIFIED (3) Hyperglycemia Code(s): R73.9 - HYPERGLYCEMIA, UNSPECIFIED (4) Hypertension Code(s): I10 - ESSENTIAL (PRIMARY) HYPERTENSION Qualifiers: Hypertension type: essential hypertension Qualified Code(s): I10 - Essential (primary) hypertension (5) Hypoxemia Code(s): R09.02 - HYPOXEMIA (6) CKD (chronic kidney disease) Code(s): N18.9 - CHRONIC KIDNEY DISEASE, UNSPECIFIED Assessment/Plan Current Medications Generic Name Dose Route Start Last Admin Trade Name Freq PRN Reason Stop Dose Admin Acetaminophen 650 mg 05/31/17 19:15 06/02/17 14:00 Tylenol - PO 650 mg Q6H PRN Administration FEVER OR PAIN Albuterol Sulfate 1 amp 05/31/17 19:15 06/02/17 04:28 Ventolin 0.083% Nebulizer Soln - NEB 1 amp Q4H PRN Administration SHORT OF BREATH/WHEEZING Aspirin 81 mg 06/01/17 10:00 06/02/17 09:35 Ecotrin - PO 81 mg DAILY [facility] Administration Fluoxetine HCl 10 mg 06/01/17 10:00 06/02/17 09:35 Prozac - PO 10 mg DAILY [facility] Administration Heparin Sodium (Porcine) 5,000 unit 06/02/17 22:00 Heparin - SQ BID [facility] Insulin Aspart 1 vial 05/31/17 22:00 06/02/17 12:15 Novolog Vial Sliding Scale - SQ 2 units ACHS [facility] Administration Protocol Insulin Detemir 35 units 06/02/17 22:00 Levemir Vial SQ HS [facility] Memantine 5 mg 05/31/17 22:00 06/02/17 09:35 Namenda - PO 5 mg BID [facility] Administration Nifedipine 30 mg 06/01/17 10:00 06/02/17 09:35 Procardia Xl - PO 30 mg DAILY [facility] Administration Ondansetron HCl 4 mg 05/31/17 19:15 Zofran Injection IVPB Q6H PRN NAUSEA AND/OR VOMITING Pantoprazole Sodium 40 mg 06/01/17 10:00 06/02/17 09:35 Protonix - PO 40 mg DAILY [facility] Administration Prochlorperazine Maleate 5 mg 05/31/17 19:15 Compazine - PO Q4H PRN NAUSEA AND/OR VOMITING Rosuvastatin Calcium 20 mg 05/31/17 22:00 06/01/17 21:19 Crestor - PO 20 mg HS [facility] Administration Valsartan 80 mg 06/01/17 10:00 06/02/17 09:35 Diovan - PO 80 mg DAILY [facility] Administration Impression 1. CKD 2. DM 3. HTN 4. altered mental status 5. vomiting 6. r/p sepsis 7. fever 8. CIARRA Plan - supplement potassium - renal function improving - repeat labs in am - will see as outpt for workup - avoid sedatives - will follow Dr Salmon
[2017-06-02] MEDS: ROSUVASTATIN CA 20 MG TABLET (FP) PO SCH (21:46)
[2017-06-02] MEDS: HEPARIN NA (PORCINE) 5,000 UNITS/ML 1ML VIAL SQ SCH (21:47)
[2017-06-02] MEDS ORDERED: INSULIN DETEMIR 100 UNITS/ML MDV SQ SCH (22:00)
[2017-06-03] MEDS: INSULIN SLIDING SCALE (NOVOLOG) 1 VIAL SQ SCH ×2 (06:20→11:36)
[2017-06-03 07:31] LABS: BASOPHIL 0.9 % (0-2.0); EOSINOPHIL 2.4 % (0-4.5); MCH 28.5 pg (25.7-33.7); MCHC 33.4 g/dl (32.0-36.0); MEAN CELL VOLUME 85.5 fl (80-96); MEAN PLT VOLUME 9.5 fl (7.5-11.1); NEUTROPHILS 59.2 % (42.8-82.8); PLATELET COUNT 159 K/MM3 (134-434); WHITE BLOOD COUNT 3.9 K/mm3 (4.0-10.0)
[2017-06-03 07:49] LABS: ALBUMIN 2.9 g/dl (3.4-5.0); ANION GAP 9 (8-16); CALCIUM 9.1 mg/dL (8.5-10.1); CO2 28 mmol/L (21-32); CREATININE 1.4 mg/dL (0.55-1.02); GLUCOSE,RANDOM 213 mg/dL (74-106); SGOT/AST 55 U/L (15-37); SGPT/ALT 48 U/L (12-78)
[2017-06-03 07:51] LABS: ALK PHOS 72 U/L (45-117); TOT PROT 6.3 g/dl (6.4-8.2)
[2017-06-03] MEDS ORDERED: PT OWN MED DRAWER 7, Y5N ONE (09:07)
[2017-06-03] MEDS: HEPARIN NA (PORCINE) 5,000 UNITS/ML 1ML VIAL SQ SCH (09:11)
[2017-06-03] MEDS: MEMANTINE HCL 5 MG TABLET (UD) PO SCH (09:11)
[2017-06-03] MEDS ORDERED: INSULIN DETEMIR 100 UNITS/ML MDV SQ SCH (09:11)
[2017-06-03] MEDS: NIFEdipine E.R. 30 MG TABLET (FP) PO SCH (09:11)
[2017-06-03] MEDS: FLUoxetine HCL 10 MG CAPSULE (FP) PO SCH (09:11)
[2017-06-03] MEDS: ASPIRIN COATED 81 MG TABLET.EC PO SCH (09:11)
[2017-06-03] MEDS: PANTOPRAZOLE 40 MG TABLET (FP) PO SCH (09:11)
[2017-06-03] MEDS: VALSARTAN 80 MG TABLET (UD) PO SCH (09:11)
--- NOTE | 2017-06-03 09:14 | DS ---
Physical Examination Vital Signs: Vital Signs Temperature 98.5 F 06/03/17 06:00 Pulse Rate 80 06/03/17 06:00 Respiratory Rate 18 06/03/17 06:00 Blood Pressure 139/95 06/03/17 06:00 O2 Sat by Pulse Oximetry (%) 95 06/02/17 20:01 Cardiovascular: Yes: Regular Rate and Rhythm Respiratory: Yes: Regular, CTA Bilaterally Gastrointestinal: Yes: Normal Bowel Sounds, Soft Labs: CBC, BMP 06/03/17 05:35 06/03/17 05:35 Discharge Summary Reason For Visit: GENERALIZED WEAKNESS,HYPERCHOLESTEROLEMIA Current Active Problems Altered mental status (Acute) CKD (chronic kidney disease) (Acute) Diabetes (Acute) Fever (Acute) Hypercholesteremia (Acute) Hyperglycemia (Acute) Hypertension (Acute) Hypoxemia (Acute) Sepsis (Acute) TIA (transient ischemic attack) (Acute) Vomiting (Acute) Hospital Course: 76 yo primarily italian speaking woman with hx of Alzheimers dementia, CKD and hypertension who was admitted ~ 48hrs ago with subjective fever and confusion. She was hemodynamically stable and without localizing source of infection (cxr unremarkable, UA clean). She underwent CT head which was negative and was admitted to the floor. Tonight a LOCK OPERATOR was called for hypoxia. She was found to have Spo2 of 81% on RA. Placed on NRB and then dropped down to 4LNC with abg on NC 7.46/37/135 (slightly elevated A-a of 68 by my calculation). She had a fever (oral) to 103. Plan made to transfer to ICU for monitoring. Abx (vanco and P/T) were ordered and repeat UA. Started on empiric anticoagulation for presumed Pulm embolism, LE duplex ordered as well. Had been seen by Neuro, GI, and Renal while on floor. On arrival in ICU pt awake, mioderately confused, hemodynamically stable, Spo2 97% on NC. - Problems (1) Altered mental status Assessment/Plan: IMPROVED--NORMAL CT OF HEAD NEGATIVE MRI OF HEAD--UNABLE TO DO NEURO FOLLOW UP POSSIBLE--TOXIC-METABOLIC Code(s): R41.82 - ALTERED MENTAL STATUS, UNSPECIFIED Qualifiers: Altered mental status type: unspecified Qualified Code(s): R41.82 - Altered mental status, unspecified (2) Hypertension Assessment/Plan: MONITOR BP ON DIOVAN Code(s): I10 - ESSENTIAL (PRIMARY) HYPERTENSION Qualifiers: Hypertension type: essential hypertension Qualified Code(s): I10 - Essential (primary) hypertension (3) Fever Assessment/Plan: AFEBRILE THIS AM' ECHO NOTED--CARDIO F/U NOTED CULTURES DONE-NEG TO DATE D/W DR MIRAMONTES--OFF ABX Code(s): R50.9 - FEVER, UNSPECIFIED (4) Hypoxemia Assessment/Plan: DUPLEX NEGATIVE R/O PE--PULM ON CASE--LOW SUSP--D/W DR QUIJANO--DC HEPARIN HEPARIN SQ PULM CONSULT NOTED Code(s): R09.02 - HYPOXEMIA (5) Acute respiratory failure with hypoxemia Assessment/Plan: oxygen diuretics Code(s): J96.01 - ACUTE RESPIRATORY FAILURE WITH HYPOXIA Condition: Stable - Instructions Diet, Activity, Other Instructions: you will need follow up cat scan as outpatient follow up with dr gee in one week Referrals: Anum Gee MD [Primary Care Provider] - 1 Week Disposition: HOME - Home Medications Comprehensive Discharge Medication List: Ambulatory Orders Gabapentin 300 mg PO HS PRN 01/08/15 Acetaminophen [Tylenol] 500 mg PO QID PRN 05/28/17 Aspirin [ASA -] 81 mg PO DAILY 05/28/17 Fluoxetine HCl 20 mg PO DAILY 05/28/17 Memantine HCl [Namenda Xr] 7 mg PO DAILY 05/28/17 Nifedipine [Procardia Xl] 30 mg PO DAILY 05/28/17 Olmesartan Medoxomil 20 mg PO DAILY 05/28/17 Rosuvastatin [Crestor -] 20 mg PO HS 05/28/17 Dexlansoprazole [Dexilant] PO DAILY 05/30/17 Ergocalciferol (Vitamin D2) [Vitamin D2] PO DAILY 05/30/17 Icosapent Ethyl [Vascepa] 2 grams PO BID 05/30/17 Umeclidinium [place] [Incruse Ellipta] 1 puff DAILY 05/30/17 Vitamin B Complex [B Complex] DAILY 05/30/17 Insulin (Levemir) [Levemir Vial] 40 units SQ HS ml 06/03/17
[2017-06-03] MEDS ORDERED: METOPROLOL TARTRATE 25 MG TABLET (FP) PO SCH (10:00)
[2017-06-03 12:10] VITALS: BP 157/71; PULSE 87; TEMP 98.1
== END 2017-06-03 14:37 | disposition home or self-care (01) | DRG 70 ==
LOC: JER 17:39 → JERBED 21:15 → J5S 05-29 04:34 → J4W 05-29 13:42 → JICU 05-30 01:25 → J4W 05-31 18:58
PROVIDERS: ADMIT Family Medicine; ATTEND Family Medicine
DX: G93.41 Metabolic encephalopathy (principal); J96.01 Acute respiratory failure with hypoxia; E87.1 Hypo-osmolality and hyponatremia; N17.9 Acute kidney failure, unspecified; J98.11 Atelectasis; Z68.41 Body mass index [BMI] 40.0-44.9, adult; R41.82 Altered mental status, unspecified; I12.9 Hypertensive chronic kidney disease with stage 1 through stage 4 chronic kidney disease, or unspecified chronic kidney disease; E11.22 Type 2 diabetes mellitus with diabetic chronic kidney disease; N18.9 Chronic kidney disease, unspecified; G30.9 Alzheimer's disease, unspecified; F02.80 Dementia in other diseases classified elsewhere, unspecified severity, without behavioral disturbance, psychotic disturbance, mood disturbance, and anxiety; E66.01 Morbid (severe) obesity due to excess calories; E87.6 Hypokalemia; E78.5 Hyperlipidemia, unspecified
CPT/HCPCS: 36415; 36600; 70450-TC; 71010-TC; 71020-TC; 71250-TC; 74000-TC; 76700-TC; 80048; 80053; 81003; 81015; 82150; 82436; 82465; 82553; 82570; 82607; 82746; 82803; 83036; 83605; 83690; 83718; 83721; 83735; 83880; 84100; 84133; 84156; 84300; 84478; 84484; 85025; 85027; 85610; 85651; 85730; 86593; 86850; 86900; 86901; 87040; 87086; 87804; 93005; 93010; 93306-TC; 93880-TC; 93970-TC; 94640; 97116-GP; 97161-GP; 99285-25; J1644

== ENCOUNTER 2019-11-27 16:49 | Emergency (ER) | payer OTHER ==
--- NOTE | 2019-11-27 17:18 | PDOC ---
History of Present Illness - General Stated Complaint: HYPERGLYCEMIA Time Seen by Provider: 11/27/19 17:16 - History of Present Illness Initial Comments: 11/27/19 17:52 Pt is a 79y/o female with IDDM, HTN, HLD who presents with hyperglycemia. She reports she forgot to take her insulin this morning, measured her BG which was 526, took her insulin then called EMS. BG usually runs in 200s. She has not been adhering to a diabetic diet but reports taking medications as directed, including insulin. She denies recent fever or chills, nausea or vomiting. Pt reports intermittent LUQ pain that is not new. Pt had a perfusion scan last week that showed EF 49% with anteroseptal ischemia. Past History - Past Medical History Allergies/Adverse Reactions: Allergies Allergy/AdvReac Type Severity Reaction Status Date / Time No Known Allergies Allergy Verified 11/27/19 17:18 Home Medications: Ambulatory Orders Acetaminophen [Tylenol] 500 mg PO QID PRN 05/28/17 Aspirin [ASA -] 81 mg PO DAILY 05/28/17 Fluoxetine HCl 20 mg PO DAILY 05/28/17 Olmesartan Medoxomil 20 mg PO DAILY 05/28/17 Rosuvastatin [Crestor -] 20 mg PO HS 05/28/17 Dexlansoprazole [Dexilant] PO DAILY 05/30/17 Ergocalciferol (Vitamin D2) [Vitamin D2] PO DAILY 05/30/17 Icosapent Ethyl [Vascepa] 2 grams PO BID 05/30/17 Umeclidinium [place] [Incruse Ellipta] 1 puff DAILY 05/30/17 Vitamin B Complex [B Complex] DAILY 05/30/17 Insulin (Levemir) [Levemir Vial] 40 units SQ HS ml 06/03/17 Metoprolol Tartrate [Lopressor -] 25 mg PO DAILY #30 tablet 06/03/17 Aspirin [Aspirin EC] 11/27/19 Dexlansoprazole [Dexilant] 60 mg PO DAILY 11/27/19 Exenatide Microspheres [Bydureon Bcise] 11/27/19 Ezetimibe 10 mg PO DAILY 11/27/19 Furosemide 40 mg PO DAILY 11/27/19 Gabapentin 400 mg PO DAILY 11/27/19 Insulin Degludec [Tresiba Flextouch U-200] 11/27/19 Insulin Lispro Protamin/Lispro [Humalog Mix 50-50 Kwikpen] 11/27/19 Linaclotide [Linzess] 145 mg PO DAILY 11/27/19 Memantine HCl [Memantine HCl ER] 7 mg PO DAILY 11/27/19 Nifedipine ER [Procardia XL -] 30 mg PO DAILY 11/27/19 Telmisartan 80 mg PO DAILY 11/27/19 Umeclidinium [place] [Incruse Ellipta] 1 puff IH DAILY 11/27/19 DVT: Yes (2 years ago, on coumadin) Diabetes: Yes GI Disorders: (colitis 07/04) HTN: Yes Hypercholesterolemia: Yes - Surgical History Cholecystectomy: Yes - Immunization History Immunization Up to Date: Yes - Psycho Social/Smoking Cessation Hx Smoking Status: No Smoking History: Never smoked Have you smoked in the past 12 months: No Number of Cigarettes Smoked Daily: 0 Hx Alcohol Use: No Drug/Substance Use Hx: No Review of Systems - Review of Systems Constitutional: No: Chills, Fever Respiratory: No: Shortness of Breath Cardiac (ROS): No: Chest Pain ABD/GI: No: Nausea, Vomiting *Physical Exam - Physical Exam General Appearance: Yes: Appropriately Dressed, Obese. No: Apparent Distress HEENT: positive: EOMI, RAGHAV Respiratory/Chest: positive: Lungs Clear (anteriorly) Cardiovascular: positive: Regular Rhythm, Regular Rate. negative: Murmur Gastrointestinal/Abdominal: positive: Normal Bowel Sounds. negative: Tender Extremity: positive: Swelling (pedal) Neurologic: positive: Alert, Normal Mood/Affect Medical Decision Making - Medical Decision Making 11/27/19 18:21 Pt is a 79y/o female with IDDM, HTN, HLD who presents with hyperglycemia. She reports she forgot to take her insulin this morning, measured her BG which was 526, took her insulin then called EMS. BG usually runs in 200s. BG here is 253. Discharge - Discharge Information Problems reviewed: Yes Clinical Impression/Diagnosis: Hyperglycemia - Follow up/Referral - Patient Discharge Instructions Additional Instructions: You were seen in the emergency room after your blood sugar was high. It is now near your normal, and you are able to go home. - Post Discharge Activity
[2019-11-27 17:27] VITALS: BMI 39.1
--- NOTE | 2019-11-27 18:29 | PDOC ---
Documentation entered by Zaida Jones SCRIBE, acting as scribe for Dianna Law DO. Dianna Law DO: This documentation has been prepared by the marito, Zaida Jones SCRIBE, under my direction and personally reviewed by me in its entirety. I confirm that the documentation accurately reflects all work, treatment, procedures, and medical decision making performed by me. Attending Attestation - Resident Resident Name: Kendra Granados - ED Attending Attestation I have performed the following: I have examined & evaluated the patient, The case was reviewed & discussed with the resident, I agree w/resident's findings & plan, Exceptions are as noted - HPI HPI: 11/27/19 18:24 The patient is a 79 year old female with a significant PMH of IDDM, HTN, HLD who presents to the emergency department [facility] for hyperglycemia. The patient states she forgot to take her insulin today, took her GS and it was over 500. Pt states she took her insulin immediately after and came to the ER for further evaluations. Pts current GS in the ED is 200, which is her baseline. The patient denies chest pain, shortness of breath, headache and dizziness. Denies fever, chills, cough, nausea, vomiting, diarrhea and constipation. Denies dysuria, frequency, urgency and hematuria. Allergies: NKDA PCP: Dr. Mendoza - Physicial Exam PE: 11/27/19 18:25 GENERAL: Awake, alert, and fully oriented, in no acute distress HEAD: No signs of trauma EYES: PERRLA, EOMI, sclera anicteric, conjunctiva clear ENT: Auricles normal inspection, hearing grossly normal, nares patent, oropharynx clear without exudates. Moist mucosa NECK: Normal ROM, supple, no lymphadenopathy, JVD, or masses LUNGS: Breath sounds equal, clear to auscultation bilaterally. No wheezes, and no crackles HEART: Regular rate and rhythm, normal S1 and S2, no murmurs, rubs or gallops ABDOMEN: Soft, nontender, normoactive bowel sounds. No guarding, no rebound. No masses EXTREMITIES: Normal range of motion, no edema. No clubbing or cyanosis. No cords, erythema, or tenderness NEUROLOGICAL: Cranial nerves II through XII grossly intact. SKIN: Warm, Dry, normal turgor, no rashes or lesions noted. - Medical Decision Making 11/27/19 18:26 a/p: 79yo female with hx of htn, dm with elevated glu earlier today when she checked her glu at home -pt denies all somatic complaints -states she checked her glu and it was >500, dosed her own insulin and then decided to come in for eval -pt denies cp/sob -pt denies abd pain, no n/v/d -no dysuria -no somatic complaints -pt with glu - 200 -pt asking to go home -pt will follow up with Dr. House, Dr. Mendoza
[2019-11-27 18:38] VITALS: BP 164/88; PULSE 74; TEMP 98.6
== END 2019-11-27 18:38 | disposition home or self-care (01) ==
LOC: JER 16:49
DX: E11.65 Type 2 diabetes mellitus with hyperglycemia (principal); Z79.4 Long term (current) use of insulin; I10 Essential (primary) hypertension; E78.5 Hyperlipidemia, unspecified
CPT/HCPCS: 82962; 99283-25

== ENCOUNTER 2021-02-04 10:17 | Inpatient (IN) | payer OTHER ==
[2021-02-04] MEDS ORDERED: SODIUM CHLORIDE 1,000 ML IV STA (10:45)
[2021-02-04] MEDS ORDERED: ACETAMINOPHEN 500 MG TABLET (FP) PO ONE (10:45)
[2021-02-04] MEDS ORDERED: ACETAMINOPHEN 325 MG TABLET (FP) ONE (10:51)
[2021-02-04 11:15] LABS: BASO % 0.4 % (0-2.0); EOS % 4.7 % (0-4.5); HEMATOCRIT 35.7 % (32.4-45.2); HEMOGLOBIN 12.3 GM/dL (10.7-15.3); LYMPH % 9.6 % (8-40); MCH 30.2 pg (25.7-33.7); MCHC 34.5 g/dl (32.0-36.0); MEAN CELL VOLUME 87.3 fl (80-96); MEAN PLT VOLUME 9.2 fl (7.5-11.1); MONO % 11.6 % (3.8-10.2); NEUT % 73.7 % (42.8-82.8); PLATELET COUNT 155 K/MM3 (134-434); RBC 4.09 M/mm3 (3.60-5.2); RDW 15.9 % (11.6-15.6)
[2021-02-04 11:40] LABS: ALBUMIN 3.7 g/dl (3.4-5.0); BLOOD UREA NITROGEN 36.2 mg/dL (7-18); CALCIUM 9.1 mg/dL (8.5-10.1)
[2021-02-04 11:41] LABS: MAGNESIUM 1.7 mg/dL (1.8-2.4)
[2021-02-04 11:43] LABS: CREATININE 2.7 mg/dL (0.55-1.3)
[2021-02-04 11:45] LABS: BILIRUBIN,TOTAL 0.6 mg/dL (0.2-1)
[2021-02-04] MEDS ORDERED: MAGNESIUM SULF 50% (8.12 MEQ/2 ML-1 GM VIAL) IVPB ONE (11:57)
[2021-02-04] MEDS ORDERED: POTASSIUM CHLORIDE TABS 20 MEQ TABLET.ER (FP) PO ONE ×2 (11:57→12:22)
[2021-02-04] MEDS ORDERED: MAGNESIUM 1GM/D5W - 1 GM/100 ML IVPB IVPB ONE (12:23)
[2021-02-04] MEDS ORDERED: LACTATED RINGERS SOLUTION 1000 ML INFUS.BAG IV ONE (13:46)
[2021-02-04] MEDS ORDERED: PANTOPRAZOLE SODIUM 40 MG VIAL IVPUSH SCH (15:45)
[2021-02-04] MEDS: D5-1/2NS+20 MEQ KCL - 20 MEQ/1,000 ML INFUS.BAG IV SCH (17:33)
[2021-02-04] MEDS: INSULIN SLIDING SCALE (NOVOLOG) 1 VIAL SQ SCH ×2 (17:34→21:20)
[2021-02-04 18:20] VITALS: BMI 31.5
[2021-02-04] MEDS ORDERED: INSULIN (NOVOLOG) ASPART 100 UNITS/ML 10ML VIAL ONE (21:13)
[2021-02-04] MEDS: HEPARIN NA (PORCINE) 5,000 UNITS/ML 1ML VIAL SQ SCH (21:20)
[2021-02-04] MEDS ORDERED: ROSUVASTATIN CA 20 MG TABLET (FP) PO SCH (22:00)
[2021-02-05] MEDS: INSULIN SLIDING SCALE (NOVOLOG) 1 VIAL SQ SCH ×4 (06:23→21:00)
[2021-02-05 07:58] LABS: EPI CELLS 18 /uL (0-25.1); HYALINE CASTS 1 /uL (0-3.1); URINE APPEARANCE CLEAR; URINE BACTERIA 231 /uL (0-1359); URINE BILIRUBIN NEGATIVE (NEGATIVE); URINE COLOR YELLOW; URINE GLUCOSE (UA) NEGATIVE (NEGATIVE); URINE KETONE NEGATIVE (NEGATIVE); URINE LEUK ESTERASE TRACE (NEGATIVE); URINE NITRITE NEGATIVE (NEGATIVE); URINE PROTEIN 1+ (NEGATIVE); URINE RBC 5 /uL (0-23.9); URINE UROBILINOGEN 0.2 mg/dL (0.2-1.0); URINE WBC 50 /uL (0-25.8)
[2021-02-05] MEDS: METOPROLOL TARTRATE 25 MG TABLET (FP) PO SCH (09:14)
[2021-02-05] MEDS: ASPIRIN 81 MG CHEWABLE TABLETS PO SCH (09:14)
[2021-02-05] MEDS: NIFEdipine E.R. 30 MG TABLET PO SCH (09:14)
[2021-02-05] MEDS: HEPARIN NA (PORCINE) 5,000 UNITS/ML 1ML VIAL SQ SCH ×2 (09:14→21:00)
[2021-02-05 09:53] LABS: BASO % 0.4 % (0-2.0); EOS % 7.4 % (0-4.5); HEMATOCRIT 33.8 % (32.4-45.2); HEMOGLOBIN 11.8 GM/dL (10.7-15.3); LYMPH % 11.8 % (8-40); MCHC 34.8 g/dl (32.0-36.0); MEAN CELL VOLUME 86.2 fl (80-96); MEAN PLT VOLUME 9.3 fl (7.5-11.1); MONO % 10.7 % (3.8-10.2); NEUT % 69.7 % (42.8-82.8); PLATELET COUNT 160 K/MM3 (134-434); RBC 3.92 M/mm3 (3.60-5.2); RDW 16.1 % (11.6-15.6); WHITE BLOOD COUNT 3.8 K/mm3 (4.0-10.0)
[2021-02-05] MEDS ORDERED: EZETIMIBE 10 MG TABLET (FP) PO SCH (10:00)
[2021-02-05 10:51] LABS: CALCIUM 8.9 mg/dL (8.5-10.1)
[2021-02-05 10:52] LABS: ALBUMIN 3.4 g/dl (3.4-5.0); BLOOD UREA NITROGEN 27.2 mg/dL (7-18)
[2021-02-05 10:53] LABS: TOT PROT 6.4 g/dl (6.4-8.2)
[2021-02-05 10:54] LABS: BILIRUBIN,TOTAL 0.4 mg/dL (0.2-1)
[2021-02-05 10:55] LABS: CREATININE 1.8 mg/dL (0.55-1.3)
[2021-02-05] MEDS: D5-1/2NS+20 MEQ KCL - 20 MEQ/1,000 ML INFUS.BAG IV SCH ×3 (13:19→23:13)
[2021-02-05] MEDS ORDERED: LOPERAMIDE HCL 2 MG CAPSULE PO ONE (15:46)
[2021-02-05] MEDS ORDERED: ACETAMINOPHEN 325 MG TABLET (FP) PO ONE (17:32)
[2021-02-06] MEDS: INSULIN SLIDING SCALE (NOVOLOG) 1 VIAL SQ SCH ×4 (07:23→21:50)
[2021-02-06] MEDS ORDERED: LOPERAMIDE HCL 2 MG CAPSULE PO ONE (07:57)
[2021-02-06] MEDS: METOPROLOL TARTRATE 25 MG TABLET (FP) PO SCH (09:12)
[2021-02-06] MEDS: NIFEdipine E.R. 30 MG TABLET PO SCH (09:12)
[2021-02-06] MEDS: HEPARIN NA (PORCINE) 5,000 UNITS/ML 1ML VIAL SQ SCH ×2 (09:13→21:50)
[2021-02-06] MEDS: ASPIRIN 81 MG CHEWABLE TABLETS PO SCH (09:13)
[2021-02-06 09:15] LABS: HEMATOCRIT 35.6 % (32.4-45.2); HEMOGLOBIN 12.5 GM/dL (10.7-15.3); MCH 29.9 pg (25.7-33.7); MCHC 35.1 g/dl (32.0-36.0); MEAN CELL VOLUME 85.3 fl (80-96); MEAN PLT VOLUME 9.1 fl (7.5-11.1); PLATELET COUNT 181 K/MM3 (134-434); RBC 4.17 M/mm3 (3.60-5.2); RDW 16.2 % (11.6-15.6); WHITE BLOOD COUNT 3.4 K/mm3 (4.0-10.0)
[2021-02-06 09:44] LABS: CALCIUM 9.2 mg/dL (8.5-10.1)
[2021-02-06 09:48] LABS: CREATININE 1.4 mg/dL (0.55-1.3)
[2021-02-06] MEDS ORDERED: CHOLESTYRAMINE/ASPARTAME 4 GM PACKET PO SCH (10:00)
[2021-02-06] MEDS ORDERED: LOPERAMIDE HCL 2 MG CAPSULE PO PRN (10:38)
[2021-02-06] MEDS: D5-1/2NS+20 MEQ KCL - 20 MEQ/1,000 ML INFUS.BAG IV SCH ×2 (12:00→16:58)
[2021-02-06] MEDS: OLANZapine 2.5 MG TABLET PO SCH (15:09)
[2021-02-06] MEDS ORDERED: HALOPERIDOL LACTATE 5 MG/ML IM ONE (16:45)
[2021-02-06] MEDS ORDERED: D5-1/2NS+20 MEQ KCL - 20 MEQ/1,000 ML INFUS.BAG IV SCH (20:50)
[2021-02-07] MEDS: INSULIN SLIDING SCALE (NOVOLOG) 1 VIAL SQ SCH ×4 (06:53→22:46)
[2021-02-07] MEDS ORDERED: PT OWN MED DRAWER 7, Y5N ONE (10:56)
[2021-02-07] MEDS: NIFEdipine E.R. 30 MG TABLET PO SCH (11:08)
[2021-02-07] MEDS: OLANZapine 2.5 MG TABLET PO SCH (11:08)
[2021-02-07] MEDS: HEPARIN NA (PORCINE) 5,000 UNITS/ML 1ML VIAL SQ SCH ×2 (11:08→22:46)
[2021-02-07] MEDS: METOPROLOL TARTRATE 25 MG TABLET (FP) PO SCH (11:08)
[2021-02-07] MEDS: ASPIRIN 81 MG CHEWABLE TABLETS PO SCH (11:08)
[2021-02-07] MEDS ORDERED: MAGNESIUM OXIDE 400 MG TABLET (FP) PO ONE (14:35)
[2021-02-07] MEDS ORDERED: MAGNESIUM SULF 50% (8.12 MEQ/2 ML-1 GM VIAL) IVPB ONE (14:37)
[2021-02-07] MEDS ORDERED: SODIUM CHLORIDE 0.45%/POT 20 MEQ/1,000 ML INFUS.BAG IV SCH (14:45)
[2021-02-07] MEDS ORDERED: MAGNESIUM SULFATE IN WATER 2 GM/50 ML IVPB IVPB ONE (15:00)
[2021-02-07] MEDS: CHOLESTYRAMINE/ASPARTAME 4 GM PACKET PO SCH (15:27)
[2021-02-07] MEDS ORDERED: OLANZapine 2.5 MG TABLET PO SCH (22:00)
[2021-02-08] MEDS: INSULIN SLIDING SCALE (NOVOLOG) 1 VIAL SQ SCH ×2 (05:59→11:19)
[2021-02-08 08:40] LABS: BASO % 0.6 % (0-2.0); EOS % 5.7 % (0-4.5); HEMATOCRIT 34.9 % (32.4-45.2); HEMOGLOBIN 12.1 GM/dL (10.7-15.3); LYMPH % 18.2 % (8-40); MCH 29.6 pg (25.7-33.7); MCHC 34.6 g/dl (32.0-36.0); MEAN CELL VOLUME 85.4 fl (80-96); MEAN PLT VOLUME 8.8 fl (7.5-11.1); MONO % 12.1 % (3.8-10.2); NEUT % 63.4 % (42.8-82.8); PLATELET COUNT 175 K/MM3 (134-434); RBC 4.08 M/mm3 (3.60-5.2); RDW 16.6 % (11.6-15.6); WHITE BLOOD COUNT 3.7 K/mm3 (4.0-10.0)
[2021-02-08 09:02] LABS: ALBUMIN 3.2 g/dl (3.4-5.0); BLOOD UREA NITROGEN 13.6 mg/dL (7-18); CALCIUM 9.1 mg/dL (8.5-10.1)
[2021-02-08 09:05] LABS: CREATININE 1.2 mg/dL (0.55-1.3)
[2021-02-08 09:06] LABS: BILIRUBIN,TOTAL 0.8 mg/dL (0.2-1); TOT PROT 6.3 g/dl (6.4-8.2)
[2021-02-08] MEDS: NIFEdipine E.R. 30 MG TABLET PO SCH (09:47)
[2021-02-08] MEDS: ASPIRIN 81 MG CHEWABLE TABLETS PO SCH (09:47)
[2021-02-08] MEDS: METOPROLOL TARTRATE 25 MG TABLET (FP) PO SCH (09:47)
[2021-02-08] MEDS: HEPARIN NA (PORCINE) 5,000 UNITS/ML 1ML VIAL SQ SCH (09:47)
[2021-02-08] MEDS ORDERED: PT OWN MED DRAWER 7, Y5N ONE (12:32)
[2021-02-08] MEDS: CHOLESTYRAMINE/ASPARTAME 4 GM PACKET PO SCH (12:34)
[2021-02-08 15:54] VITALS: BP 127/81; PULSE 77; TEMP 98.3
[2021-02-08] MEDS ORDERED: ROSUVASTATIN CA 20 MG TABLET (FP) PO SCH (22:00)
[2021-02-09] MEDS ORDERED: sitaGLIPtin PHOSPHATE 50 MG TABLET PO SCH (07:00)
== END 2021-02-08 17:48 | disposition home health service (06) | DRG 684 ==
LOC: JER 10:17 → JERBED 13:45 → J5S 16:59
PROVIDERS: ADMIT Family Medicine; ATTEND Family Medicine
DX: N17.9 Acute kidney failure, unspecified (principal); N18.9 Chronic kidney disease, unspecified; I12.9 Hypertensive chronic kidney disease with stage 1 through stage 4 chronic kidney disease, or unspecified chronic kidney disease; R19.7 Diarrhea, unspecified; E78.00 Pure hypercholesterolemia, unspecified; E11.22 Type 2 diabetes mellitus with diabetic chronic kidney disease; D72.10 Eosinophilia, unspecified; G30.9 Alzheimer's disease, unspecified; E83.42 Hypomagnesemia; E66.9 Obesity, unspecified; Z68.31 Body mass index [BMI] 31.0-31.9, adult; E78.5 Hyperlipidemia, unspecified; F02.80 Dementia in other diseases classified elsewhere, unspecified severity, without behavioral disturbance, psychotic disturbance, mood disturbance, and anxiety; R41.82 Altered mental status, unspecified
CPT/HCPCS: 36415; 70450-TC; 71045-TC-FY; 74176-TC; 80048; 80053; 80074; 81003; 82436; 82570; 82962; 83036; 83735; 84100; 84133; 84300; 84443; 85025; 85027; 86682; 86769; 87045; 87046; 87205; 87324; 87328; 87329; 87449; 87798; 93005; 93010; 97116-GP; 97161-GP; 99285-25; C9803; J1644; J3480; U0003; U0005

== ENCOUNTER 2021-05-05 17:44 | Inpatient (IN) | payer OTHER ==
[2021-05-05 18:36] VITALS: BMI 32.3
[2021-05-05] MEDS ORDERED: ACETAMINOPHEN 1000 MG/100 ML VIAL (NON FORMULARY) IVPB ONE (18:49)
[2021-05-05] MEDS ORDERED: LIDOCAINE 5% TOPICAL PATCH ONE (18:52)
[2021-05-05] MEDS ORDERED: ACETAMINOPHEN INJECTION 100 ML IVPB ONE (18:52)
[2021-05-05] MEDS ORDERED: LIDOCAINE 5% TOPICAL PATCH TP ONE (19:17)
[2021-05-05 19:28] LABS: BASO % 0.7 % (0-2.0); HEMATOCRIT 35.5 % (32.4-45.2); HEMOGLOBIN 11.8 GM/dL (10.7-15.3); LYMPH % 15.9 % (8-40); MCH 29.3 pg (25.7-33.7); MCHC 33.3 g/dl (32.0-36.0); MONO % 8.5 % (3.8-10.2); NEUT % 71.9 % (42.8-82.8); PLATELET COUNT 182 10^3/uL (134-434); RBC 4.03 M/mm3 (3.60-5.2); WHITE BLOOD COUNT 5.2 K/mm3 (4.0-10.0)
[2021-05-05 19:37] LABS: CHLORIDE 108 mmol/L (98-107); SODIUM 141 mmol/L (136-145)
[2021-05-05 19:39] LABS: CALCIUM 8.9 mg/dL (8.5-10.1)
[2021-05-05 19:40] LABS: ALBUMIN 3.4 g/dl (3.4-5.0); ANION GAP 6 MMOL/L (8-16); BLOOD UREA NITROGEN 35.8 mg/dL (7-18); CO2 27 mmol/L (21-32); GLUCOSE,RANDOM 143 mg/dL (74-106)
[2021-05-05 19:43] LABS: CREATININE 1.7 mg/dL (0.55-1.3); SGOT/AST 9 U/L (15-37); SGPT/ALT 14 U/L (13-61)
[2021-05-05 19:44] LABS: BILIRUBIN,TOTAL 0.2 mg/dL (0.2-1)
[2021-05-05 19:45] LABS: TOT PROT 6.4 g/dl (6.4-8.2)
[2021-05-05 19:46] LABS: ALK PHOS 79 U/L (45-117)
[2021-05-05] MEDS ORDERED: SODIUM CHLORIDE 0.9% 500 ML INFUS.BAG IV ONE (21:23)
[2021-05-05] MEDS ORDERED: LIDOCAINE PATCH REMOVAL MC SCH (22:00)
[2021-05-05 22:01] LABS: URINE APPEARANCE CLEAR; URINE BILIRUBIN NEGATIVE (NEGATIVE); URINE COLOR YELLOW; URINE GLUCOSE (UA) NEGATIVE (NEGATIVE); URINE KETONE NEGATIVE (NEGATIVE)
[2021-05-05 22:02] LABS: URINE LEUK ESTERASE TRACE (NEGATIVE); URINE NITRITE NEGATIVE (NEGATIVE); URINE PROTEIN 30 (NEGATIVE); URINE UROBILINOGEN 0.2 mg/dL (0.2-1.0)
[2021-05-06] MEDS ORDERED: hydrALAZINE HCL 20 MG/ML VIAL IVPUSH ONE (00:36)
[2021-05-06] MEDS ORDERED: NITROGLYCERIN 2% OINTMENT - 1GM PACKET TD ONE ×2 (02:48→02:57)
[2021-05-06] MEDS: INSULIN SLIDING SCALE (NOVOLOG) 1 VIAL SQ SCH ×4 (06:16→21:45)
[2021-05-06] MEDS: HEPARIN NA (PORCINE) 5,000 UNITS/ML 1ML VIAL SQ SCH ×3 (06:17→21:45)
[2021-05-06] MEDS ORDERED: LIDOCAINE PATCH REMOVAL MC ONE (07:00)
[2021-05-06 07:23] LABS: EOS % 3.1 % (0-4.5); HEMATOCRIT 37.2 % (32.4-45.2); HEMOGLOBIN 12.6 GM/dL (10.7-15.3); LYMPH % 12.4 % (8-40); MCH 29.7 pg (25.7-33.7); MCHC 33.9 g/dl (32.0-36.0); MEAN CELL VOLUME 87.6 fl (80-96); MEAN PLT VOLUME 9.1 fl (7.5-11.1); MONO % 7.4 % (3.8-10.2); NEUT % 76.1 % (42.8-82.8); PLATELET COUNT 167 10^3/uL (134-434); RBC 4.25 M/mm3 (3.60-5.2); RDW 13.7 % (11.6-15.6); WHITE BLOOD COUNT 5.3 K/mm3 (4.0-10.0)
[2021-05-06 07:33] LABS: INR 1.02 (0.83-1.09); PROTHROMBIN TIME (PATIENT) 12.5 SEC (9.7-13.0)
[2021-05-06 07:35] LABS: ACTIVATED PTT 29.1 SECONDS (25.2-36.5)
[2021-05-06 07:46] LABS: BLOOD UREA NITROGEN 26.3 mg/dL (7-18); CALCIUM 8.9 mg/dL (8.5-10.1)
[2021-05-06 07:50] LABS: CREATININE 1.4 mg/dL (0.55-1.3)
[2021-05-06] MEDS ORDERED: ACETAMINOPHEN 325 MG TABLET (FP) PO PRN (08:01)
[2021-05-06] MEDS ORDERED: hydrALAZINE HCL 20 MG/ML VIAL IM PRN (08:01)
[2021-05-06] MEDS: NIFEdipine E.R. 30 MG TABLET PO SCH (09:41)
[2021-05-06] MEDS: LIDOCAINE 5% TOPICAL PATCH TP SCH (09:41)
[2021-05-06] MEDS: PANTOPRAZOLE 40 MG TABLET PO SCH (09:41)
[2021-05-06] MEDS: ASPIRIN 81 MG CHEWABLE TABLETS PO SCH (09:41)
[2021-05-06] MEDS: VALSARTAN 160 MG TABLET PO SCH (09:41)
[2021-05-06] MEDS ORDERED: METOPROLOL TARTRATE 25 MG TABLET (FP) PO SCH (10:00)
[2021-05-06] MEDS: CHOLESTYRAMINE/ASPARTAME 4 GM PACKET PO SCH (14:04)
[2021-05-06] MEDS: ROSUVASTATIN CA 20 MG TABLET (FP) PO SCH (21:45)
[2021-05-06] MEDS: LIDOCAINE PATCH REMOVAL MC SCH (21:46)
[2021-05-07] MEDS: INSULIN SLIDING SCALE (NOVOLOG) 1 VIAL SQ SCH ×4 (06:45→21:20)
[2021-05-07] MEDS: HEPARIN NA (PORCINE) 5,000 UNITS/ML 1ML VIAL SQ SCH ×3 (06:45→21:20)
[2021-05-07 08:17] LABS: BASO % 1.2 % (0-2.0); EOS % 2.7 % (0-4.5); HEMATOCRIT 39.7 % (32.4-45.2); HEMOGLOBIN 13.1 GM/dL (10.7-15.3); LYMPH % 10.5 % (8-40); MCH 29.2 pg (25.7-33.7); MCHC 33.1 g/dl (32.0-36.0); MEAN PLT VOLUME 9.6 fl (7.5-11.1); MONO % 6.5 % (3.8-10.2); NEUT % 79.1 % (42.8-82.8); PLATELET COUNT 195 10^3/uL (134-434); RBC 4.51 M/mm3 (3.60-5.2); RDW 13.7 % (11.6-15.6); WHITE BLOOD COUNT 5.1 K/mm3 (4.0-10.0)
[2021-05-07 08:21] LABS: ALBUMIN 3.5 g/dl (3.4-5.0); CALCIUM 9.1 mg/dL (8.5-10.1)
[2021-05-07 08:25] LABS: CREATININE 1.4 mg/dL (0.55-1.3)
[2021-05-07 08:26] LABS: BILIRUBIN,TOTAL 0.4 mg/dL (0.2-1)
[2021-05-07] MEDS: NIFEdipine E.R. 30 MG TABLET PO SCH (09:02)
[2021-05-07] MEDS: ASPIRIN 81 MG CHEWABLE TABLETS PO SCH (09:02)
[2021-05-07] MEDS: LIDOCAINE 5% TOPICAL PATCH TP SCH (09:03)
[2021-05-07] MEDS: PANTOPRAZOLE 40 MG TABLET PO SCH (09:03)
[2021-05-07] MEDS: VALSARTAN 160 MG TABLET PO SCH (09:03)
[2021-05-07] MEDS ORDERED: METOPROLOL TARTRATE 25 MG TABLET (FP) PO SCH (10:00)
[2021-05-07] MEDS: CHOLESTYRAMINE/ASPARTAME 4 GM PACKET PO SCH (12:14)
[2021-05-07] MEDS: ROSUVASTATIN CA 20 MG TABLET (FP) PO SCH (21:19)
[2021-05-07] MEDS: LIDOCAINE PATCH REMOVAL MC SCH (21:20)
[2021-05-08] MEDS: HEPARIN NA (PORCINE) 5,000 UNITS/ML 1ML VIAL SQ SCH ×3 (06:24→22:01)
[2021-05-08] MEDS: INSULIN SLIDING SCALE (NOVOLOG) 1 VIAL SQ SCH ×4 (06:25→22:01)
[2021-05-08 07:00] LABS: BASO % 0.6 % (0-2.0); HEMATOCRIT 42.4 % (32.4-45.2); LYMPH % 11.5 % (8-40); MCH 29.3 pg (25.7-33.7); MEAN CELL VOLUME 88.6 fl (80-96); MONO % 6.8 % (3.8-10.2); NEUT % 79.1 % (42.8-82.8); PLATELET COUNT 216 10^3/uL (134-434); RBC 4.78 M/mm3 (3.60-5.2); RDW 13.7 % (11.6-15.6); WHITE BLOOD COUNT 5.8 K/mm3 (4.0-10.0)
[2021-05-08 07:37] LABS: CALCIUM 9.2 mg/dL (8.5-10.1)
[2021-05-08 07:38] LABS: BLOOD UREA NITROGEN 30.2 mg/dL (7-18); MAGNESIUM 2.2 mg/dL (1.8-2.4)
[2021-05-08 07:41] LABS: CREATININE 1.8 mg/dL (0.55-1.3)
[2021-05-08] MEDS ORDERED: PT OWN MED DRAWER 7, Y5N ONE (08:43)
[2021-05-08] MEDS: NIFEdipine E.R. 30 MG TABLET PO SCH (09:05)
[2021-05-08] MEDS: PANTOPRAZOLE 40 MG TABLET PO SCH (09:05)
[2021-05-08] MEDS: VALSARTAN 160 MG TABLET PO SCH (09:05)
[2021-05-08] MEDS: ASPIRIN 81 MG CHEWABLE TABLETS PO SCH (09:05)
[2021-05-08] MEDS: LIDOCAINE 5% TOPICAL PATCH TP SCH (09:05)
[2021-05-08] MEDS: CYCLOBENZAPRINE HCL 5 MG TABLET PO SCH (09:10)
[2021-05-08 09:49] LABS: ERYTHROCYTE SEDIMENTATION RATE 33 mm/hr (0-30)
[2021-05-08] MEDS: METOPROLOL TARTRATE 25 MG TABLET (FP) PO SCH ×4 (12:56→13:16)
[2021-05-08] MEDS: CHOLESTYRAMINE/ASPARTAME 4 GM PACKET PO SCH (13:17)
[2021-05-08] MEDS: ROSUVASTATIN CA 20 MG TABLET (FP) PO SCH (22:01)
[2021-05-08] MEDS: LIDOCAINE PATCH REMOVAL MC SCH (22:01)
[2021-05-09] MEDS: HEPARIN NA (PORCINE) 5,000 UNITS/ML 1ML VIAL SQ SCH (05:21)
[2021-05-09] MEDS: INSULIN SLIDING SCALE (NOVOLOG) 1 VIAL SQ SCH (06:00)
[2021-05-09 09:19] VITALS: BP 155/87; PULSE 71; TEMP 98.2
[2021-05-09] MEDS ORDERED: PT OWN MED DRAWER 7, Y5N ONE (09:22)
[2021-05-09] MEDS: ASPIRIN 81 MG CHEWABLE TABLETS PO SCH (09:23)
[2021-05-09] MEDS: METOPROLOL TARTRATE 25 MG TABLET (FP) PO SCH (09:23)
[2021-05-09] MEDS: NIFEdipine E.R. 30 MG TABLET PO SCH (09:24)
[2021-05-09] MEDS: PANTOPRAZOLE 40 MG TABLET PO SCH (09:24)
[2021-05-09] MEDS: VALSARTAN 160 MG TABLET PO SCH (09:24)
[2021-05-09] MEDS: CYCLOBENZAPRINE HCL 5 MG TABLET PO SCH (09:24)
[2021-05-09] MEDS: LIDOCAINE 5% TOPICAL PATCH TP SCH (09:24)
[2021-05-09 23:07] LABS: MYOGLOBIN SERUM 33 ng/mL (25-58)
== END 2021-05-09 13:45 | disposition home health service (06) | DRG 683 ==
LOC: JER 17:44 → JERBED 23:59 → J4S 05-06 03:49
PROVIDERS: ADMIT Internal Medicine; ATTEND Family Medicine
DX: N17.9 Acute kidney failure, unspecified (principal); N39.0 Urinary tract infection, site not specified; E11.40 Type 2 diabetes mellitus with diabetic neuropathy, unspecified; Z85.41 Personal history of malignant neoplasm of cervix uteri; E78.5 Hyperlipidemia, unspecified; N18.9 Chronic kidney disease, unspecified; S29.009A Unspecified injury of muscle and tendon of unspecified wall of thorax, initial encounter; I12.9 Hypertensive chronic kidney disease with stage 1 through stage 4 chronic kidney disease, or unspecified chronic kidney disease; W19.XXXA Unspecified fall, initial encounter; Y93.9 Activity, unspecified; Y92.89 Other specified places as the place of occurrence of the external cause; Y99.9 Unspecified external cause status
CPT/HCPCS: 36415; 70450-TC; 71045-TC-FY; 72125-TC; 72131-TC; 72170-TC-FY; 80048; 80053; 81003; 82085; 82550; 82962; 83036; 83735; 83874; 84484; 85025; 85610; 85651; 85730; 86038; 87077; 87086; 87186; 93005; 93010; 97116-GP; 97161-GP; 99285-25; C9803; J0131; J1644; U0003; U0005

== ENCOUNTER 2021-07-28 17:14 | Inpatient (IN) | payer OTHER ==
[2021-07-28] MEDS ORDERED: ACETAMINOPHEN 1000 MG/100 ML VIAL (NON FORMULARY) IVPB ONE (17:53)
[2021-07-28] MEDS ORDERED: LACTATED RINGERS SOLUTION 1000 ML INFUS.BAG IV ONE (17:53)
[2021-07-28] MEDS ORDERED: ACETAMINOPHEN INJECTION 100 ML IVPB ONE (18:57)
[2021-07-28 19:18] LABS: BASO % 0.4 % (0-2.0); EOS % 2.9 % (0-4.5); HEMATOCRIT 37.3 % (32.4-45.2); HEMOGLOBIN 12.5 GM/dL (10.7-15.3); MCH 29.5 pg (25.7-33.7); MCHC 33.6 g/dl (32.0-36.0); MEAN CELL VOLUME 87.6 fl (80-96); MEAN PLT VOLUME 9.6 fl (7.5-11.1); MONO % 10.8 % (3.8-10.2); NEUT % 70.9 % (42.8-82.8); PLATELET COUNT 181 10^3/uL (134-434); RBC 4.26 M/mm3 (3.60-5.2); RDW 15.5 % (11.6-15.6); WHITE BLOOD COUNT 5.3 K/mm3 (4.0-10.0)
[2021-07-28 19:19] LABS: EPI CELLS 17 /uL (0-25.1); HYALINE CASTS 0 /uL (0-3.1); URINE APPEARANCE CLOUDY; URINE BACTERIA 241 /uL (0-1359); URINE BILIRUBIN NEGATIVE (NEGATIVE); URINE COLOR YELLOW; URINE GLUCOSE (UA) TRACE (NEGATIVE); URINE KETONE NEGATIVE (NEGATIVE); URINE LEUK ESTERASE 3+ (NEGATIVE); URINE NITRITE NEGATIVE (NEGATIVE); URINE PROTEIN TRACE (NEGATIVE); URINE RBC 16 /uL (0-23.9); URINE UROBILINOGEN 0.2 mg/dL (0.2-1.0); URINE WBC 1190 /uL (0-25.8)
[2021-07-28] MEDS ORDERED: CEFTRIAXONE 1 GM in DEXTROSE 5%-WATER - 100 ML IVPB ONE (19:19)
[2021-07-28] MEDS ORDERED: CEFTRIAXONE 1 GM/50 ML BAG ONE (19:38)
[2021-07-28 19:57] LABS: ALBUMIN 3.2 g/dl (3.4-5.0); CALCIUM 8.9 mg/dL (8.5-10.1); CO2 27 mmol/L (21-32); GLUCOSE,RANDOM 302 mg/dL (74-106)
[2021-07-28 20:02] LABS: BILIRUBIN,TOTAL 0.5 mg/dL (0.2-1); TOT PROT 7.1 g/dl (6.4-8.2)
[2021-07-28 20:03] LABS: ALK PHOS 97 U/L (45-117); ANION GAP 8 MMOL/L (8-16); CHLORIDE 102 mmol/L (98-107); SODIUM 136 mmol/L (136-145)
[2021-07-28 20:05] LABS: SGPT/ALT 19 U/L (13-61)
[2021-07-28] MEDS ORDERED: INSULIN (NOVOLOG) ASPART 100 UNITS/ML 10ML VIAL SQ ONE (20:06)
[2021-07-28 20:09] LABS: SGOT/AST 24 U/L (15-37)
[2021-07-29] MEDS ORDERED: LIDOCAINE 5% TOPICAL PATCH TP PRN (00:28)
[2021-07-29] MEDS ORDERED: ACETAMINOPHEN 325 MG TABLET (FP) PO PRN (00:28)
[2021-07-29 00:54] VITALS: BMI 28.6
[2021-07-29] MEDS: HEPARIN NA (PORCINE) 5,000 UNITS/ML 1ML VIAL SQ SCH ×3 (06:30→21:15)
[2021-07-29] MEDS ORDERED: INSULIN SLIDING SCALE (NOVOLOG) 1 VIAL SQ SCH (07:00)
[2021-07-29] MEDS ORDERED: PT OWN MED DRAWER 7, Y5N ONE ×2 (07:51→09:04)
[2021-07-29 08:17] LABS: BASO % 0.5 % (0-2.0); EOS % 2.7 % (0-4.5); HEMATOCRIT 39.4 % (32.4-45.2); HEMOGLOBIN 13.4 GM/dL (10.7-15.3); LYMPH % 13.7 % (8-40); MCH 29.8 pg (25.7-33.7); MEAN CELL VOLUME 87.7 fl (80-96); MEAN PLT VOLUME 10.2 fl (7.5-11.1); MONO % 8.2 % (3.8-10.2); NEUT % 74.9 % (42.8-82.8); PLATELET COUNT 182 10^3/uL (134-434); RBC 4.49 M/mm3 (3.60-5.2); RDW 15.6 % (11.6-15.6); WHITE BLOOD COUNT 6.4 K/mm3 (4.0-10.0)
[2021-07-29 09:01] LABS: BLOOD UREA NITROGEN 34.5 mg/dL (7-18); CALCIUM 9.2 mg/dL (8.5-10.1)
[2021-07-29 09:05] LABS: CREATININE 1.4 mg/dL (0.55-1.3)
[2021-07-29] MEDS: ASPIRIN 81 MG CHEWABLE TABLETS PO SCH (09:07)
[2021-07-29] MEDS: LIPASE/PROTEASE/AMYLASE 6,000 UNIT CAPSULE PO SCH ×3 (09:07→17:29)
[2021-07-29] MEDS: FLUoxetine HCL 20 MG CAPSULE PO SCH (09:08)
[2021-07-29] MEDS: PANTOPRAZOLE 40 MG TABLET PO SCH (09:08)
[2021-07-29] MEDS: TIOTROPIUM BROMIDE 2.5 MCG (SPIRIVA) RESPIMAT INHALER IH SCH (09:19)
[2021-07-29] MEDS ORDERED: LOSARTAN POTASSIUM 50 MG TABLET PO SCH (10:00)
[2021-07-29] MEDS ORDERED: METOPROLOL TARTRATE 50 MG TABLET (FP) PO SCH (10:00)
[2021-07-29] MEDS ORDERED: INSULIN (LEVEMIR) 100 UNITS/ML UNITS SQ ONE (10:44)
[2021-07-29] MEDS ORDERED: INSULIN (NOVOLOG) ASPART 100 UNITS/ML 10ML VIAL ONE ×2 (11:30→21:07)
[2021-07-29] MEDS: INSULIN SLIDING SCALE (NOVOLOG) 1 VIAL SQ SCH ×3 (11:32→21:22)
[2021-07-29] MEDS: NIFEdipine E.R. 90 MG TABLET PO SCH (11:34)
[2021-07-29] MEDS: FUROSEMIDE 40 MG TABLET (FP) PO SCH (11:46)
[2021-07-29] MEDS ORDERED: DEXTROSE 5%-WATER - 50 ML IVPB ONE (21:07)
[2021-07-29] MEDS ORDERED: cefTRIAXone SODIUM 1 GM VIAL ONE (21:07)
[2021-07-29] MEDS: CEFTRIAXONE 1 GM in DEXTROSE 5%-WATER - 50 ML IVPB SCH (21:14)
[2021-07-29] MEDS: INSULIN (LEVEMIR) 100 UNITS/ML UNITS SQ SCH (21:16)
[2021-07-29] MEDS: LIDOCAINE PATCH REMOVAL MC SCH (21:17)
[2021-07-29] MEDS: METOPROLOL TARTRATE 50 MG TABLET (FP) PO SCH (21:18)
[2021-07-29] MEDS: ROSUVASTATIN CA 20 MG TABLET (FP) PO SCH (21:19)
[2021-07-30] MEDS ORDERED: PT OWN MED DRAWER 7, Y5N ONE ×4 (00:46→22:02)
[2021-07-30] MEDS: GABAPENTIN 400 MG CAPSULE PO SCH ×2 (00:48→22:00)
[2021-07-30] MEDS: AMITRIPTYLINE HCL 10 MG TABLET PO SCH ×2 (00:48→22:02)
[2021-07-30] MEDS: HEPARIN NA (PORCINE) 5,000 UNITS/ML 1ML VIAL SQ SCH ×3 (05:34→22:02)
[2021-07-30] MEDS: INSULIN (LEVEMIR) 100 UNITS/ML UNITS SQ SCH ×2 (06:13→22:09)
[2021-07-30] MEDS: INSULIN SLIDING SCALE (NOVOLOG) 1 VIAL SQ SCH ×4 (06:14→22:08)
[2021-07-30] MEDS: LIPASE/PROTEASE/AMYLASE 6,000 UNIT CAPSULE PO SCH ×3 (08:28→17:12)
[2021-07-30] MEDS ORDERED: cefTRIAXone SODIUM 1 GM VIAL ONE (10:30)
[2021-07-30] MEDS ORDERED: DEXTROSE 5%-WATER - 50 ML IVPB ONE (10:30)
[2021-07-30] MEDS: CEFTRIAXONE 1 GM in DEXTROSE 5%-WATER - 50 ML IVPB SCH (10:42)
[2021-07-30] MEDS: FUROSEMIDE 40 MG TABLET (FP) PO SCH (10:43)
[2021-07-30] MEDS: ASPIRIN 81 MG CHEWABLE TABLETS PO SCH (10:43)
[2021-07-30] MEDS: FLUoxetine HCL 20 MG CAPSULE PO SCH (10:43)
[2021-07-30] MEDS: NIFEdipine E.R. 90 MG TABLET PO SCH (10:43)
[2021-07-30] MEDS: PANTOPRAZOLE 40 MG TABLET PO SCH (10:43)
[2021-07-30] MEDS: METOPROLOL TARTRATE 50 MG TABLET (FP) PO SCH ×2 (11:00→22:02)
[2021-07-30] MEDS ORDERED: INSULIN (NOVOLOG) ASPART 100 UNITS/ML 10ML VIAL ONE (11:11)
[2021-07-30] MEDS: TIOTROPIUM BROMIDE 2.5 MCG (SPIRIVA) RESPIMAT INHALER IH SCH (11:13)
[2021-07-30 12:27] LABS: BASO % 0.9 % (0-2.0); EOS % 3.1 % (0-4.5); HEMATOCRIT 38.5 % (32.4-45.2); MCH 29.7 pg (25.7-33.7); MCHC 33.8 g/dl (32.0-36.0); MONO % 9.6 % (3.8-10.2); NEUT % 69.4 % (42.8-82.8); PLATELET COUNT 191 10^3/uL (134-434); RBC 4.38 M/mm3 (3.60-5.2); RDW 15.5 % (11.6-15.6); WHITE BLOOD COUNT 4.3 K/mm3 (4.0-10.0)
[2021-07-30 12:41] LABS: CHLORIDE 103 mmol/L (98-107); SODIUM 137 mmol/L (136-145)
[2021-07-30 12:46] LABS: GLUCOSE,RANDOM 234 mg/dL (74-106)
[2021-07-30 12:50] LABS: ALBUMIN 2.9 g/dl (3.4-5.0); BLOOD UREA NITROGEN 30.8 mg/dL (7-18); CALCIUM 8.9 mg/dL (8.5-10.1)
[2021-07-30 12:51] LABS: ANION GAP 9 MMOL/L (8-16); CO2 25 mmol/L (21-32)
[2021-07-30 12:54] LABS: CREATININE 1.5 mg/dL (0.55-1.3); SGOT/AST 19 U/L (15-37); SGPT/ALT 18 U/L (13-61)
[2021-07-30 12:55] LABS: BILIRUBIN,TOTAL 0.2 mg/dL (0.2-1)
[2021-07-30 12:57] LABS: ALK PHOS 105 U/L (45-117)
[2021-07-30] MEDS ORDERED: INSULIN (LEVEMIR) 100 UNITS/ML UNITS SQ ONE ×2 (21:32)
[2021-07-30] MEDS: ROSUVASTATIN CA 20 MG TABLET (FP) PO SCH (22:00)
[2021-07-30] MEDS: LIDOCAINE PATCH REMOVAL MC SCH (22:02)
[2021-07-31] MEDS: INSULIN (LEVEMIR) 100 UNITS/ML UNITS SQ SCH ×2 (06:10→21:44)
[2021-07-31] MEDS: HEPARIN NA (PORCINE) 5,000 UNITS/ML 1ML VIAL SQ SCH ×3 (06:10→21:44)
[2021-07-31] MEDS: INSULIN SLIDING SCALE (NOVOLOG) 1 VIAL SQ SCH ×4 (06:11→22:31)
[2021-07-31] MEDS: LIPASE/PROTEASE/AMYLASE 6,000 UNIT CAPSULE PO SCH ×3 (08:09→16:59)
[2021-07-31] MEDS ORDERED: DEXTROSE 5%-WATER - 50 ML IVPB ONE (10:01)
[2021-07-31] MEDS ORDERED: cefTRIAXone SODIUM 1 GM VIAL ONE (10:01)
[2021-07-31] MEDS: FLUoxetine HCL 20 MG CAPSULE PO SCH (10:09)
[2021-07-31] MEDS: PANTOPRAZOLE 40 MG TABLET PO SCH (10:09)
[2021-07-31] MEDS: FUROSEMIDE 40 MG TABLET (FP) PO SCH (10:09)
[2021-07-31] MEDS: ASPIRIN 81 MG CHEWABLE TABLETS PO SCH (10:09)
[2021-07-31] MEDS: NIFEdipine E.R. 90 MG TABLET PO SCH (10:09)
[2021-07-31] MEDS: CEFTRIAXONE 1 GM in DEXTROSE 5%-WATER - 50 ML IVPB SCH (10:10)
[2021-07-31] MEDS: METOPROLOL TARTRATE 50 MG TABLET (FP) PO SCH ×2 (10:10→21:43)
[2021-07-31] MEDS: TIOTROPIUM BROMIDE 2.5 MCG (SPIRIVA) RESPIMAT INHALER IH SCH (10:11)
[2021-07-31 10:54] LABS: BASO % 0.9 % (0-2.0); EOS % 3.4 % (0-4.5); HEMATOCRIT 36.3 % (32.4-45.2); HEMOGLOBIN 12.4 GM/dL (10.7-15.3); LYMPH % 14.9 % (8-40); MCH 29.9 pg (25.7-33.7); MCHC 34.1 g/dl (32.0-36.0); MEAN CELL VOLUME 87.6 fl (80-96); MEAN PLT VOLUME 10.1 fl (7.5-11.1); MONO % 9.6 % (3.8-10.2); NEUT % 71.2 % (42.8-82.8); PLATELET COUNT 208 10^3/uL (134-434); RBC 4.14 M/mm3 (3.60-5.2); RDW 15.5 % (11.6-15.6); WHITE BLOOD COUNT 4.2 K/mm3 (4.0-10.0)
[2021-07-31 11:08] LABS: ALBUMIN 2.9 g/dl (3.4-5.0); BLOOD UREA NITROGEN 31.8 mg/dL (7-18); CALCIUM 8.9 mg/dL (8.5-10.1)
[2021-07-31 11:11] LABS: CREATININE 1.6 mg/dL (0.55-1.3)
[2021-07-31 11:13] LABS: BILIRUBIN,TOTAL 0.2 mg/dL (0.2-1); TOT PROT 6.5 g/dl (6.4-8.2)
[2021-07-31] MEDS: LIDOCAINE PATCH REMOVAL MC SCH ×2 (21:44→22:00)
[2021-07-31] MEDS: ROSUVASTATIN CA 20 MG TABLET (FP) PO SCH (21:44)
[2021-07-31] MEDS: GABAPENTIN 400 MG CAPSULE PO SCH (21:44)
[2021-07-31] MEDS ORDERED: INSULIN (LEVEMIR) 100 UNITS/ML UNITS SQ SCH (22:00)
[2021-08-01] MEDS: HEPARIN NA (PORCINE) 5,000 UNITS/ML 1ML VIAL SQ SCH (06:23)
[2021-08-01] MEDS: INSULIN (LEVEMIR) 100 UNITS/ML UNITS SQ SCH (06:23)
[2021-08-01] MEDS: INSULIN SLIDING SCALE (NOVOLOG) 1 VIAL SQ SCH ×2 (06:24→11:59)
[2021-08-01] MEDS ORDERED: PT OWN MED DRAWER 7, Y5N ONE ×2 (08:32→09:54)
[2021-08-01] MEDS: LIPASE/PROTEASE/AMYLASE 6,000 UNIT CAPSULE PO SCH ×2 (08:36→12:00)
[2021-08-01] MEDS ORDERED: cefTRIAXone SODIUM 1 GM VIAL ONE (09:55)
[2021-08-01] MEDS ORDERED: DEXTROSE 5%-WATER - 50 ML IVPB ONE (09:55)
[2021-08-01] MEDS: METOPROLOL TARTRATE 50 MG TABLET (FP) PO SCH (10:03)
[2021-08-01] MEDS: CEFTRIAXONE 1 GM in DEXTROSE 5%-WATER - 50 ML IVPB SCH (10:03)
[2021-08-01] MEDS: FLUoxetine HCL 20 MG CAPSULE PO SCH (10:03)
[2021-08-01] MEDS: ASPIRIN 81 MG CHEWABLE TABLETS PO SCH (10:03)
[2021-08-01] MEDS: NIFEdipine E.R. 90 MG TABLET PO SCH (10:04)
[2021-08-01] MEDS: FUROSEMIDE 40 MG TABLET (FP) PO SCH (10:04)
[2021-08-01] MEDS: PANTOPRAZOLE 40 MG TABLET PO SCH (10:04)
[2021-08-01] MEDS: TIOTROPIUM BROMIDE 2.5 MCG (SPIRIVA) RESPIMAT INHALER IH SCH (10:10)
[2021-08-01 12:21] VITALS: BP 120/70; PULSE 70; TEMP 98
== END 2021-08-01 13:32 | disposition home health service (06) | DRG 74 ==
LOC: JER 17:14 → JERBED 19:44 → J6S 07-29 00:03
PROVIDERS: ADMIT Internal Medicine; ATTEND Family Medicine
DX: E11.42 Type 2 diabetes mellitus with diabetic polyneuropathy (principal); N17.9 Acute kidney failure, unspecified; N30.00 Acute cystitis without hematuria; E11.40 Type 2 diabetes mellitus with diabetic neuropathy, unspecified; E78.5 Hyperlipidemia, unspecified; G30.9 Alzheimer's disease, unspecified; F02.80 Dementia in other diseases classified elsewhere, unspecified severity, without behavioral disturbance, psychotic disturbance, mood disturbance, and anxiety; I44.0 Atrioventricular block, first degree; E11.65 Type 2 diabetes mellitus with hyperglycemia; I12.9 Hypertensive chronic kidney disease with stage 1 through stage 4 chronic kidney disease, or unspecified chronic kidney disease; E11.22 Type 2 diabetes mellitus with diabetic chronic kidney disease; N18.9 Chronic kidney disease, unspecified; Z79.4 Long term (current) use of insulin; Z79.84 Long term (current) use of oral hypoglycemic drugs
CPT/HCPCS: 36415; 70450-TC; 71045-TC-FY; 72125-TC; 73523-TC-FY; 80048; 80053; 81003; 82550; 82553; 82962; 83036; 84484; 85025; 87077; 87086; 93005; 93010; 97116-GP; 97162-GP; 99285-25; C9803; J0131; J1644; U0003; U0005

== ENCOUNTER 2021-11-15 15:54 | Observation (INO) | payer OTHER ==
[2021-11-15 18:55] LABS: BASO % 0.6 % (0-2.0); EOS % 2.1 % (0-4.5); HEMATOCRIT 37.2 % (32.4-45.2); HEMOGLOBIN 12.9 GM/dL (10.7-15.3); LYMPH % 15.4 % (8-40); MCHC 34.6 g/dl (32.0-36.0); MEAN CELL VOLUME 86.8 fl (80-96); MEAN PLT VOLUME 9.2 fl (7.5-11.1); MONO % 8.9 % (3.8-10.2); PLATELET COUNT 191 10^3/uL (134-434); RBC 4.29 M/mm3 (3.60-5.2); RDW 14.4 % (11.6-15.6); WHITE BLOOD COUNT 5.1 K/mm3 (4.0-10.0)
[2021-11-15 18:59] LABS: INR 0.95 (0.83-1.09); PROTHROMBIN TIME (PATIENT) 10.9 SEC (9.7-13.0)
[2021-11-15 19:02] LABS: ACTIVATED PTT 29.7 SECONDS (25.2-36.5)
[2021-11-15 19:14] LABS: CHLORIDE 103 mmol/L (98-107); SODIUM 139 mmol/L (136-145)
[2021-11-15 19:26] LABS: ALBUMIN 3.8 g/dl (3.4-5.0)
[2021-11-15 19:27] LABS: ANION GAP 8 MMOL/L (8-16); BLOOD UREA NITROGEN 39.7 mg/dL (7-18); CALCIUM 9.6 mg/dL (8.5-10.1); CO2 29 mmol/L (21-32); GLUCOSE,RANDOM 181 mg/dL (74-106); MAGNESIUM 2.2 mg/dL (1.8-2.4)
[2021-11-15 19:30] LABS: CREATININE 1.9 mg/dL (0.55-1.3); SGOT/AST 12 U/L (15-37); SGPT/ALT 22 U/L (13-61)
[2021-11-15 19:32] LABS: BILIRUBIN,TOTAL 0.3 mg/dL (0.2-1); TOT PROT 7.2 g/dl (6.4-8.2)
[2021-11-15 19:33] LABS: ALK PHOS 109 U/L (45-117)
[2021-11-15] MEDS ORDERED: ACETAMINOPHEN 325 MG TABLET (FP) PO PRN (20:39)
[2021-11-15] MEDS ORDERED: POLYETHYLENE GLYCOL (HEALTHYLAX) 3350 17 GM PACKET PO PRN (20:39)
[2021-11-15 21:08] LABS: URINE APPEARANCE CLEAR; URINE BILIRUBIN NEGATIVE (NEGATIVE); URINE COLOR YELLOW; URINE GLUCOSE (UA) TRACE (NEGATIVE); URINE KETONE NEGATIVE (NEGATIVE); URINE LEUK ESTERASE NEGATIVE (NEGATIVE); URINE NITRITE NEGATIVE (NEGATIVE); URINE PROTEIN TRACE (NEGATIVE); URINE UROBILINOGEN 0.2 mg/dL (0.2-1.0)
[2021-11-15] MEDS: INSULIN SLIDING SCALE (NOVOLOG) 1 VIAL SQ SCH (21:56)
[2021-11-16] MEDS ORDERED: ACETAMINOPHEN 325 MG TABLET (FP) PO PRN (07:24)
[2021-11-16] MEDS ORDERED: ALBUTEROL SO4 HFA INHALER IH PRN (07:37)
[2021-11-16 07:44] LABS: BASO % 0.5 % (0-2.0); HEMATOCRIT 37.5 % (32.4-45.2); HEMOGLOBIN 12.7 GM/dL (10.7-15.3); LYMPH % 15.1 % (8-40); MCH 29.6 pg (25.7-33.7); MCHC 33.9 g/dl (32.0-36.0); MEAN CELL VOLUME 87.3 fl (80-96); MEAN PLT VOLUME 9.5 fl (7.5-11.1); MONO % 7.1 % (3.8-10.2); NEUT % 75.3 % (42.8-82.8); PLATELET COUNT 175 10^3/uL (134-434); RDW 14.5 % (11.6-15.6); WHITE BLOOD COUNT 5.1 K/mm3 (4.0-10.0)
[2021-11-16] MEDS ORDERED: ACETAMINOPHEN 500 MG TABLET (FP) PO PRN (07:46)
[2021-11-16 07:59] LABS: CHLORIDE 106 mmol/L (98-107); SODIUM 141 mmol/L (136-145)
[2021-11-16] MEDS: PANTOPRAZOLE 40 MG TABLET PO SCH (08:00)
[2021-11-16 08:01] LABS: CALCIUM 9.5 mg/dL (8.5-10.1)
[2021-11-16 08:02] LABS: ANION GAP 7 MMOL/L (8-16); BLOOD UREA NITROGEN 35.6 mg/dL (7-18); CO2 27 mmol/L (21-32); GLUCOSE,RANDOM 219 mg/dL (74-106)
[2021-11-16 08:05] LABS: CREATININE 1.6 mg/dL (0.55-1.3)
[2021-11-16] MEDS: LIPASE/PROTEASE/AMYLASE 36,000 UNIT CAPSULE PO SCH ×3 (08:10→18:00)
[2021-11-16] MEDS ORDERED: PANTOPRAZOLE 40 MG TABLET ONE (08:28)
[2021-11-16] MEDS: INSULIN SLIDING SCALE (NOVOLOG) 1 VIAL SQ SCH ×4 (08:36→22:08)
[2021-11-16] MEDS ORDERED: ASPIRIN 81 MG CHEWABLE TABLETS ONE (09:28)
[2021-11-16] MEDS ORDERED: APIXABAN 2.5 MG TABLET ONE (09:28)
[2021-11-16] MEDS ORDERED: FUROSEMIDE 40 MG TABLET (FP) ONE (09:28)
[2021-11-16] MEDS ORDERED: NIFEdipine E.R. 30 MG TABLET ONE (09:29)
[2021-11-16] MEDS ORDERED: METOPROLOL TARTRATE 50 MG TABLET (FP) ONE (09:29)
[2021-11-16] MEDS: NIFEdipine E.R. 30 MG TABLET PO SCH (09:35)
[2021-11-16] MEDS: ASPIRIN 81 MG CHEWABLE TABLETS PO SCH (09:35)
[2021-11-16] MEDS: FUROSEMIDE 40 MG TABLET (FP) PO SCH (09:35)
[2021-11-16] MEDS: METOPROLOL TARTRATE 50 MG TABLET (FP) PO SCH ×2 (09:35→22:08)
[2021-11-16] MEDS: FLUoxetine HCL 20 MG CAPSULE PO SCH (09:35)
[2021-11-16] MEDS: APIXABAN 2.5 MG TABLET PO SCH ×2 (09:35→22:08)
[2021-11-16] MEDS ORDERED: LINZESS 145 MCG PO SCH (10:00)
[2021-11-16] MEDS ORDERED: AMITRIPTYLINE HCL 10 MG TABLET PO SCH (22:00)
[2021-11-16] MEDS ORDERED: ROSUVASTATIN CA 40 MG TABLET PO SCH (22:00)
[2021-11-17] MEDS: PANTOPRAZOLE 40 MG TABLET PO SCH (06:27)
[2021-11-17] MEDS: INSULIN SLIDING SCALE (NOVOLOG) 1 VIAL SQ SCH ×2 (06:34→11:08)
[2021-11-17] MEDS: LIPASE/PROTEASE/AMYLASE 36,000 UNIT CAPSULE PO SCH ×2 (08:33→12:16)
[2021-11-17 09:41] LABS: BASO % 0.9 % (0-2.0); EOS % 2.3 % (0-4.5); HEMATOCRIT 38.1 % (32.4-45.2); HEMOGLOBIN 12.6 GM/dL (10.7-15.3); LYMPH % 16.5 % (8-40); MCH 28.9 pg (25.7-33.7); MCHC 33.2 g/dl (32.0-36.0); MEAN PLT VOLUME 9.6 fl (7.5-11.1); MONO % 6.7 % (3.8-10.2); NEUT % 73.6 % (42.8-82.8); PLATELET COUNT 204 10^3/uL (134-434); RBC 4.38 M/mm3 (3.60-5.2); RDW 14.4 % (11.6-15.6); WHITE BLOOD COUNT 5.1 K/mm3 (4.0-10.0)
[2021-11-17 09:55] LABS: CALCIUM 9.8 mg/dL (8.5-10.1)
[2021-11-17 09:56] LABS: ALBUMIN 3.5 g/dl (3.4-5.0); BLOOD UREA NITROGEN 36.2 mg/dL (7-18); MAGNESIUM 2.2 mg/dL (1.8-2.4)
[2021-11-17 09:57] LABS: CREATININE 1.8 mg/dL (0.55-1.3)
[2021-11-17 09:59] LABS: BILIRUBIN,TOTAL 0.3 mg/dL (0.2-1)
[2021-11-17] MEDS: NIFEdipine E.R. 30 MG TABLET PO SCH (11:03)
[2021-11-17] MEDS: FUROSEMIDE 40 MG TABLET (FP) PO SCH (11:04)
[2021-11-17] MEDS: METOPROLOL TARTRATE 50 MG TABLET (FP) PO SCH (11:04)
[2021-11-17] MEDS: APIXABAN 2.5 MG TABLET PO SCH (11:04)
[2021-11-17] MEDS: ASPIRIN 81 MG CHEWABLE TABLETS PO SCH (11:04)
[2021-11-17] MEDS: FLUoxetine HCL 20 MG CAPSULE PO SCH (11:05)
[2021-11-17 12:28] VITALS: BP 137/80; PULSE 59; TEMP 98.2
[2021-11-17 13:41] VITALS: BMI 32.9
== END 2021-11-17 13:20 | disposition home or self-care (01) ==
LOC: JER 15:54 → UNDOADMOB 17:44 → JERBED 17:44 → OBSVTOIN 11-16 17:44 → INTOOBSV 11-16 17:44 → J5S 11-16 20:17 → JERBED 11-16 20:17 → J5S 11-16 20:17
PROVIDERS: ADMIT Internal Medicine; ATTEND Family Medicine
PROC: 3E013VG Introduction of Insulin into Subcutaneous Tissue, Percutaneous Approach (ICD-10-PCS; principal; 2021-11-15)
DX: I13.10 Hypertensive heart and chronic kidney disease without heart failure, with stage 1 through stage 4 chronic kidney disease, or unspecified chronic kidney disease (principal); E11.69 Type 2 diabetes mellitus with other specified complication; E11.22 Type 2 diabetes mellitus with diabetic chronic kidney disease; R07.89 Other chest pain; E78.5 Hyperlipidemia, unspecified; N18.9 Chronic kidney disease, unspecified; M19.90 Unspecified osteoarthritis, unspecified site; R01.1 Cardiac murmur, unspecified; N17.9 Acute kidney failure, unspecified; Z29.9 Encounter for prophylactic measures, unspecified; F03.90 Unspecified dementia, unspecified severity, without behavioral disturbance, psychotic disturbance, mood disturbance, and anxiety; R29.6 Repeated falls; Z68.33 Body mass index [BMI] 33.0-33.9, adult; K52.9 Noninfective gastroenteritis and colitis, unspecified; Z79.01 Long term (current) use of anticoagulants; R55 Syncope and collapse; E66.9 Obesity, unspecified; Z86.79 Personal history of other diseases of the circulatory system; Z86.59 Personal history of other mental and behavioral disorders; Z86.718 Personal history of other venous thrombosis and embolism; Z85.41 Personal history of malignant neoplasm of cervix uteri; Z86.39 Personal history of other endocrine, nutritional and metabolic disease
CPT/HCPCS: 36415; 70450-TC; 71045-TC-FY; 72125-TC; 80048; 80053; 81003; 82550; 82962; 83735; 84443; 84484; 85025; 85610; 85730; 87086; 93005; 93010; 96372; 99285-25; C9803; G0378; U0003; U0005

== ENCOUNTER 2022-09-04 09:16 | Inpatient (IN) | payer OTHER ==
[2022-09-04] MEDS ORDERED: LACTATED RINGERS SOLUTION 1000 ML INFUS.BAG IV ONE (09:44)
[2022-09-04 10:38] LABS: BASO % 0.4 % (0-2.0); HEMATOCRIT 47.7 % (32.4-45.2); HEMOGLOBIN 15.9 GM/dL (10.7-15.3); LYMPH % 3.7 % (8-40); MCH 28.4 pg (25.7-33.7); MCHC 33.5 g/dl (32.0-36.0); MEAN CELL VOLUME 84.8 fl (80-96); MEAN PLT VOLUME 9.6 fl (7.5-11.1); MONO % 6.7 % (3.8-10.2); NEUT % 89.2 % (42.8-82.8); PLATELET COUNT 310 10^3/uL (134-434); RBC 5.62 M/mm3 (3.60-5.2); RDW 15.5 % (11.6-15.6); WHITE BLOOD COUNT 11.6 K/mm3 (4.0-10.0)
[2022-09-04 10:44] LABS: INR 1.07 (0.83-1.09); PROTHROMBIN TIME (PATIENT) 12.3 SEC (9.7-13.0)
[2022-09-04 10:47] LABS: ACTIVATED PTT 33.3 SECONDS (25.2-36.5)
[2022-09-04 11:25] LABS: CHLORIDE 98 mmol/L (98-107); SODIUM 137 mmol/L (136-145)
[2022-09-04 11:27] LABS: CALCIUM 9.8 mg/dL (8.5-10.1)
[2022-09-04 11:28] LABS: ALBUMIN 3.6 g/dl (3.4-5.0); ANION GAP 14 MMOL/L (8-16); BLOOD UREA NITROGEN 32.5 mg/dL (7-18); CO2 24 mmol/L (21-32)
[2022-09-04 11:31] LABS: SGOT/AST 23 U/L (15-37); SGPT/ALT 20 U/L (13-61)
[2022-09-04 11:33] LABS: BILIRUBIN,TOTAL 0.6 mg/dL (0.2-1); TOT PROT 7.9 g/dl (6.4-8.2)
[2022-09-04 11:34] LABS: ALK PHOS 113 U/L (45-117)
[2022-09-04 12:16] LABS: GLUCOSE,RANDOM 452 mg/dL (74-106)
[2022-09-04] MEDS ORDERED: LORazepam 2 MG/ML SDV VIAL IVPUSH ONE (12:22)
[2022-09-04] MEDS ORDERED: levETIRAcetam 500 MG/5 ML INJECTION VIAL IVPB ONE ×2 (12:33→13:09)
[2022-09-04] MEDS ORDERED: INSULIN REGULAR HUMAN 100 UNITS/ML *VIAL IVPUSH ONE (12:49)
[2022-09-04] MEDS ORDERED: LABETALOL HCL 5 MG/1 ML (100MG/20 ML VIAL) IVPUSH ONE (13:37)
[2022-09-04] MEDS ORDERED: LABETALOL HCL 5 MG/1 ML (100MG/20 ML VIAL) ONE (13:48)
[2022-09-04] MEDS: HEPARIN NA (PORCINE) 5,000 UNITS/ML 1ML VIAL SQ SCH ×2 (13:51→21:44)
[2022-09-04] MEDS ORDERED: HEPARIN NA (PORCINE) 5,000 UNITS/ML 1ML VIAL ONE (13:51)
[2022-09-04] MEDS: MUPIROCIN 2% TOPICAL OINTMENT FOR DECOLONIZATION NS SCH ×2 (13:51→21:43)
[2022-09-04] MEDS ORDERED: SODIUM CHLORIDE 1,000 ML IV STA (14:11)
[2022-09-04 15:05] LABS: EPI CELLS >36 /uL (0-25.1); HYALINE CASTS 5 /uL (0-3.1); URINE APPEARANCE CLEAR; URINE BACTERIA 3 /uL (0-1359); URINE BILIRUBIN NEGATIVE (NEGATIVE); URINE COLOR YELLOW; URINE GLUCOSE (UA) 3+ (NEGATIVE); URINE KETONE TRACE (NEGATIVE); URINE LEUK ESTERASE NEGATIVE (NEGATIVE); URINE NITRITE NEGATIVE (NEGATIVE); URINE PROTEIN 4+ (NEGATIVE); URINE RBC 15 /uL (0-23.9); URINE UROBILINOGEN 0.2 mg/dL (0.2-1.0); URINE WBC 31 /uL (0-25.8)
[2022-09-04] MEDS ORDERED: NICARDIPINE 25 MG in DEXTROSE 5%-WATER - 240 ML IVPB SCH (15:15)
[2022-09-04 15:16] LABS: ARTERIAL BLOOD GAS BASE EXCESS -0.8 mmol/L (-2-2); ARTERIAL BLOOD GAS pH 7.364 (7.350-7.450)
[2022-09-04 15:19] LABS: ARTERIAL BLOOD GAS PO2 23.4 mmHg (80-100)
[2022-09-04 15:33] LABS: ALBUMIN 2.9 g/dl (3.4-5.0); BLOOD UREA NITROGEN 33.5 mg/dL (7-18); CALCIUM 8.7 mg/dL (8.5-10.1); MAGNESIUM 1.8 mg/dL (1.8-2.4)
[2022-09-04 15:35] LABS: PHOSPHOROUS 2.9 mg/dL (2.5-4.9)
[2022-09-04 15:37] LABS: BILIRUBIN,TOTAL 0.5 mg/dL (0.2-1); TOT PROT 6.4 g/dl (6.4-8.2)
[2022-09-04] MEDS ORDERED: INSULIN SLIDING SCALE (NOVOLOG) 1 VIAL SQ SCH (16:30)
[2022-09-04] MEDS ORDERED: PNEUMOC 20-VAL CONJ-DIP CRM/PF 0.5 ML SYRINGE IM ONE (17:15)
[2022-09-04] MEDS ORDERED: VANCOMYCIN/WATER FOR INJ (PEG) 1,000 MG/200 ML BAG IVPB ONE (17:45)
[2022-09-04] MEDS: PIPERACILLIN/TAZOB 2.25 GM 2.25 GM in DEXTROSE 5%-WATER - 50 ML IVPB SCH (18:03)
[2022-09-04] MEDS: SODIUM CHLORIDE 1,000 ML IV SCH (19:02)
[2022-09-04] MEDS: PANTOPRAZOLE SODIUM 40 MG VIAL IVPUSH SCH (19:02)
[2022-09-04] MEDS: INSULIN SLIDING SCALE (NOVOLOG) 1 VIAL SQ SCH (21:08)
[2022-09-04] MEDS: INSULIN (LEVEMIR) 100 UNITS/ML UNITS SQ SCH (21:44)
[2022-09-04] MEDS: CHLORHEXIDINE GLUCONATE 4% CLEANSER FOR DECOLONIZATION TP SCH (21:44)
[2022-09-05 00:19] LABS: LACTIC ACID 3.2 mmol/L (0.4-2.0)
[2022-09-05] MEDS: INSULIN SLIDING SCALE (NOVOLOG) 1 VIAL SQ SCH ×6 (02:12→21:27)
[2022-09-05] MEDS: PIPERACILLIN/TAZOB 2.25 GM 2.25 GM in DEXTROSE 5%-WATER - 50 ML IVPB SCH ×3 (04:15→17:10)
[2022-09-05] MEDS: HEPARIN NA (PORCINE) 5,000 UNITS/ML 1ML VIAL SQ SCH ×3 (06:25→21:27)
[2022-09-05] MEDS ORDERED: ATORVASTATIN CA 40 MG TABLET (FP) PO ONE (09:00)
[2022-09-05 09:09] LABS: BASO % 0.9 % (0-2.0); EOS % 0.6 % (0-4.5); HEMATOCRIT 39.1 % (32.4-45.2); HEMOGLOBIN 12.7 GM/dL (10.7-15.3); LYMPH % 6.8 % (8-40); MCH 28.2 pg (25.7-33.7); MCHC 32.6 g/dl (32.0-36.0); MEAN CELL VOLUME 86.5 fl (80-96); MEAN PLT VOLUME 9.4 fl (7.5-11.1); MONO % 7.5 % (3.8-10.2); NEUT % 84.2 % (42.8-82.8); PLATELET COUNT 192 10^3/uL (134-434); RBC 4.52 M/mm3 (3.60-5.2); WHITE BLOOD COUNT 9.2 K/mm3 (4.0-10.0)
[2022-09-05 09:43] LABS: CALCIUM 8.6 mg/dL (8.5-10.1)
[2022-09-05 09:44] LABS: ALBUMIN 2.8 g/dl (3.4-5.0); BLOOD UREA NITROGEN 41.9 mg/dL (7-18)
[2022-09-05 09:47] LABS: CREATININE 2.2 mg/dL (0.55-1.3); MAGNESIUM 1.9 mg/dL (1.8-2.4)
[2022-09-05 09:49] LABS: BILIRUBIN,TOTAL 0.5 mg/dL (0.2-1)
[2022-09-05 09:50] LABS: TOT PROT 6.2 g/dl (6.4-8.2)
[2022-09-05] MEDS ORDERED: ASPIRIN 81 MG CHEWABLE TABLETS PO SCH (10:00)
[2022-09-05] MEDS: PANTOPRAZOLE SODIUM 40 MG VIAL IVPUSH SCH (10:07)
[2022-09-05] MEDS: MUPIROCIN 2% TOPICAL OINTMENT FOR DECOLONIZATION NS SCH ×2 (15:03→21:28)
[2022-09-05] MEDS ORDERED: LABETALOL HCL 5 MG/1 ML (100MG/20 ML VIAL) IVPUSH ONE (16:55)
[2022-09-05] MEDS: SODIUM CHLORIDE 1,000 ML IV SCH (21:27)
[2022-09-05] MEDS: CHLORHEXIDINE GLUCONATE 4% CLEANSER FOR DECOLONIZATION TP SCH (21:28)
[2022-09-05] MEDS: INSULIN (LEVEMIR) 100 UNITS/ML UNITS SQ SCH (21:28)
[2022-09-05] MEDS ORDERED: ATORVASTATIN CA 40 MG TABLET (FP) PO SCH (22:00)
[2022-09-06] MEDS ORDERED: SODIUM CHLORIDE 1,000 ML IV SCH (00:23)
[2022-09-06] MEDS: INSULIN SLIDING SCALE (NOVOLOG) 1 VIAL SQ SCH ×6 (00:39→19:45)
[2022-09-06] MEDS: PIPERACILLIN/TAZOB 2.25 GM 2.25 GM in DEXTROSE 5%-WATER - 50 ML IVPB SCH ×3 (01:36→17:01)
[2022-09-06] MEDS: HEPARIN NA (PORCINE) 5,000 UNITS/ML 1ML VIAL SQ SCH ×3 (05:12→22:03)
[2022-09-06 07:41] LABS: HEMATOCRIT 39.6 % (32.4-45.2); HEMOGLOBIN 12.7 GM/dL (10.7-15.3); MCHC 32.1 g/dl (32.0-36.0); MEAN CELL VOLUME 87.1 fl (80-96); MEAN PLT VOLUME 9.5 fl (7.5-11.1); PLATELET COUNT 209 10^3/uL (134-434); RBC 4.55 M/mm3 (3.60-5.2); RDW 15.6 % (11.6-15.6); WHITE BLOOD COUNT 5.9 K/mm3 (4.0-10.0)
[2022-09-06 08:14] LABS: CALCIUM 8.7 mg/dL (8.5-10.1)
[2022-09-06 08:15] LABS: ALBUMIN 2.7 g/dl (3.4-5.0); BLOOD UREA NITROGEN 34.6 mg/dL (7-18); MAGNESIUM 1.9 mg/dL (1.8-2.4)
[2022-09-06 08:17] LABS: CREATININE 1.8 mg/dL (0.55-1.3)
[2022-09-06 08:18] LABS: PHOSPHOROUS 2.3 mg/dL (2.5-4.9)
[2022-09-06 08:19] LABS: BILIRUBIN,TOTAL 0.4 mg/dL (0.2-1); TOT PROT 5.9 g/dl (6.4-8.2)
[2022-09-06] MEDS: KCL 10 MEQ IVPB 10 MEQ/100 ML INFUS.BAG IVPB SCH ×2 (09:18→10:20)
[2022-09-06] MEDS: PANTOPRAZOLE SODIUM 40 MG VIAL IVPUSH SCH (09:39)
[2022-09-06] MEDS: MUPIROCIN 2% TOPICAL OINTMENT FOR DECOLONIZATION NS SCH ×2 (09:43→22:01)
[2022-09-06] MEDS: METOPROLOL TARTRATE 5 MG/5 ML VIAL IVPUSH PRN ×2 (09:44→15:34)
[2022-09-06] MEDS ORDERED: ASPIRIN 81 MG CHEWABLE TABLETS PO SCH (10:00)
[2022-09-06] MEDS ORDERED: METOPROLOL TARTRATE 25 MG TABLET (FP) PO SCH (10:00)
[2022-09-06] MEDS ORDERED: POTASSIUM PHOSPHATE 15 MM in DEXTROSE 5%-WATER - 250 ML IVPB ONE (10:48)
[2022-09-06] MEDS: POTASSIUM CHLORIDE 10 MEQ in SODIUM CHLORIDE 0.45% 1,000 ML IVPB SCH (12:45)
[2022-09-06] MEDS ORDERED: ATORVASTATIN CA 40 MG TABLET (FP) PO SCH (22:00)
[2022-09-06] MEDS: METOPROLOL TARTRATE 25 MG TABLET (FP) GT SCH (22:03)
[2022-09-06] MEDS: CHLORHEXIDINE GLUCONATE 4% CLEANSER FOR DECOLONIZATION TP SCH (22:03)
[2022-09-06] MEDS: ATORVASTATIN CA 40 MG TABLET (FP) GT SCH (22:03)
[2022-09-06] MEDS: INSULIN (LEVEMIR) 100 UNITS/ML UNITS SQ SCH (22:06)
[2022-09-07] MEDS: POTASSIUM CHLORIDE 10 MEQ in SODIUM CHLORIDE 0.45% 1,000 ML IVPB SCH (00:41)
[2022-09-07] MEDS: INSULIN SLIDING SCALE (NOVOLOG) 1 VIAL SQ SCH ×6 (00:42→21:03)
[2022-09-07] MEDS: PIPERACILLIN/TAZOB 2.25 GM 2.25 GM in DEXTROSE 5%-WATER - 50 ML IVPB SCH ×3 (02:00→17:43)
[2022-09-07] MEDS: HEPARIN NA (PORCINE) 5,000 UNITS/ML 1ML VIAL SQ SCH ×3 (06:29→21:04)
[2022-09-07 07:03] LABS: BASO % 0.6 % (0-2.0); EOS % 3.5 % (0-4.5); HEMATOCRIT 42.6 % (32.4-45.2); HEMOGLOBIN 14.2 GM/dL (10.7-15.3); MCH 28.6 pg (25.7-33.7); MCHC 33.2 g/dl (32.0-36.0); MEAN CELL VOLUME 86.2 fl (80-96); MEAN PLT VOLUME 9.3 fl (7.5-11.1); MONO % 8.1 % (3.8-10.2); NEUT % 76.8 % (42.8-82.8); PLATELET COUNT 211 10^3/uL (134-434); RBC 4.95 M/mm3 (3.60-5.2); RDW 15.5 % (11.6-15.6); WHITE BLOOD COUNT 6.4 K/mm3 (4.0-10.0)
[2022-09-07 07:25] LABS: ALBUMIN 3.2 g/dl (3.4-5.0); BLOOD UREA NITROGEN 22.9 mg/dL (7-18); MAGNESIUM 2.1 mg/dL (1.8-2.4)
[2022-09-07 07:28] LABS: CREATININE 1.5 mg/dL (0.55-1.3)
[2022-09-07 07:29] LABS: BILIRUBIN,TOTAL 0.6 mg/dL (0.2-1)
[2022-09-07] MEDS: PANTOPRAZOLE SODIUM 40 MG VIAL IVPUSH SCH (10:08)
[2022-09-07] MEDS: MUPIROCIN 2% TOPICAL OINTMENT FOR DECOLONIZATION NS SCH ×2 (10:08→21:04)
[2022-09-07] MEDS: ASPIRIN 81 MG CHEWABLE TABLETS GT SCH (10:08)
[2022-09-07] MEDS: METOPROLOL TARTRATE 25 MG TABLET (FP) GT SCH ×2 (10:08→21:04)
[2022-09-07] MEDS: SODIUM CHLORIDE 0.45%/POT 20 MEQ/1,000 ML INFUS.BAG IV SCH ×2 (10:37→20:59)
[2022-09-07] MEDS: METOPROLOL TARTRATE 5 MG/5 ML VIAL IVPUSH PRN (16:19)
[2022-09-07] MEDS: CHLORHEXIDINE GLUCONATE 4% CLEANSER FOR DECOLONIZATION TP SCH (21:04)
[2022-09-07] MEDS: ATORVASTATIN CA 40 MG TABLET (FP) GT SCH (21:04)
[2022-09-07] MEDS: INSULIN (LEVEMIR) 100 UNITS/ML UNITS SQ SCH (21:04)
[2022-09-08] MEDS: INSULIN SLIDING SCALE (NOVOLOG) 1 VIAL SQ SCH ×5 (00:19→20:53)
[2022-09-08] MEDS: PIPERACILLIN/TAZOB 2.25 GM 2.25 GM in DEXTROSE 5%-WATER - 50 ML IVPB SCH ×3 (02:08→17:05)
[2022-09-08] MEDS: HEPARIN NA (PORCINE) 5,000 UNITS/ML 1ML VIAL SQ SCH ×3 (06:30→21:01)
[2022-09-08 08:12] LABS: ALBUMIN 2.6 g/dl (3.4-5.0); BLOOD UREA NITROGEN 20.3 mg/dL (7-18); CALCIUM 8.8 mg/dL (8.5-10.1)
[2022-09-08 08:15] LABS: CREATININE 1.6 mg/dL (0.55-1.3)
[2022-09-08 08:17] LABS: BILIRUBIN,TOTAL 0.6 mg/dL (0.2-1); TOT PROT 5.8 g/dl (6.4-8.2)
[2022-09-08] MEDS: MUPIROCIN 2% TOPICAL OINTMENT FOR DECOLONIZATION NS SCH ×2 (11:06→21:01)
[2022-09-08] MEDS: ASPIRIN 81 MG CHEWABLE TABLETS GT SCH (11:06)
[2022-09-08] MEDS: PANTOPRAZOLE SODIUM 40 MG VIAL IVPUSH SCH (11:06)
[2022-09-08] MEDS: METOPROLOL TARTRATE 25 MG TABLET (FP) GT SCH ×2 (11:06→21:03)
[2022-09-08] MEDS: SODIUM CHLORIDE 0.45%/POT 20 MEQ/1,000 ML INFUS.BAG IV SCH (14:56)
[2022-09-08] MEDS: CHLORHEXIDINE GLUCONATE 4% CLEANSER FOR DECOLONIZATION TP SCH (21:01)
[2022-09-08] MEDS: INSULIN (LEVEMIR) 100 UNITS/ML UNITS SQ SCH (21:02)
[2022-09-08] MEDS: ATORVASTATIN CA 40 MG TABLET (FP) GT SCH (21:03)
[2022-09-08] MEDS: METOPROLOL TARTRATE 5 MG/5 ML VIAL IVPUSH PRN (23:41)
[2022-09-09] MEDS: INSULIN SLIDING SCALE (NOVOLOG) 1 VIAL SQ SCH ×7 (00:07→20:34)
[2022-09-09] MEDS ORDERED: ACETAMINOPHEN 650 MG/20.3 ML ORAL SOLUTION (CUPS) GT ONE (01:30)
[2022-09-09] MEDS ORDERED: hydrALAZINE HCL 20 MG/ML VIAL IVPUSH ONE (01:33)
[2022-09-09] MEDS: PIPERACILLIN/TAZOB 2.25 GM 2.25 GM in DEXTROSE 5%-WATER - 50 ML IVPB SCH ×3 (01:56→17:49)
[2022-09-09] MEDS: HEPARIN NA (PORCINE) 5,000 UNITS/ML 1ML VIAL SQ SCH ×3 (05:55→21:27)
[2022-09-09] MEDS: ASPIRIN 81 MG CHEWABLE TABLETS GT SCH (10:05)
[2022-09-09] MEDS: MUPIROCIN 2% TOPICAL OINTMENT FOR DECOLONIZATION NS SCH (10:05)
[2022-09-09] MEDS: METOPROLOL TARTRATE 25 MG TABLET (FP) GT SCH ×2 (10:05→21:28)
[2022-09-09] MEDS: PANTOPRAZOLE SODIUM 40 MG VIAL IVPUSH SCH (10:05)
[2022-09-09] MEDS: METOPROLOL TARTRATE 5 MG/5 ML VIAL IVPUSH PRN (16:45)
[2022-09-09] MEDS: CHLORHEXIDINE GLUCONATE 4% CLEANSER FOR DECOLONIZATION TP SCH (21:28)
[2022-09-09] MEDS: INSULIN (LEVEMIR) 100 UNITS/ML UNITS SQ SCH (21:28)
[2022-09-09] MEDS: ATORVASTATIN CA 40 MG TABLET (FP) GT SCH (21:28)
[2022-09-10] MEDS: INSULIN SLIDING SCALE (NOVOLOG) 1 VIAL SQ SCH ×6 (00:28→21:52)
[2022-09-10] MEDS: PIPERACILLIN/TAZOB 2.25 GM 2.25 GM in DEXTROSE 5%-WATER - 50 ML IVPB SCH ×3 (01:28→17:39)
[2022-09-10] MEDS: METOPROLOL TARTRATE 5 MG/5 ML VIAL IVPUSH PRN ×3 (02:25→10:24)
[2022-09-10] MEDS: HEPARIN NA (PORCINE) 5,000 UNITS/ML 1ML VIAL SQ SCH ×3 (05:52→21:57)
[2022-09-10] MEDS: METOPROLOL TARTRATE 25 MG TABLET (FP) GT SCH (09:02)
[2022-09-10] MEDS: PANTOPRAZOLE SODIUM 40 MG VIAL IVPUSH SCH (09:02)
[2022-09-10] MEDS: ASPIRIN 81 MG CHEWABLE TABLETS GT SCH (09:16)
[2022-09-10] MEDS: hydrALAZINE HCL 20 MG/ML VIAL IVPUSH PRN (11:29)
[2022-09-10 12:05] VITALS: BMI 31.8
[2022-09-10] MEDS: INSULIN (LEVEMIR) 100 UNITS/ML UNITS SQ SCH (21:56)
[2022-09-10] MEDS: CHLORHEXIDINE GLUCONATE 4% CLEANSER FOR DECOLONIZATION TP SCH (21:57)
[2022-09-10] MEDS: ATORVASTATIN CA 40 MG TABLET (FP) GT SCH (21:57)
[2022-09-10] MEDS: METOPROLOL TARTRATE 50 MG TABLET (FP) GT SCH (21:57)
[2022-09-11] MEDS: INSULIN SLIDING SCALE (NOVOLOG) 1 VIAL SQ SCH ×5 (00:32→21:32)
[2022-09-11] MEDS: PIPERACILLIN/TAZOB 2.25 GM 2.25 GM in DEXTROSE 5%-WATER - 50 ML IVPB SCH (01:18)
[2022-09-11] MEDS: hydrALAZINE HCL 20 MG/ML VIAL IVPUSH PRN ×2 (04:07→20:36)
[2022-09-11] MEDS: HEPARIN NA (PORCINE) 5,000 UNITS/ML 1ML VIAL SQ SCH ×3 (05:03→21:56)
[2022-09-11] MEDS: METOPROLOL TARTRATE 50 MG TABLET (FP) GT SCH ×2 (10:11→21:57)
[2022-09-11] MEDS: ASPIRIN 81 MG CHEWABLE TABLETS GT SCH (10:11)
[2022-09-11] MEDS: PANTOPRAZOLE SODIUM 40 MG VIAL IVPUSH SCH (10:11)
[2022-09-11 17:10] LABS: BASO % 0.7 % (0-2.0); EOS % 3.4 % (0-4.5); HEMATOCRIT 38.8 % (32.4-45.2); HEMOGLOBIN 12.7 GM/dL (10.7-15.3); LYMPH % 12.6 % (8-40); MCHC 32.9 g/dl (32.0-36.0); MEAN CELL VOLUME 85.2 fl (80-96); MEAN PLT VOLUME 9.7 fl (7.5-11.1); MONO % 11.7 % (3.8-10.2); NEUT % 71.6 % (42.8-82.8); PLATELET COUNT 199 10^3/uL (134-434); RBC 4.55 M/mm3 (3.60-5.2); RDW 15.5 % (11.6-15.6); WHITE BLOOD COUNT 5.1 K/mm3 (4.0-10.0)
[2022-09-11 17:40] LABS: ALBUMIN 2.8 g/dl (3.4-5.0); BLOOD UREA NITROGEN 29.7 mg/dL (7-18)
[2022-09-11 17:43] LABS: CREATININE 1.5 mg/dL (0.55-1.3)
[2022-09-11 17:44] LABS: BILIRUBIN,TOTAL 0.4 mg/dL (0.2-1)
[2022-09-11] MEDS: CHLORHEXIDINE GLUCONATE 4% CLEANSER FOR DECOLONIZATION TP SCH (21:32)
[2022-09-11] MEDS: ATORVASTATIN CA 40 MG TABLET (FP) GT SCH (21:57)
[2022-09-11] MEDS: INSULIN (LEVEMIR) 100 UNITS/ML UNITS SQ SCH (21:57)
[2022-09-12] MEDS: INSULIN SLIDING SCALE (NOVOLOG) 1 VIAL SQ SCH ×7 (00:05→23:56)
[2022-09-12] MEDS: hydrALAZINE HCL 20 MG/ML VIAL IVPUSH PRN (02:20)
[2022-09-12] MEDS: HEPARIN NA (PORCINE) 5,000 UNITS/ML 1ML VIAL SQ SCH ×3 (05:47→21:42)
[2022-09-12 08:07] LABS: ALBUMIN 3.2 g/dl (3.4-5.0); BLOOD UREA NITROGEN 26.3 mg/dL (7-18); CALCIUM 9.5 mg/dL (8.5-10.1)
[2022-09-12 08:10] LABS: CREATININE 1.4 mg/dL (0.55-1.3)
[2022-09-12 08:13] LABS: BILIRUBIN,TOTAL 0.4 mg/dL (0.2-1); TOT PROT 7.2 g/dl (6.4-8.2)
[2022-09-12] MEDS: ASPIRIN 81 MG CHEWABLE TABLETS GT SCH (09:52)
[2022-09-12] MEDS: METOPROLOL TARTRATE 50 MG TABLET (FP) GT SCH ×2 (09:53→21:42)
[2022-09-12] MEDS: PANTOPRAZOLE SODIUM 40 MG VIAL IVPUSH SCH (09:53)
[2022-09-12] MEDS: ATORVASTATIN CA 40 MG TABLET (FP) GT SCH (21:42)
[2022-09-12] MEDS: INSULIN (LEVEMIR) 100 UNITS/ML UNITS SQ SCH (21:42)
[2022-09-12] MEDS: CHLORHEXIDINE GLUCONATE 4% CLEANSER FOR DECOLONIZATION TP SCH (21:42)
[2022-09-13] MEDS: INSULIN SLIDING SCALE (NOVOLOG) 1 VIAL SQ SCH ×6 (04:51→20:55)
[2022-09-13] MEDS: HEPARIN NA (PORCINE) 5,000 UNITS/ML 1ML VIAL SQ SCH ×3 (05:41→21:17)
[2022-09-13] MEDS: hydrALAZINE HCL 20 MG/ML VIAL IVPUSH PRN (06:24)
[2022-09-13] MEDS: NIFEdipine E.R. 30 MG TABLET PO SCH (09:42)
[2022-09-13] MEDS: ASPIRIN 81 MG CHEWABLE TABLETS GT SCH (09:42)
[2022-09-13] MEDS: METOPROLOL TARTRATE 50 MG TABLET (FP) GT SCH ×2 (09:42→21:22)
[2022-09-13] MEDS: PANTOPRAZOLE SODIUM 40 MG VIAL IVPUSH SCH (09:43)
[2022-09-13] MEDS: CHLORHEXIDINE GLUCONATE 4% CLEANSER FOR DECOLONIZATION TP SCH (21:17)
[2022-09-13] MEDS: INSULIN (LEVEMIR) 100 UNITS/ML UNITS SQ SCH (21:17)
[2022-09-13] MEDS: ATORVASTATIN CA 40 MG TABLET (FP) GT SCH (21:22)
[2022-09-14] MEDS: INSULIN SLIDING SCALE (NOVOLOG) 1 VIAL SQ SCH ×7 (00:10→21:26)
[2022-09-14] MEDS: HEPARIN NA (PORCINE) 5,000 UNITS/ML 1ML VIAL SQ SCH ×3 (06:16→21:26)
[2022-09-14 07:20] LABS: EOS % 2.2 % (0-4.5); HEMATOCRIT 40.9 % (32.4-45.2); HEMOGLOBIN 13.3 GM/dL (10.7-15.3); LYMPH % 12.1 % (8-40); MCH 28.2 pg (25.7-33.7); MCHC 32.6 g/dl (32.0-36.0); MEAN CELL VOLUME 86.6 fl (80-96); MEAN PLT VOLUME 9.9 fl (7.5-11.1); NEUT % 74.7 % (42.8-82.8); PLATELET COUNT 206 10^3/uL (134-434); RBC 4.72 M/mm3 (3.60-5.2); RDW 15.5 % (11.6-15.6); WHITE BLOOD COUNT 6.3 K/mm3 (4.0-10.0)
[2022-09-14 07:53] LABS: CALCIUM 9.3 mg/dL (8.5-10.1)
[2022-09-14 07:54] LABS: ALBUMIN 2.9 g/dl (3.4-5.0)
[2022-09-14 07:57] LABS: CREATININE 1.5 mg/dL (0.55-1.3)
[2022-09-14 07:58] LABS: BILIRUBIN,TOTAL 0.7 mg/dL (0.2-1); TOT PROT 6.3 g/dl (6.4-8.2)
[2022-09-14] MEDS: PANTOPRAZOLE SODIUM 40 MG VIAL IVPUSH SCH (09:25)
[2022-09-14] MEDS: NIFEdipine E.R. 30 MG TABLET PO SCH (09:25)
[2022-09-14] MEDS: METOPROLOL TARTRATE 50 MG TABLET (FP) GT SCH ×2 (09:25→21:26)
[2022-09-14] MEDS: ASPIRIN 81 MG CHEWABLE TABLETS GT SCH (09:25)
[2022-09-14] MEDS: INSULIN (LEVEMIR) 100 UNITS/ML UNITS SQ SCH (09:26)
[2022-09-14] MEDS: ATORVASTATIN CA 40 MG TABLET (FP) GT SCH (21:26)
[2022-09-15] MEDS: INSULIN (LEVEMIR) 100 UNITS/ML UNITS SQ SCH ×3 (01:19→21:02)
[2022-09-15] MEDS: INSULIN SLIDING SCALE (NOVOLOG) 1 VIAL SQ SCH ×6 (01:19→20:56)
[2022-09-15] MEDS: CHLORHEXIDINE GLUCONATE 4% CLEANSER FOR DECOLONIZATION TP SCH (01:20)
[2022-09-15] MEDS: HEPARIN NA (PORCINE) 5,000 UNITS/ML 1ML VIAL SQ SCH ×3 (06:11→21:02)
[2022-09-15] MEDS: ASPIRIN 81 MG CHEWABLE TABLETS GT SCH (11:37)
[2022-09-15] MEDS: METOPROLOL TARTRATE 50 MG TABLET (FP) GT SCH ×2 (11:37→21:02)
[2022-09-15] MEDS: NIFEdipine E.R. 30 MG TABLET PO SCH (11:37)
[2022-09-15] MEDS: PANTOPRAZOLE SODIUM 40 MG VIAL IVPUSH SCH (11:42)
[2022-09-15] MEDS ORDERED: ACETAMINOPHEN 325 MG TABLET (FP) ONE (13:31)
[2022-09-15] MEDS: ATORVASTATIN CA 40 MG TABLET (FP) GT SCH (21:02)
[2022-09-16] MEDS: INSULIN SLIDING SCALE (NOVOLOG) 1 VIAL SQ SCH ×6 (01:07→21:36)
[2022-09-16] MEDS: HEPARIN NA (PORCINE) 5,000 UNITS/ML 1ML VIAL SQ SCH ×3 (05:22→21:32)
[2022-09-16] MEDS: PANTOPRAZOLE SODIUM 40 MG VIAL IVPUSH SCH (10:55)
[2022-09-16] MEDS: NIFEdipine E.R. 30 MG TABLET PO SCH (10:55)
[2022-09-16] MEDS: METOPROLOL TARTRATE 50 MG TABLET (FP) GT SCH ×2 (10:55→21:37)
[2022-09-16] MEDS: ASPIRIN 81 MG CHEWABLE TABLETS GT SCH (10:56)
[2022-09-16] MEDS: INSULIN (LEVEMIR) 100 UNITS/ML UNITS SQ SCH ×2 (10:56→21:35)
[2022-09-16] MEDS: ACETAMINOPHEN 1000 MG/100 ML BAG IVPB PRN (15:27)
[2022-09-16] MEDS: ATORVASTATIN CA 40 MG TABLET (FP) GT SCH (21:37)
[2022-09-17] MEDS: ACETAMINOPHEN 1000 MG/100 ML BAG IVPB PRN (00:49)
[2022-09-17] MEDS: HEPARIN NA (PORCINE) 5,000 UNITS/ML 1ML VIAL SQ SCH ×3 (06:07→22:25)
[2022-09-17] MEDS: INSULIN SLIDING SCALE (NOVOLOG) 1 VIAL SQ SCH ×4 (06:10→22:21)
[2022-09-17 09:16] LABS: CALCIUM 9.9 mg/dL (8.5-10.1)
[2022-09-17 09:17] LABS: ALBUMIN 3.2 g/dl (3.4-5.0); BLOOD UREA NITROGEN 24.2 mg/dL (7-18)
[2022-09-17 09:20] LABS: CREATININE 1.5 mg/dL (0.55-1.3)
[2022-09-17 09:21] LABS: TOT PROT 6.6 g/dl (6.4-8.2)
[2022-09-17 09:22] LABS: BILIRUBIN,TOTAL 0.6 mg/dL (0.2-1)
[2022-09-17] MEDS: ASPIRIN 81 MG CHEWABLE TABLETS GT SCH (10:29)
[2022-09-17] MEDS: INSULIN (LEVEMIR) 100 UNITS/ML UNITS SQ SCH ×2 (10:29→22:20)
[2022-09-17] MEDS: PANTOPRAZOLE SODIUM 40 MG VIAL IVPUSH SCH (10:30)
[2022-09-17] MEDS: METOPROLOL TARTRATE 50 MG TABLET (FP) GT SCH ×2 (10:30→22:25)
[2022-09-17] MEDS: NIFEdipine E.R. 30 MG TABLET PO SCH (10:30)
[2022-09-17] MEDS: ATORVASTATIN CA 40 MG TABLET (FP) GT SCH (22:12)
[2022-09-18] MEDS: HEPARIN NA (PORCINE) 5,000 UNITS/ML 1ML VIAL SQ SCH (06:11)
[2022-09-18] MEDS: INSULIN SLIDING SCALE (NOVOLOG) 1 VIAL SQ SCH ×4 (06:13→22:05)
[2022-09-18] MEDS: ASPIRIN/DIPYRIDAMOLE 25 MG/200 MG CAPSULE PO SCH (09:25)
[2022-09-18] MEDS: NIFEdipine E.R. 30 MG TABLET PO SCH (09:26)
[2022-09-18] MEDS: METOPROLOL TARTRATE 50 MG TABLET (FP) GT SCH ×2 (09:26→22:04)
[2022-09-18] MEDS ORDERED: PANTOPRAZOLE 40 MG TABLET PO SCH (10:00)
[2022-09-18] MEDS ORDERED: ACETAMINOPHEN 500 MG TABLET (FP) PO PRN (10:26)
[2022-09-18] MEDS: INSULIN (LEVEMIR) 100 UNITS/ML UNITS SQ SCH ×2 (11:29→22:06)
[2022-09-18] MEDS: TOPIRAMATE 25 MG TABLET GT SCH ×2 (17:28→22:04)
[2022-09-18] MEDS: ATORVASTATIN CA 40 MG TABLET (FP) GT SCH (22:04)
[2022-09-19] MEDS: ASPIRIN/DIPYRIDAMOLE 25 MG/200 MG CAPSULE PO SCH (00:38)
[2022-09-19] MEDS ORDERED: ACETAMINOPHEN 650 MG/20.3 ML ORAL SOLUTION (CUPS) PO PRN (04:51)
[2022-09-19] MEDS: INSULIN SLIDING SCALE (NOVOLOG) 1 VIAL SQ SCH ×4 (06:41→22:32)
[2022-09-19 08:45] LABS: CALCIUM 9.8 mg/dL (8.5-10.1)
[2022-09-19 08:46] LABS: ALBUMIN 3.3 g/dl (3.4-5.0); BLOOD UREA NITROGEN 28.3 mg/dL (7-18)
[2022-09-19 08:49] LABS: CREATININE 1.8 mg/dL (0.55-1.3)
[2022-09-19 08:51] LABS: BILIRUBIN,TOTAL 0.4 mg/dL (0.2-1); TOT PROT 6.8 g/dl (6.4-8.2)
[2022-09-19] MEDS: TOPIRAMATE 25 MG TABLET GT SCH ×2 (09:48→22:32)
[2022-09-19] MEDS: NIFEdipine E.R. 30 MG TABLET NR SCH (09:48)
[2022-09-19] MEDS: METOPROLOL TARTRATE 50 MG TABLET (FP) GT SCH ×2 (09:48→22:32)
[2022-09-19] MEDS: FAMOTIDINE 40 MG/5 ML ORAL SUSPENSION GT SCH (09:49)
[2022-09-19] MEDS ORDERED: PANTOPRAZOLE SOD 40 MG SUSPENSION PACKET PO SCH (10:00)
[2022-09-19] MEDS: INSULIN (LEVEMIR) 100 UNITS/ML UNITS SQ SCH ×2 (10:59→22:33)
[2022-09-19] MEDS ORDERED: SODIUM CHLORIDE 0.45% 1,000 ML IV SCH (11:45)
[2022-09-19] MEDS: ATORVASTATIN CA 40 MG TABLET (FP) GT SCH (22:32)
[2022-09-20] MEDS: INSULIN SLIDING SCALE (NOVOLOG) 1 VIAL SQ SCH ×4 (06:06→22:13)
[2022-09-20 07:45] LABS: CALCIUM 9.4 mg/dL (8.5-10.1)
[2022-09-20 07:46] LABS: BLOOD UREA NITROGEN 29.7 mg/dL (7-18)
[2022-09-20 07:49] LABS: CREATININE 1.9 mg/dL (0.55-1.3)
[2022-09-20 07:51] LABS: BILIRUBIN,TOTAL 0.4 mg/dL (0.2-1); TOT PROT 6.2 g/dl (6.4-8.2)
[2022-09-20] MEDS: METOPROLOL TARTRATE 50 MG TABLET (FP) GT SCH ×2 (09:07→22:13)
[2022-09-20] MEDS: FAMOTIDINE 40 MG/5 ML ORAL SUSPENSION GT SCH (10:44)
[2022-09-20] MEDS: NIFEdipine E.R. 30 MG TABLET NR SCH (10:44)
[2022-09-20] MEDS: INSULIN (LEVEMIR) 100 UNITS/ML UNITS SQ SCH ×2 (10:45→22:12)
[2022-09-20] MEDS: TOPIRAMATE 25 MG TABLET GT SCH ×2 (12:43→22:13)
[2022-09-20] MEDS: ATORVASTATIN CA 40 MG TABLET (FP) GT SCH (22:12)
[2022-09-21] MEDS: INSULIN SLIDING SCALE (NOVOLOG) 1 VIAL SQ SCH ×4 (06:16→23:04)
[2022-09-21] MEDS: TOPIRAMATE 25 MG TABLET GT SCH ×2 (10:58→22:55)
[2022-09-21] MEDS: ASPIRIN 81 MG CHEWABLE TABLETS PO SCH (10:58)
[2022-09-21] MEDS: METOPROLOL TARTRATE 50 MG TABLET (FP) GT SCH ×2 (10:58→22:55)
[2022-09-21] MEDS: NIFEdipine E.R. 30 MG TABLET NR SCH (10:59)
[2022-09-21] MEDS: INSULIN (LEVEMIR) 100 UNITS/ML UNITS SQ SCH ×2 (11:39→23:04)
[2022-09-21] MEDS: FAMOTIDINE 40 MG/5 ML ORAL SUSPENSION GT SCH (14:55)
[2022-09-21] MEDS: ATORVASTATIN CA 40 MG TABLET (FP) GT SCH (22:56)
[2022-09-22] MEDS: INSULIN SLIDING SCALE (NOVOLOG) 1 VIAL SQ SCH ×3 (06:16→17:05)
[2022-09-22] MEDS: INSULIN (LEVEMIR) 100 UNITS/ML UNITS SQ SCH (10:26)
[2022-09-22] MEDS: TOPIRAMATE 25 MG TABLET GT SCH (10:30)
[2022-09-22] MEDS: NIFEdipine E.R. 30 MG TABLET NR SCH (10:30)
[2022-09-22] MEDS: METOPROLOL TARTRATE 50 MG TABLET (FP) GT SCH (10:30)
[2022-09-22] MEDS: ASPIRIN 81 MG CHEWABLE TABLETS PO SCH (10:30)
[2022-09-22] MEDS: FAMOTIDINE 40 MG/5 ML ORAL SUSPENSION GT SCH (10:31)
[2022-09-22 13:42] VITALS: RESP 19
[2022-09-22 13:48] VITALS: BP 157/77; PULSE 57; TEMP 97.5
== END 2022-09-22 19:07 | DRG 64 ==
LOC: JER 09:16 → JERBED 13:17 → JICU 14:56 → J2W 09-05 20:22 → J4S 09-14 15:42
PROVIDERS: ADMIT Family Medicine; ATTEND Family Medicine
PROC: 0DH67UZ Insertion of Feeding Device into Stomach, Via Natural or Artificial Opening (ICD-10-PCS; principal; 2022-09-06)
PROC: 3E0G76Z Introduction of Nutritional Substance into Upper GI, Via Natural or Artificial Opening (ICD-10-PCS; 2022-09-06)
DX: I63.511 Cerebral infarction due to unspecified occlusion or stenosis of right middle cerebral artery (principal); I61.9 Nontraumatic intracerebral hemorrhage, unspecified; J18.9 Pneumonia, unspecified organism; E87.0 Hyperosmolality and hypernatremia; E87.20 Acidosis, unspecified; I13.0 Hypertensive heart and chronic kidney disease with heart failure and stage 1 through stage 4 chronic kidney disease, or unspecified chronic kidney disease; I50.32 Chronic diastolic (congestive) heart failure; N17.9 Acute kidney failure, unspecified; I24.8 Other forms of acute ischemic heart disease; F03.90 Unspecified dementia, unspecified severity, without behavioral disturbance, psychotic disturbance, mood disturbance, and anxiety; E11.22 Type 2 diabetes mellitus with diabetic chronic kidney disease; E78.5 Hyperlipidemia, unspecified; E11.40 Type 2 diabetes mellitus with diabetic neuropathy, unspecified; Z79.84 Long term (current) use of oral hypoglycemic drugs; E86.1 Hypovolemia; E11.65 Type 2 diabetes mellitus with hyperglycemia; I25.10 Atherosclerotic heart disease of native coronary artery without angina pectoris; R56.9 Unspecified convulsions; N18.30 Chronic kidney disease, stage 3 unspecified; R13.10 Dysphagia, unspecified; E78.00 Pure hypercholesterolemia, unspecified; R74.01 Elevation of levels of liver transaminase levels
CPT/HCPCS: 0241U-QW; 36415; 36600; 70450-TC; 70551-TC; 71045-TC-FY; 72125-TC; 74018-TC-FY; 76705-TC; 80053; 80061; 81003; 82010; 82550; 82553; 82803; 82962; 83036; 83605; 83735; 84100; 84443; 84484; 85025; 85027; 85610; 85730; 86850; 86900; 86901; 87040; 87086; 93005; 93010; 93306-TC; 93880-TC; 97161-GP; 99291; C9803-CS; J1644; J3480; U0003; U0005

== ENCOUNTER 2023-01-15 08:30 | Inpatient (IN) | payer OTHER ==
[2023-01-15] MEDS ORDERED: VANCOMYCIN 1 GM in D5W (PRE-DOCKED) 1,000 MG/250 ML IVPB ONE (08:41)
[2023-01-15] MEDS ORDERED: SODIUM CHLORIDE 0.9% 1000 ML INFUS.BAG IV ONE ×2 (08:41→09:57)
[2023-01-15] MEDS ORDERED: PIPERACILLIN/TAZOB 4.5 GM 4.5 GM in DEXTROSE 5%-WATER 100 ML IVPB ONE (08:41)
[2023-01-15] MEDS ORDERED: VANCOMYCIN/WATER FOR INJ (PEG) 1,000 MG/200 ML BAG IVPB ONE (08:50)
[2023-01-15] MEDS ORDERED: PIPERACILLIN/TAZOB 4.5 GM 4.5 GM/100 ML BAG IVPB ONE (08:50)
[2023-01-15] MEDS ORDERED: ACETAMINOPHEN 1000 MG/100 ML BAG IVPB ONE (09:00)
[2023-01-15 09:10] VITALS: BMI 30.1
[2023-01-15] MEDS ORDERED: ACETAMINOPHEN INJECTION 100 ML IVPB ONE (09:20)
[2023-01-15 09:37] LABS: EPI CELLS 27 /uL (0-25.1); HYALINE CASTS 3 /uL (0-3.1); PH,URINE 7.5 (5.0-8.0); URINE APPEARANCE TURBID; URINE BACTERIA >9,000 /uL (0-1359); URINE BILIRUBIN NEGATIVE (NEGATIVE); URINE COLOR DK YELLOW; URINE GLUCOSE (UA) NEGATIVE (NEGATIVE); URINE KETONE TRACE (NEGATIVE); URINE LEUK ESTERASE 3+ (NEGATIVE); URINE NITRITE NEGATIVE (NEGATIVE); URINE PROTEIN 2+ (NEGATIVE); URINE RBC 38 /uL (0-23.9); URINE WBC 1089 /uL (0-25.8); VENOUS PCO2 36.2 mmHg (38-52); VENOUS PH 7.285 (7.310-7.410)
[2023-01-15 09:38] LABS: BASO % 0.6 % (0-2.0); EOS % 0.3 % (0-4.5); HEMATOCRIT 31.7 % (32.4-45.2); HEMOGLOBIN 10.6 GM/dL (10.7-15.3); LYMPH % 10.3 % (8-40); MCH 30.3 pg (25.7-33.7); MCHC 33.5 g/dl (32.0-36.0); MEAN CELL VOLUME 90.6 fl (80-96); MONO % 6.5 % (3.8-10.2); NEUT % 82.3 % (42.8-82.8); RDW 15.2 % (11.6-15.6); WHITE BLOOD COUNT 14.6 K/mm3 (4.0-10.0)
[2023-01-15 09:46] LABS: INR 1.25 (0.83-1.09); PROTHROMBIN TIME (PATIENT) 14.5 SEC (9.7-13.0)
[2023-01-15 09:48] LABS: ACTIVATED PTT 36.1 SECONDS (25.2-36.5)
[2023-01-15 10:00] LABS: CHLORIDE 115 mmol/L (98-107); SODIUM 145 mmol/L (136-145)
[2023-01-15 10:01] LABS: PLATELET COUNT 169 10^3/uL (134-434)
[2023-01-15 10:02] LABS: ALBUMIN 2.5 g/dl (3.4-5.0); ANION GAP 12 MMOL/L (8-16); BLOOD UREA NITROGEN 55.9 mg/dL (7-18); CALCIUM 8.8 mg/dL (8.5-10.1); CO2 18 mmol/L (21-32); GLUCOSE,RANDOM 281 mg/dL (74-106)
[2023-01-15 10:06] LABS: BILIRUBIN,TOTAL 0.4 mg/dL (0.2-1); CREATININE 3.4 mg/dL (0.55-1.3); SGOT/AST 49 U/L (15-37); SGPT/ALT 21 U/L (13-61); TOT PROT 6.4 g/dl (6.4-8.2)
[2023-01-15 10:08] LABS: ALK PHOS 105 U/L (45-117)
[2023-01-15 10:20] LABS: LACTIC ACID 6.1 mmol/L (0.4-2.0)
[2023-01-15] MEDS ORDERED: ALBUTEROL SO4 HFA INHALER IH PRN (11:26)
[2023-01-15 12:13] LABS: LACTIC ACID 6.7 mmol/L (0.4-2.0)
[2023-01-15] MEDS: DEXTROSE 5%-0.45% SALINE 1,000 ML IV SCH (12:21)
[2023-01-15] MEDS ORDERED: LACTATED RINGERS SOLUTION 1000 ML INFUS.BAG IV ONE (13:20)
[2023-01-15] MEDS ORDERED: HEPARIN NA (PORCINE) 5,000 UNITS/ML 1ML VIAL ONE (13:22)
[2023-01-15] MEDS: HEPARIN NA (PORCINE) 5,000 UNITS/ML 1ML VIAL SQ SCH ×2 (13:25→22:01)
[2023-01-15] MEDS: INSULIN SLIDING SCALE (NOVOLOG) 1 VIAL SQ SCH (17:50)
[2023-01-15] MEDS ORDERED: PIPERACILLIN/TAZOB 2.25 GM 2.25 GM in DEXTROSE 5%-WATER - 50 ML IVPB SCH (18:00)
[2023-01-16] MEDS: PIPERACILLIN/TAZOB 2.25 GM 2.25 GM in DEXTROSE 5%-WATER - 50 ML IVPB SCH ×3 (01:31→17:42)
[2023-01-16] MEDS: DEXTROSE 5%-0.45% SALINE 1,000 ML IV SCH (05:38)
[2023-01-16] MEDS: HEPARIN NA (PORCINE) 5,000 UNITS/ML 1ML VIAL SQ SCH (06:35)
[2023-01-16] MEDS: INSULIN SLIDING SCALE (NOVOLOG) 1 VIAL SQ SCH ×3 (06:41→17:12)
[2023-01-16] MEDS ORDERED: DEXTROSE 5%-0.45% SALINE 1,000 ML IV SCH ×2 (07:50→09:09)
[2023-01-16 08:20] LABS: BASO % 0.7 % (0-2.0); EOS % 1.2 % (0-4.5); HEMATOCRIT 31.1 % (32.4-45.2); HEMOGLOBIN 10.5 GM/dL (10.7-15.3); MCH 30.8 pg (25.7-33.7); MCHC 33.9 g/dl (32.0-36.0); MEAN CELL VOLUME 90.9 fl (80-96); MEAN PLT VOLUME 10.6 fl (7.5-11.1); MONO % 4.7 % (3.8-10.2); NEUT % 76.4 % (42.8-82.8); PLATELET COUNT 122 10^3/uL (134-434); RBC 3.42 M/mm3 (3.60-5.2)
[2023-01-16 08:46] LABS: BLOOD UREA NITROGEN 58.7 mg/dL (7-18)
[2023-01-16 08:48] LABS: CREATININE 3.5 mg/dL (0.55-1.3)
[2023-01-16] MEDS ORDERED: PANTOPRAZOLE SODIUM 40 MG VIAL IVPUSH SCH (10:00)
[2023-01-16] MEDS ORDERED: ASPIRIN 300 MG SUPP.RECT RC SCH (10:00)
[2023-01-16] MEDS ORDERED: VANCOMYCIN/WATER FOR INJ (PEG) 1,000 MG/200 ML BAG IVPB ONE (10:27)
[2023-01-16 12:32] LABS: LACTIC ACID 4.7 mmol/L (0.4-2.0)
[2023-01-16] MEDS ORDERED: APIXABAN 2.5 MG TABLET PO SCH (12:45)
[2023-01-16] MEDS ORDERED: ACETAMINOPHEN 1000 MG/100 ML BAG IVPB ONE (17:24)
[2023-01-16] MEDS ORDERED: LACTATED RINGERS SOLUTION 1,000 ML/1,000 ML INFUS.BAG IV SCH (18:15)
[2023-01-16 22:15] VITALS: RESP 20
[2023-01-17] MEDS: PIPERACILLIN/TAZOB 2.25 GM 2.25 GM in DEXTROSE 5%-WATER - 50 ML IVPB SCH (01:45)
[2023-01-17] MEDS ORDERED: ATORVASTATIN CA 80 MG TABLET (FP) PO SCH (03:53)
[2023-01-17] MEDS ORDERED: APIXABAN 2.5 MG TABLET PO SCH (03:53)
[2023-01-17 06:08] VITALS: BP 96/48; PULSE 86; TEMP 97.6
[2023-01-17] MEDS: INSULIN SLIDING SCALE (NOVOLOG) 1 VIAL SQ SCH (06:15)
[2023-01-17 06:36] LABS: BASO % 0.5 % (0-2.0); EOS % 0.8 % (0-4.5); HEMATOCRIT 29.7 % (32.4-45.2); LYMPH % 12.7 % (8-40); MCH 30.5 pg (25.7-33.7); MCHC 33.6 g/dl (32.0-36.0); MEAN CELL VOLUME 90.9 fl (80-96); MONO % 5.7 % (3.8-10.2); NEUT % 80.3 % (42.8-82.8); PLATELET COUNT 114 10^3/uL (134-434); RBC 3.27 M/mm3 (3.60-5.2); RDW 14.6 % (11.6-15.6)
[2023-01-17 07:07] LABS: CALCIUM 8.1 mg/dL (8.5-10.1)
[2023-01-17 07:08] LABS: BLOOD UREA NITROGEN 69.7 mg/dL (7-18)
[2023-01-17 07:11] LABS: CREATININE 3.8 mg/dL (0.55-1.3)
[2023-01-17 07:30] LABS: LACTIC ACID 4.1 mmol/L (0.4-2.0)
[2023-01-17] MEDS ORDERED: ASPIRIN COATED 81 MG TABLET.EC PO SCH (10:00)
== END 2023-01-17 07:30 | disposition expired | DRG 871 ==
LOC: JER 08:30 → JERBED 12:14 → J4S 16:46
PROVIDERS: ADMIT Internal Medicine; ATTEND Internal Medicine
DX: A41.9 Sepsis, unspecified organism (principal); G93.41 Metabolic encephalopathy; I63.9 Cerebral infarction, unspecified; I69.354 Hemiplegia and hemiparesis following cerebral infarction affecting left non-dominant side; N39.0 Urinary tract infection, site not specified; E87.20 Acidosis, unspecified; I24.8 Other forms of acute ischemic heart disease; N17.9 Acute kidney failure, unspecified; I69.322 Dysarthria following cerebral infarction; I69.391 Dysphagia following cerebral infarction; R13.10 Dysphagia, unspecified; E11.40 Type 2 diabetes mellitus with diabetic neuropathy, unspecified; N18.9 Chronic kidney disease, unspecified; F03.90 Unspecified dementia, unspecified severity, without behavioral disturbance, psychotic disturbance, mood disturbance, and anxiety; K21.9 Gastro-esophageal reflux disease without esophagitis; I25.10 Atherosclerotic heart disease of native coronary artery without angina pectoris; Z86.718 Personal history of other venous thrombosis and embolism; E78.5 Hyperlipidemia, unspecified; Z79.4 Long term (current) use of insulin; R65.20 Severe sepsis without septic shock; I48.91 Unspecified atrial fibrillation; I12.9 Hypertensive chronic kidney disease with stage 1 through stage 4 chronic kidney disease, or unspecified chronic kidney disease; E11.22 Type 2 diabetes mellitus with diabetic chronic kidney disease; Z66 Do not resuscitate; E86.0 Dehydration; D64.9 Anemia, unspecified
CPT/HCPCS: 0241U-QW; 36415; 70450-TC; 71045-TC-FY; 74176-TC; 80048; 80053; 80061; 81003; 82550; 82553; 82803; 82962; 83605; 84484; 85025; 85610; 85730; 86850; 86900; 86901; 87040; 87086; 87186; 87324; 87449; 93005; 93010; 99285-25; G0480; J1644